=== PATIENT | male | born 1950 | race Caucasian/White ===

== ENCOUNTER 2016-11-16 22:34 | Inpatient (IN) ==
[2016-11-17 00:43] LABS: Basophils % 0.4 % (0.0-0.8); Eosinophils # 0.3 10*3/uL (0.0-0.87); Eosinophils % 3.7 % (0.00-10.9); Hematocrit 37.7 VOL% (42.0-52.0); Hemoglobin 13.7 GM/DL (14.0-18.0); Immature Granulocytes % 0.1 %; Immature Granulocytes Absolute 0.01 #; Lymphocytes # 3.1 10*3/uL (1.4-4.0); Lymphocytes % 39.2 % (21.2-54.2); Mean Corpuscular HGB Conc 36.3 GM/DL (32-36); Mean Corpuscular Hemoglobin 31 PG (27-34); Mean Corpuscular Volume 85.9 FL (87-102); Mean Platelet Volume 9.1 FL (9.6-12.0); Monocytes # 0.7 10*3/uL (0.11-0.8); Monocytes % 8.5 % (1.7-12.7); Neutrophils # 3.8 10*3/uL (1.4-7.4); Neutrophils % 48.1 % (38.7-73.9); Platelet Count 234 T/CUMM (130-400); Red Blood Count 4.39 MC/CUMM (3.8-5.5); Red Cell Distribution Width 12.5 % (9.3-17.3); White Blood Count 7.9 T/CUMM (4-12)
[2016-11-17 01:18] LABS: Alanine Aminotransferase 17 U/L (16-61); Albumin 3.5 G/DL (3.4-5.0); Alkaline Phosphatase 83 U/L (45-117); Aspartate Amino Transferase 20 U/L (0-37); Bilirubin,Total < 0.39 MG/DL (0.2-1.0); Blood Urea Nitrogen 13 MG/DL (7-18); Calcium 8.1 MG/DL (8.5-10.1); Glucose 97 MG/DL (74-106); Osmolality,Calculated 278.4 MOS/KG (273-304); Potassium 3.5 MMOL/L (3.5-5.1); Sodium 140 MMOL/L (136-145); Total Protein 6.8 G/DL (6.4-8.3); Troponin I Only 0.051 NG/ML (0.00-0.045)
--- NOTE | 2016-11-17 01:46 | EKG Report ---
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
--- NOTE | 2016-11-17 02:08 | Emergency Department Note ---
Arrival - Arrival Chief Complaint: Fall Stated Complaint: Fall ED Nursing Triage Note: Pt was at home when he fell approximately 3-4 hours ago. Stated he hit his head and lost consciousness for a few minutes. Pt has complaint of headache, neck pain, and back pain rated as a 10 on 0-10 scale. No bruising or visible deformities. Mode of Arrival: Stretcher Time Seen by Provider: 11/16/16 23:01 - History of Present Illness HPI Narrative: This is a 66-year-old white male with a history of hypertension, COPD, and type 2 diabetes who presents with a syncopal episode which occurred just prior to arrival. The patient says he was in his kitchen when suddenly he felt dizzy. He woke up in the floor with neck pain and head ache. He believes that he struck his head on a toolbox because it was also on the floor when he woke up. Does not remember any of his syncopal episode. He denies any chest pains palpitations diaphoresis nor vomiting Allergies/Adverse Reactions: Allergies Allergy/AdvReac Type Severity Reaction Status Date / Time Trovafloxacin [From Trovan] Allergy Severe HIVES Verified 11/16/16 22:47 venom-honey bee Allergy ANAPHYLAXIS Verified 11/16/16 22:47 [bee venom (honey bee)] COMBID Allergy Severe HIVES Uncoded 11/16/16 22:47 Home Medications: Home Medications Medication Instructions Recorded Confirmed Type Indomethacin Cap [Indocin Cap] 25 mg PO TID #30 capsule 04/17/16 Rx Tizanidine HCl [Zanaflex] 2 mg PO Q6H #40 capsule 04/17/16 Rx predniSONE TAB [PredniSONE] 20 mg PO DAILY #15 tablet 04/17/16 Rx Review of System - Review of System Constitutional: Absent: fever, night sweats Eyes: Absent: redness, vision change Head/Ears/Nose/Throat: Absent: epistaxis, nasal drainage Respiratory: Absent: respiratory distress, wheezing Cardiovascular: Present: dyspnea on exertion, syncope. Absent: chest pain, palpitations Gastrointestinal: Absent: diarrhea, constipation Genitourinary male: Absent: dysuria, hematuria Musculoskeletal: Absent: joint swelling, lower back pain Skin: Absent: change in color, change in hair/nails Neurological: Absent: numbness, paresthesias Psychiatric: Absent: anxiety, depression Endocrine: Absent: heat intolerance, polydipsia Hematological/Lymphatic: Absent: easy bruising, lymphadenopathy Allergic/Immunologic: Absent: urticaria, itchy eyes Medical,Surgical,& Family Hx - Medical History Cardio: History of: Hypertension Neurology: No history of: Seizures Endocrine: History of: Diabetes Mellitus (NIDDM) Respiratory: History of: COPD Gastrointestinal: History of: GERD Other: History of: Miscellaneous Medical Problems (sleep apnea) - Social History Smoking Status: Former smoker Frequency of Alcohol Use: None Type of Drug Use: None Exam Vital Signs: Vital Signs Temperature 97.8 F 11/16/16 22:42 Pulse Rate 79 11/16/16 22:42 Respiratory Rate 18 11/16/16 22:42 Blood Pressure 131/88 11/16/16 22:42 O2 Sat by Pulse Oximetry 94 L 11/16/16 22:42 - General General appearance: alert - Head Head exam: Present: atraumatic, normocephalic - Eye Eye exam: Present: normal appearance, PERRL, EOMI - ENT ENT exam: Present: normal exam, normal oropharynx - Neck Neck exam: Present: normal inspection, full ROM - Chest Chest inspection: Present: normal inspection - Respiratory Respiratory exam: Present: normal lung sounds bilaterally - Cardiovascular Cardiovascular exam: Present: regular rate, normal rhythm - Abdominal Exam Abdominal exam: Present: soft, normal bowel sounds - Extremities Exam Extremities exam: Present: normal inspection, full ROM - Back Exam Back exam: Present: normal inspection, full ROM - Neurological Exam Neurological exam: Present: alert, oriented X3, CN II-XII intact - Psychiatric Psychiatric exam: Present: normal affect, normal mood - Skin Skin exam: Present: warm, dry Course Course Narrative: The patient's troponin is slightly elevated. Electric cardiogram looks normal. The CT scan of the brain and the cervical spine are normal. Because the patient had a syncopal episode and a slightly elevated troponin it seems reasonable the patient be admitted to the hospital for further evaluation and treatment. The case was discussed with the hospitalist who agreed to admit the patient to the hospital. Results - Labs CBC & BMP: 11/16/16 00:35 11/16/16 00:35 Disposition Clinical Impression: Syncope, Elevated troponin Disposition: Still a Patient
[2016-11-17] MEDS ORDERED: ACETAMINOPHEN 325 MG TABLET PO PRN (03:26)
[2016-11-17] MEDS ORDERED: ONDANSETRON 4 MG/2 ML VIAL IV PRN (03:26)
--- NOTE | 2016-11-17 05:53 | Hospitalist History & Physical ---
Assessment and Plan - Time spent with patient Time spent with patient: Less than 30 minutes (1) Syncope Status: Acute Assessment and plan: Will place on telemetry floor CT head negative Neuro checks q4 Serial troponins Current Visit: Yes (2) Elevated troponin Status: Acute Current Visit: Yes (3) Hypertension Status: Chronic Assessment and plan: Will restart medications once confirmed Current Visit: No (4) Diabetes Status: Chronic Assessment and plan: SSI with Accuchecks Will restart home medications once confirmed. Current Visit: No History of Present Illness Chief complaint: syncope episode History of present illness: Called to the ER for Mr. Lantigua who is a 66 year old male that passed out at home while in the kitchen earlier today. He denied chest pain, shortness of breath, palpitations prior to the fall. He states he did experience dizziness before falling. He was unsure of how long he was unconscious or if he hit his head. Patient awoke to find himself on the floor of his home. Patient states he has had hot and cold spells for the last two weeks. In the ER, a CT of the head and C-spine were performed and were negative. EKG was negative. Patient had an elevated troponin. He will be admitted on the telemetry floor for close monitor with serial troponins and cardiology consultation. Home Medications Medication Instructions Recorded Confirmed Type Allopurinol 1 tablet PO DAILY 11/17/16 11/17/16 History Amlodipine Besylate 1 tablet PO DAILY 11/17/16 11/17/16 History Clopidogrel [Plavix] 1 tablet PO DAILY 11/17/16 11/17/16 History Cyclobenzaprine [Flexeril] 1 tablet PO TID PRN 11/17/16 11/17/16 History Furosemide Tab [Lasix Tab] 1 tablet PO BID 11/17/16 11/17/16 History Gemfibrozil 1 tablet PO BID 11/17/16 11/17/16 History Lisinopril 1 tablet PO BID 11/17/16 11/17/16 History Metoprolol Succinate 1 tablet PO DAILY 11/17/16 11/17/16 History Mirtazapine 1 tablet PO BEDTIME 11/17/16 11/17/16 History Omeprazole 1 capsule PO DAILY 11/17/16 11/17/16 History Oxycodone HCl/Acetaminophen 1 tablet PO QID PRN 11/17/16 11/17/16 History [Oxycodone-Acetaminophen 10-325] Phenytoin Sodium Extended 2 capsule PO DAILY W/BREAKFAST 11/17/16 11/17/16 History Phenytoin Sodium Extended 3 capsule PO DAILY W/SUPPER 11/17/16 11/17/16 History Potassium Chloride 1 tablet PO DAILY 11/17/16 11/17/16 History Pregabalin [Lyrica] 1 capsule PO BID 11/17/16 11/17/16 History Saxagliptin HCl/Metformin HCl 1 tablet PO DAILY 11/17/16 11/17/16 History [Kombiglyze Xr 5-1,000 mg Tab] Zolpidem Tartrate [Ambien] 1 tablet PO BEDTIME PRN 11/17/16 11/17/16 History Allergies Allergy/AdvReac Type Severity Reaction Status Date / Time Trovafloxacin [From Trovan] Allergy Severe HIVES Verified 11/16/16 22:47 venom-honey bee Allergy ANAPHYLAXIS Verified 11/16/16 22:47 [bee venom (honey bee)] COMBID Allergy Severe HIVES Uncoded 11/16/16 22:47 Medical,Surgical,& Family Hx - Medical History Cardio: History of: Hypertension Neurology: History of: Neurological Problems (tremors) No history of: Seizures Endocrine: History of: Diabetes Mellitus (NIDDM), Dyslipidemia Rheumatology: History of;: Gout Respiratory: History of: COPD, Obstructive Sleep Apnea Gastrointestinal: History of: GERD Musculoskeletal: History of: Back/Neck Problems Other: History of: Miscellaneous Medical Problems (sleep apnea) - Surgical History Cardiac Surgeries: Sugical HX of: Femoral-Popliteal Bypass Graft - Family History Family History: Reports;: Family Diabetes, Family Heart Disease - Social History Smoking Status: Former smoker Frequency of Alcohol Use: None Type of Drug Use: None Marital Status: Single Lives With:: Alone Functional capacity: independent ambulation - Constitutional Constitutional: Present: chills. Absent: anorexia, weakness - Cardiovascular Cardiovascular: Absent: chest pain at rest, chest pain with activity, diaphoresis, dyspnea, edema, orthopnea, palpitations - Respiratory Respiratory: Absent: cough - Gastrointestinal Gastrointestinal: Absent: abdominal pain, constipation, diarrhea, dysphagia, nausea, vomiting - Genitourinary Genitourinary: Absent: difficulty urinating - Neurological Neurological: Present: dizziness Exam - Constitutional Vitals: Period Temp Pulse Resp BP Sys/[place] Pulse Ox Last 24 Hr 97.8 F-98.5 F 72-79 16-18 131-156/88-96 94-97 General appearance: normal weight, over weight - Head Head exam: Present: normal inspection, normocephalic - Eye Eye exam: Present: EOMI Pupils: Present: JASMIN, normal accommodation - ENT ENT exam: Present: normal exam - Neck Neck exam: Present: normal inspection - Respiratory Respiratory exam: Present: clear to auscultation bilaterally. Absent: accessory muscle use (Respirations even and non-labored with symmetrical rise and fall of chest noted. ) - Cardiovascular Cardiovascular exam: Present: regular rate and rhythm - GI/Abdominal GI/Abdominal exam: Present: normal bowel sounds, soft. Absent: firm, tenderness - Extremities Exam Extremities exam: Present: normal inspection, normal capillary refill, full ROM - Back Exam Back exam: Present: normal inspection - Neurological Exam Neurological exam: Present: alert, oriented X3 (Respirations even and non- labored with symmetrical rise and fall of chest noted. ) - Psychiatric Psychiatric exam: Present: normal affect - Skin Skin exam: Present: normal color, warm, dry, intact Results - Labs CBC & BMP: 11/16/16 00:35 11/16/16 00:35 Lab Results: I have reviewed the past 24 hour labs
[2016-11-17] MEDS ORDERED: DIAZEPAM 5 MG TABLET PO ONE (08:00)
[2016-11-17] MEDS ORDERED: diphenhydrAMINE CAP 25 MG CAPSULE PO ONE (08:00)
[2016-11-17] MEDS ORDERED: ASPIRIN 325 MG TABLET PO ONE (08:04)
--- NOTE | 2016-11-17 08:10 | CT Report ---
CT of the head without contrast. Indication: Syncope. Head trauma. No prior studies. There is a preliminary report from the [facility]. There is calcific plaque present within the vertebral arteries and intracranial internal carotid arteries. There is generalized prominence of the ventricles and sulci consistent with atrophy of aging. There is no mass effect, midline shift, or area of hemorrhage. No cortical infarcts are seen at this time. Suspected small lacunar infarct in the left external capsule. The calvarium is intact. The included paranasal sinuses and the mastoid air cells are clear. Impression: Generalized atrophy. Chronic ischemic change. No evidence of acute intracranial injury. The CT exam was performed using one or more of the following dose reduction techniques: Automated exposure control, adjustment of the mA and/or kV according to patient size, or use of iterative reconstruction technique. PROCEDURE INTERPRETED AT [facility] DEPARTMENT OF RADIOLOGY Final Report Signed by: Dr. Omaira Reid
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
--- NOTE | 2016-11-17 08:31 | Hospitalist Progress Note ---
Assessment and Plan (1) Syncope Status: Acute Assessment and plan: Abrupt onset unassociated with prodrome. Angiographic evidence of subacute left anterior descending coronary artery occlusion with successful percutaneous intervention performed. 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 Current Visit: No Qualifiers: Diabetes mellitus type: type 2 Hospitalist: Subjective Interval history: 66-year-old male hypertensive, diabetic with history of obstructive sleep apnea sustained an abrupt syncopal episode while at home. Patient uses a walker for what sounds like a fairly substantial diabetic peripheral neuropathy. He has episodes of upright lightheadedness but on this occasion reports no prodrome before his loss of consciousness. He has had some neck pain since the fall but no chest pain shortness of breath etc. Patient has been evaluated by cardiology with coronary angiography completed earlier this morning. Findings indicate a subacute occlusion of the left anterior descending coronary artery associated with appropriate segmental wall motion abnormality. Left ventricular end-diastolic pressure was normal percutaneous intervention was successfully undertaken. It is felt that the symptoms described by the patient several weeks ago were likely the clinical manifestations of this occlusion. Exam - Constitutional Vitals: Period Temp Pulse Resp BP Sys/[place] Pulse Ox Last 24 Hr 97.4 F-98.5 F 72-84 16-20 131-156/88-97 94-98 General appearance: over weight - Respiratory Respiratory exam: Present: clear to auscultation bilaterally. Absent: rales, rhonchi, wheezes - Cardiovascular Cardiovascular exam: Present: regular rate and rhythm - GI/Abdominal GI/Abdominal exam: Present: normal bowel sounds. Absent: distended, organomegaly, tenderness - Extremities Exam Extremities exam: Absent: edema - Neurological Exam Neurological exam: Present: alert, oriented X3 Results - Labs CBC & BMP: 11/16/16 00:35 11/16/16 00:35 Labs: Cardiac troponin I 0.05 - Impressions Sinus rhythm with intra-atrial conduction delay and mid precordial T-wave inversions. - Diagnostic Findings Procedure: CT: report reviewed by me (CT of head shows atrophy with small vessel changes)
[2016-11-17] MEDS: LISINOPRIL 20 MG TABLET PO SCH ×2 (08:34→21:10)
[2016-11-17] MEDS: amLODIPine 10 MG TABLET PO SCH (08:35)
[2016-11-17] MEDS: CLOPIDOGREL 75 MG TABLET PO SCH (08:35)
[2016-11-17] MEDS: PANTOPRAZOLE 40 MG TABLET PO SCH (08:35)
[2016-11-17] MEDS ORDERED: HEPARIN/NACL 0.9% 2 UNITS/ML 1,000 ML IV ONE (08:36)
[2016-11-17] MEDS ORDERED: LIDOCAINE 1% 20 ML VIAL ONE (08:36)
[2016-11-17] MEDS: METOPROLOL SUCCINATE XL 50 MG TABLET PO SCH (08:36)
[2016-11-17] MEDS: SODIUM CHLORIDE 0.45% 1,000 ML IV SCH ×2 (08:37→17:18)
[2016-11-17] MEDS ORDERED: MIDAZOLAM 2 MG/2 ML VIAL ONE ×3 (08:39→09:46)
[2016-11-17] MEDS ORDERED: fentaNYL 100 MCG/2 ML VIAL ONE (08:40)
[2016-11-17] MEDS ORDERED: NITROGLYCERIN DRIP 50 MG/250 ML BOTTLE IV ONE (08:45)
[2016-11-17] MEDS ORDERED: VERAPAMIL 5 MG/2 ML VIAL ONE (08:45)
[2016-11-17] MEDS ORDERED: ENOXAPARIN 40 MG/0.4 ML SYRINGE SUBCUT SCH (09:00)
[2016-11-17] MEDS ORDERED: diphenhydrAMINE 50 MG/1 ML VIAL ONE (09:04)
--- NOTE | 2016-11-17 09:27 | CT Report ---
CT of the cervical spine without contrast. Indication: Syncope. Neck trauma, injury, and pain. There is a preliminary report from [facility]. There is a comparison study from November 29, 2009. Axial images were obtained with sagittal and coronal 2-D reconstructions. The appearance of the craniovertebral junction is within normal limits. There are prominent degenerative changes between the anterior ring of C1 and the odontoid. There is straightening of the normal lordosis of the cervical spine which was also present in 2010. At C3-C4, there is posterior osteophyte formation and disc bulging. At C4-C5, there is calcification in the anterior longitudinal ligament, posterior osteophyte formation and disc bulging. At C5-C6, there is loss of disc space height, anterior longitudinal ligament calcification, and prominent anterior and posterior osteophytes with posterior disc bulging. At C6-C7, there is moderate anterior osteophyte formation and calcification within the anterior longitudinal ligament. Is posterior osteophyte formation and posterior disc bulging. At the 7-T1 and T1-T2, there is calcification in the anterior longitudinal ligament, degenerative endplate changes, posterior disc bulging, and posterior osteophyte formation. There is multilevel facet arthropathy. No fracture or dislocation. No lytic or blastic lesion. Impression: Straightening of the normal curvature of the cervical spine. This may be positional in nature or due to muscle spasm. It is unchanged compared to 2009. Degenerative changes are present, which have progressed since the previous study. No evidence of acute fracture. The CT exam was performed using one or more of the following dose reduction techniques: Automated exposure control, adjustment of the mA and/or kV according to patient size, or use of iterative reconstruction technique. PROCEDURE INTERPRETED AT [facility] DEPARTMENT OF RADIOLOGY Final Report Signed by: Dr. Omaira Reid
[2016-11-17] MEDS ORDERED: HEPARIN 5,000 UNIT/1 ML VIAL ONE (09:46)
[2016-11-17] MEDS ORDERED: CLOPIDOGREL 300 MG TABLET ONE (10:11)
--- NOTE | 2016-11-17 10:29 | Cardiac Catheterization ---
Date of Procedure:: 11/17/16 Pre-op Diagnosis: Syncope and story consistent with subacute presentation for myocardial infarction Post-op diagnosis: other (100% occluded mid left anterior distending artery with JOSEPH 0 flow status post successful PCI with a 2.5 x 16 mm Synergy drug- eluting stent postdilated to high pressure atmospheres with an NC Quantum balloon less than 10% residual angiographic stenosis and JOSEPH-3 flow at completion) Procedure: After consent was taken from the patient. Time out was taken and recorded. Taken to the catheterization lab for left heart catheterization via the right radial approach. The wire could not transition the takeoff of the carotid. Lovenox was not given at this time however the cocktail was given intra- arterially there is no apparent complication of this area. The procedure was converted to right femoral access. 1% lidocaine was infiltrated in the skin and subcutaneous tissue overlying the right femoral artery. Modified Seldinger technique and an 18-gauge [place] needle was used for access to the right femoral artery. An 0.35 J-wire was advanced through the needle into the central aorta under fluoroscopy. A small skin was made and a 6 [place] sheath was placed over the wire. The sheath was aspirated and flushed. A JL46 was advanced over the wires in the left main coronary artery was selectively engaged. Multiple orthogonal views of the left system were obtained. The catheter was then exchanged over the wire. The sheath was aspirated and flushed. A JR4 catheter was advanced over the wire into the central aorta. The right coronary was selectively engaged and orthogonal views of the right coronary artery were obtained. The catheter was then exchanged over the wire, the sheath was aspirated and flushed. At this time an angled pigtail catheter was advanced across the aortic valve into the ventricle. Pressure measurements were obtained and a cine ventriculogram was performed in the EPPERSON projection with 10 mL contrast. Pullback measurements were performed. The cloth bleaching range operator chief reviewed the films and the room set up for the intervention mode. 5000 units of intravenous heparin were given the ACT was 210 seconds and additional 2000 units of heparin were given. The patient was on a background of chronic clopidogrel therapy. At this time and EBU 4.0 guiding cath advanced over the catheter into central aorta the left main could not be cannulated. Cath was then exchanged over wire for an EBU 3.5 guiding catheter. At this time a 180 cm ScanSocial-water wire was advanced to what appeared to be the cap of this occluded vessel and it would not cross it would buckle and was in a very small nipple but would not cross the short 100% occlusion. The wire was then removed and a exchange length Confianza Pro was advanced to the area previously accessed by the pro-water and with minimal manipulation crossed the Into the distal vessel. Once this was verified with collateral visualization of the distal vessel 135 cm Turnpike was advanced over the Confianza Pro and it was exchanged for an exchange length pro-water wire. The Turnpike was removed and a 2.0 x 12 mm trek balloon was advanced area stenosis in 2 inflations were made there was JOSEPH II flow reestablished in the distal vessel wire was verified to be clearly in the lumen at this point. Now a 2.5 x 16 mm Synergy balloon stent was advanced and deployed in the mid LAD with the marker at the takeoff of the first diagonal. Because of the morphology of the plaque at this takeoff a previously U short pro-water had been placed in the diagonal. There was some plaque shift. Both vessels were widely patent with JOSEPH-3 flow. At this time the stent was postdilated to high pressure atmospheres with a 2.5 x 15 mm NC Quantum balloon. At this time there was what appeared to be plaque shift or spasm in the diagonal and the wire was left in place in this diagonal. 200 mcg of intracoronary nitroglycerin were given there was dramatic improvement in this vessel does appear to be spasm. Both wires removed in 2 orthogonal views were taken. There is no apparent complication the guiding catheter was exchanged over the wire of the sheaths were aspirated and flushed. The sheath was aspirated and flushed and a right femoral and iliac angiography was performed. The access site was amenable for closure and the area was reprepped with ChloraPrep and draped with sterile towels. The Mynx closure device was used in standard technique. There was no hematoma and distal pulses were good. At this time a TR band was placed over the right radial access and good hemostasis was obtained. Total diagnostic fluoroscopy time 20.8 minutes total fluoroscopy dose 1453 mg. Total contrast exposure 280 cc of Omnipaque FINDINGS: LV: 130/1 LVEDP: 21 Ao: 120/66 EF: Estimated to be 40% with some maximal opacification of the right ventricle appears to be mid to distal anterior wall hypokinesis LM: Angiographically normal LAD: The proximal segment is angiographically normal gives rise to a moderate size first diagonal. There is a smooth nearly flush occlusion at the takeoff of the first diagonal. There is a very small or scant nipple there is also takeoff of a septal hydraulic repairer at this location. There is collateralization of the distal left anterior descending artery from the left circumflex distribution it reaches the apex and ascends briefly the inferior ventricular myocardium. Clinically this occlusion appeared to occur approximately 3-1/2 weeks ago. Morphologically it looks like a chronic occlusion however historically it appears to be about 3 weeks old LCx: The large co-ndominant vessel is angiographically normal RCA: An average size vessel is co-dominant RFA/JESUS: Angiographically normal however stick is not amenable to closure with Angio-Seal Assessment: 1. 100% occluded mid left anterior descending artery status post successful PCI with KELLY 1 (2.5 x 16 mm Synergy) postdilated to high pressure atmospheres with 2 5 NC balloon 2. Ischemic cardiomyopathy, decompensated end-diastolic pressure of 21 mmHg 3. Diabetes 4. Dyslipidemia 6. Hypertension PLAN: 1. Therapeutic lifestyle changes and risk factor modification 2. Dual antiplatelet therapy for a minimum of 1 year 3. DELIA inhibitor, beta-kendra, statin 4. Monitor for complications including dysrhythmia and anemia 5. Cardiac rehabilitation Implants: 2.5 x 16 mm Synergy drug-eluting stent and minx closure device Anesthesia: moderate conscious sedation Surgeon / Physician: Dora Thacker Wardrobe Technician: none Estimated blood loss: none Specimens: none sent Condition: stable - Medications / Follow-up
[2016-11-17] MEDS: PHENYTOIN ER 100 MG CAPSULE PO SCH ×2 (10:41→16:39)
[2016-11-17] MEDS: sitaGLIPtin 100 MG TABLET PO SCH (10:41)
[2016-11-17] MEDS: GEMFIBROZIL 600 MG TABLET PO SCH ×2 (10:41→21:10)
[2016-11-17] MEDS: PREGABALIN 75 MG CAPSULE PO SCH ×2 (10:42→21:11)
[2016-11-17] MEDS: POTASSIUM CHLORIDE 20 MEQ TABLET PO SCH (10:42)
[2016-11-17] MEDS: FUROSEMIDE 20 MG TABLET PO SCH ×2 (10:42→16:38)
[2016-11-17] MEDS: ASPIRIN EC 81 MG TABLET PO SCH (10:42)
[2016-11-17] MEDS: ALLOPURINOL 100 MG TABLET PO SCH (10:42)
[2016-11-17] MEDS ORDERED: CYCLOBENZAPRINE 10 MG TABLET PO PRN (13:28)
[2016-11-17] MEDS ORDERED: ZALEPLON 5 MG CAPSULE PO PRN (13:28)
--- NOTE | 2016-11-17 13:36 | ECHO Report ---
Steve Lantigua Exam Date: 11/17/2016 12:29 Referring Physician: Technologist: Marivel Meza Age: 66 Ht (in): 61 Wt (lb): 249 Gender: M Exam Location: [facility] Echo Indications: HTN, diabetes, PAD, CHF, elevated troponin, syncope, dyslipidemia, GERD, Hx. TIA, post cath BP: 140 / 97 HR: 84 Rhythm: Sinus Technical Quality: Technically difficult study IMPRESSIONS Left ventricular ejection fraction is estimated at 55 %. There is mid to distal anterior wall hypokinesis. Moderate concentric left ventricular hypertrophy with grade I diastolic dysfunction. Tricuspid regurgitation velocities suggest a RVSP of 17 mmHg + RAP. MEASUREMENTS (Male / Female) Normal Values 2D ECHO LV Diastolic Diameter PLAX 4.3 cm 4.2 - 5.9 / 3.9 - 5.3 cm LV Systolic Diameter PLAX 3.3 cm LV Fractional Shortening PLAX 22.6 % IVS Diastolic Thickness 1.6 cm 0.6 - 1.0 / 0.6 - 0.9 cm LVPW Diastolic Thickness 1.5 cm 0.6 - 1.0 / 0.6 - 0.9 cm Aortic Root Diameter 3.0 cm LA Systolic Diameter LX 3.4 cm 3.0 - 4.0 / 2.7 - 3.8 cm DOPPLER TR Peak Velocity 208.0 cm/s TR Peak Gradient 17.3 mmHg FINDINGS Left Ventricle Normal left ventricular cavity size. Moderate concentric left ventricular hypertrophy with grade I diastolic dysfunction. Left ventricular ejection fraction is estimated at 55 %. There is mid to distal anterior wall hypokinesis. Is seen best in the parasternal long axis views. Right Ventricle Normal right ventricular size. Right Atrium Normal right atrial size. Left Atrium Normal left atrial size. Mitral Valve Mild mitral annular and leaflet calcification with mild mitral regurgitation. Aortic Valve Mild aortic valve sclerosis without stenosis or regurgitation. Tricuspid Valve Morphologically normal tricuspid valve. Trace tricuspid valve regurgitation. Tricuspid regurgitation velocities suggest a RVSP of 17 mmHg + RAP. Pulmonic Valve Morphologically normal pulmonic valve. Pericardium No pericardial effusion. Aorta Normal size aortic root and proximal ascending aorta. Dora Thacker (Electronically Signed) Final Date: 17 November 2016 13:35
[2016-11-17] MEDS: ATORVASTATIN 40 MG TABLET PO SCH (21:10)
[2016-11-17] MEDS: MIRTAZAPINE 15 MG TABLET PO SCH (21:10)
[2016-11-17] MEDS: oxyCODONE/ACETAMINOPHEN 5-325 MG TABLET PO PRN (21:11)
[2016-11-18 04:29] LABS: Basophils % 0.4 % (0.0-0.8); Eosinophils # 0.3 10*3/uL (0.0-0.87); Eosinophils % 3.3 % (0.00-10.9); Hematocrit 38.3 VOL% (42.0-52.0); Hemoglobin 13.3 GM/DL (14.0-18.0); Immature Granulocytes % 0.4 %; Immature Granulocytes Absolute 0.03 #; Lymphocytes # 2.3 10*3/uL (1.4-4.0); Lymphocytes % 28.3 % (21.2-54.2); Mean Corpuscular HGB Conc 34.7 GM/DL (32-36); Mean Corpuscular Hemoglobin 30 PG (27-34); Mean Corpuscular Volume 87.2 FL (87-102); Mean Platelet Volume 9.4 FL (9.6-12.0); Monocytes # 0.8 10*3/uL (0.11-0.8); Monocytes % 9.8 % (1.7-12.7); Neutrophils # 4.8 10*3/uL (1.4-7.4); Neutrophils % 57.8 % (38.7-73.9); Platelet Count 257 T/CUMM (130-400); Red Blood Count 4.39 MC/CUMM (3.8-5.5); Red Cell Distribution Width 12.6 % (9.3-17.3); White Blood Count 8.2 T/CUMM (4-12)
[2016-11-18 05:04] LABS: Calcium 8.1 MG/DL (8.5-10.1); Osmolality,Calculated 281.3 MOS/KG (273-304); Potassium 3.8 MMOL/L (3.5-5.1)
--- NOTE | 2016-11-18 07:36 | Cardiology Progress Note ---
Assessment and Plan (1) Dyslipidemia Status: Chronic Current Visit: Yes (2) Gastroesophageal reflux disease Status: Chronic Current Visit: Yes (3) Syncope Status: Acute Assessment and plan: See HPI Current Visit: Yes (4) Hypertension Status: Chronic Current Visit: No (5) Diabetes Status: Chronic Current Visit: No Qualifiers: Diabetes mellitus type: type 2 (6) History of TIA (transient ischemic attack) Status: Chronic Current Visit: Yes (7) PAD (peripheral artery disease) Status: Chronic Assessment and plan: He has good distal pulses but says that he has previously had stents placed by Dr. Paz Current Visit: Yes (8) Polypharmacy Status: Chronic Current Visit: Yes (9) Coronary artery disease Status: Acute Current Visit: Yes Qualifiers: Coronary Disease-Associated Artery/Lesion type: [place] artery [place] vs. transplanted heart: [place] heart Associated angina: without angina Qualified Code(s): I25.10 - Atherosclerotic heart disease of [place] coronary artery without angina pectoris Cardiology - PN: Subj Interval history: Mr. Lantigua has no complaint. He has had no events on telemetry. The patient has not experienced chest discomfort. He had PCI of the mid LAD yesterday with what appears to be a subacute closure. Clinically it appears to have happened approximately 3 weeks ago he has an ejection fraction that is mild to moderately depressed by echo he has ejection fraction appears almost normal however by ventriculogram which was suboptimal and appear to be slightly less I think this is due to technique of the ventriculogram. The patient has no speech chest pain he has not had any dysrhythmia. His blood pressure slightly elevated may need to increase his medications. He initially presented with syncope but because of the story that he had given his abnormalities of what appeared to be a subacute or ischemic anterolateral ischemia he underwent left heart catheterization that showed 100% occluded LAD with some less than brisk collateral flow to the LAD from the left circumflex system he had successful crossing and PCI of the mid LAD with a drug-eluting stent. He has other evaluations for syncope that are still pending. He will likely need an event monitor at discharge. I am not sure if his syncope is related or unrelated to his coronary artery disease. His story is suggestive of dysrhythmia. He lives alone and his episode was unwitnessed so the actual duration when he was unconscious is not clear. From a cardiovascular standpoint he may be discharged at any time with recommendations of having an event monitor at discharge. He will need follow-up in approximately 2 weeks after discharge. Exam (Progress Note) - Constitutional Vitals: Period Temp Pulse Resp BP Sys/[place] Pulse Ox Last 24 Hr 96.3 F-98.8 F 66-77 16-18 114-148/59-93 95-100 General appearance: over weight - Head Head exam: Present: normal inspection - Eye Eye exam: Present: EOMI Pupils: Present: JASMIN - Respiratory Respiratory exam: Present: clear to auscultation bilaterally - Cardiovascular Cardiovascular exam: Present: regular rate and rhythm - GI/Abdominal GI/Abdominal exam: Present: normal bowel sounds - Extremities Exam Extremities exam: Present: normal inspection - Back Exam Back exam: Present: normal inspection - Neurological Exam Neurological exam: Present: alert, oriented X3 - Psychiatric Psychiatric exam: Present: normal affect, normal mood - Skin Skin exam: Present: normal color, warm, dry Result/EKG - Labs CBC & BMP: 11/18/16 02:39 11/18/16 02:39 Labs: Laboratory Results - last 24 hr 11/17/16 11/17/16 11/17/16 07:10 10:54 11:40 WBC RBC Hgb Hct MCV MCH MCHC RDW Plt Count MPV Neut % (Auto) Lymph % (Auto) [place] % (Auto) Eos % (Auto) Baso % (Auto) Neut # (Auto) Lymph # (Auto) [place] # (Auto) Eos # (Auto) Baso # (Auto) Immature Gran % Nucleated RBC % Immature Gran # Nucleated RBCs # Immature Plt Fraction Sodium Potassium Chloride Carbon Dioxide Anion Gap BUN Creatinine GFR Calculation BUN/Creatinine Ratio Glucose POC Glucose 96 100 Calculated Osmolality Calcium Troponin I 0.067 H D 11/17/16 11/17/16 11/17/16 11:50 14:06 15:14 WBC RBC Hgb Hct MCV MCH MCHC RDW Plt Count MPV Neut % (Auto) Lymph % (Auto) [place] % (Auto) Eos % (Auto) Baso % (Auto) Neut # (Auto) Lymph # (Auto) [place] # (Auto) Eos # (Auto) Baso # (Auto) Immature Gran % Nucleated RBC % Immature Gran # Nucleated RBCs # Immature Plt Fraction Sodium Potassium Chloride Carbon Dioxide Anion Gap BUN Creatinine GFR Calculation BUN/Creatinine Ratio Glucose POC Glucose 123 H Calculated Osmolality Calcium Troponin I 0.079 H 0.101 H D 11/17/16 11/17/16 11/18/16 16:27 21:27 02:39 WBC 8.2 RBC 4.39 Hgb 13.3 L Hct 38.3 L MCV 87.2 MCH 30 MCHC 34.7 RDW 12.6 Plt Count 257 MPV 9.4 L Neut % (Auto) 57.8 Lymph % (Auto) 28.3 [place] % (Auto) 9.8 Eos % (Auto) 3.3 Baso % (Auto) 0.4 Neut # (Auto) 4.8 Lymph # (Auto) 2.3 [place]ier # (Auto) 0.8 Eos # (Auto) 0.3 Baso # (Auto) 0.0 Immature Gran % 0.4 Nucleated RBC % 0.0 Immature Gran # 0.03 Nucleated RBCs # 0.00 Immature Plt Fraction 0.0 Sodium Potassium Chloride Carbon Dioxide Anion Gap BUN Creatinine GFR Calculation BUN/Creatinine Ratio Glucose POC Glucose 161 H Calculated Osmolality Calcium Troponin I 0.121 H 11/18/16 02:39 WBC RBC Hgb Hct MCV MCH MCHC RDW Plt Count MPV Neut % (Auto) Lymph % (Auto) [place] % (Auto) Eos % (Auto) Baso % (Auto) Neut # (Auto) Lymph # (Auto) [place] # (Auto) Eos # (Auto) Baso # (Auto) Immature Gran % Nucleated RBC % Immature Gran # Nucleated RBCs # Immature Plt Fraction Sodium 141 Potassium 3.8 Chloride 106 Carbon Dioxide 28 Anion Gap 10.8 BUN 14 Creatinine 0.90 GFR Calculation 120 BUN/Creatinine Ratio 15.00 Glucose 104 POC Glucose Calculated Osmolality 281.3 Calcium 8.1 L Troponin I Quality Measures - VTE Contraindication to Pharmacological VTE Prophylaxis: High Risk of Bleeding
[2016-11-18] MEDS: ASPIRIN EC 81 MG TABLET PO SCH (08:10)
[2016-11-18] MEDS: METOPROLOL SUCCINATE XL 50 MG TABLET PO SCH (08:10)
[2016-11-18] MEDS: FUROSEMIDE 20 MG TABLET PO SCH ×2 (08:10→15:06)
[2016-11-18] MEDS: amLODIPine 10 MG TABLET PO SCH (08:10)
[2016-11-18] MEDS: LISINOPRIL 20 MG TABLET PO SCH ×2 (08:10→21:23)
[2016-11-18] MEDS: GEMFIBROZIL 600 MG TABLET PO SCH ×2 (08:10→21:23)
[2016-11-18] MEDS: CLOPIDOGREL 75 MG TABLET PO SCH (08:10)
[2016-11-18] MEDS: POTASSIUM CHLORIDE 20 MEQ TABLET PO SCH (08:10)
[2016-11-18] MEDS: sitaGLIPtin 100 MG TABLET PO SCH (08:10)
[2016-11-18] MEDS: PHENYTOIN ER 100 MG CAPSULE PO SCH ×2 (08:10→16:21)
[2016-11-18] MEDS: PANTOPRAZOLE 40 MG TABLET PO SCH (08:10)
[2016-11-18] MEDS: PREGABALIN 75 MG CAPSULE PO SCH ×2 (08:10→21:23)
[2016-11-18] MEDS: ALLOPURINOL 100 MG TABLET PO SCH (08:11)
[2016-11-18] MEDS: CHLORTHALIDONE 25 MG TABLET PO SCH (08:11)
--- NOTE | 2016-11-18 10:08 | EKG Report ---
Stationary ECG Study [facility] ER Test Date: 11/17/2016 2:28:11 AM Pat Name: ARNOL MILLER Department: Room: 270 Gender: M Named Account Executive: : 1950 Requested by: Sonny Rodriguez Order Number: [id number] Reading MD: CALI SEN Intervals [place] Rate: 74 P: 3 NV: 194 QRS: 62 QRSD: 121 T: 16 QT: 402 QTc: 429 Interpretive Statements SINUS RHYTHM MODERATE INTRAVENTRICULAR CONDUCTION DELAY MODERATE T-WAVE ABNORMALITY, CONSIDER ANTEROLATERAL ISCHEMIA Electronically Signed On 11-18-16 20:34:28 CDT by CALI SEN [email or web address]
--- NOTE | 2016-11-18 12:54 | Ultrasound Report ---
Exam: Bilateral carotid Doppler Date: November 18, 2016 at 0824 hours Indication: Carotid bruit Technique: Duplex scan of the bilateral carotid arteries using B-mode/grayscale imaging and Doppler spectral analysis and color flow. Findings: Right Flow velocities centimeters per second Common carotid artery: 87.3 cm/s Proximal ICA: 77.0 cm/s Distal ICA: 84.2 cm/s External carotid artery: 167.0 cm/s Vertebral artery: 46.4 cm/s ICA/CCA ratio: 1.0 Left: Flow velocities centimeters per second Common carotid artery: 94.1 cm/s Proximal ICA: 59.8 cm/s Distal ICA: 139 cm/s External carotid artery: 123 cm/s Vertebral artery: 38.7 cm/s ICA/CCA ratio: 1.5 Mild plaquing at the origins bilaterally. No significant atherosclerotic plaque or luminal stenosis is evident within either internal carotid artery. Color flow is present in all visualized vessels with Doppler analysis. Impression: 1. Atheromatous changes with no high-grade stenosis Today studies were performed utilizing indirect NASCET criteria The ultrasound images were stored and captured PROCEDURE INTERPRETED AT [facility] DEPARTMENT OF RADIOLOGY Final Report Signed by: Matthew Parker
--- NOTE | 2016-11-18 12:58 | Hospitalist Progress Note ---
Assessment and Plan - Time spent with patient Time spent with patient: Less than 30 minutes (1) Dyslipidemia Status: Chronic Assessment and plan: 66-year-old white male with history of gout, CHF, hypertension, chronic neck pain, CAD, seizures, and diabetes admitted by the hospitalist service on 2016 with syncope and elevated troponins. Patient has been seen by cardiology and he has had no further events. Dr. Thacker performed a PCI of the mid LAD with stenting yesterday. His EF is mild to moderately depressed by echo. His medications have been adjusted due to hypertension. Dr. Thacker would like patient discharged on event monitor which can be obtained and placed on patient from [facility] in the a.m. So far his vital signs are stable and he has had no further syncopal episodes or complaints of pain. His labs are relatively normal with blood sugars controlled. Carotid Dopplers show no high-grade stenosis. So far other medical findings for syncope are negative. Patient should be ready for discharge in the morning after event monitor is placed. Patient will need to follow-up with Dr. Thacker in [address] Hendrickson will see and examine patient and further recommendations to follow. Current Visit: Yes (2) Coronary artery disease Status: Acute Current Visit: Yes Qualifiers: Coronary Disease-Associated Artery/Lesion type: [place] artery [place] vs. transplanted heart: [place] heart Associated angina: without angina Qualified Code(s): I25.10 - Atherosclerotic heart disease of [place] coronary artery without angina pectoris (3) CHF (congestive heart failure) Status: Acute Current Visit: Yes (4) Syncope Status: Acute Current Visit: Yes (5) Elevated troponin Status: Acute Current Visit: Yes (6) Hypertension Status: Chronic Current Visit: No (7) Diabetes Status: Chronic Current Visit: No Qualifiers: Diabetes mellitus type: type 2 Hospitalist: Subjective Interval history: Patient feels okay this morning. He has not had any chest pain or syncopal episodes. Exam - Constitutional Vitals: Period Temp Pulse Resp BP Sys/[place] Pulse Ox Last 24 Hr 96.8 F-98.8 F 67-77 16-20 116-159/66-95 95-100 Exam: 66-year-old white male, no acute distress, alert and oriented Chest clear CV regular rate and rhythm Abdomen obese, nontender Extremities with moderate pedal edema Results - Labs CBC & BMP: 11/18/16 02:39 11/18/16 02:39 Lab Results: I have reviewed the past 24 hour labs - EKG EKG results: sinus rhythm - Diagnostic Findings Procedure: CT: report reviewed by me (CT the head shows generalized atrophy, chronic ischemic change, no evidence of acute intracranial injury. CT of the neck show straightening of the normal curvature of the cervical spine that is unchanged from 2010) Quality Measures - VTE Contraindication to Pharmacological VTE Prophylaxis: High Risk of Bleeding
[2016-11-18] MEDS: oxyCODONE/ACETAMINOPHEN 5-325 MG TABLET PO PRN (15:06)
[2016-11-18] MEDS: MIRTAZAPINE 15 MG TABLET PO SCH (21:23)
[2016-11-18] MEDS: ATORVASTATIN 40 MG TABLET PO SCH (21:23)
[2016-11-19] MEDS: PHENYTOIN ER 100 MG CAPSULE PO SCH (08:11)
[2016-11-19] MEDS: amLODIPine 10 MG TABLET PO SCH (08:11)
[2016-11-19] MEDS: GEMFIBROZIL 600 MG TABLET PO SCH (08:11)
[2016-11-19] MEDS: FUROSEMIDE 20 MG TABLET PO SCH (08:11)
[2016-11-19] MEDS: CHLORTHALIDONE 25 MG TABLET PO SCH (08:12)
[2016-11-19] MEDS: PREGABALIN 75 MG CAPSULE PO SCH (08:12)
[2016-11-19] MEDS: PANTOPRAZOLE 40 MG TABLET PO SCH (08:12)
[2016-11-19] MEDS: POTASSIUM CHLORIDE 20 MEQ TABLET PO SCH (08:12)
[2016-11-19] MEDS: CLOPIDOGREL 75 MG TABLET PO SCH (08:12)
[2016-11-19] MEDS: sitaGLIPtin 100 MG TABLET PO SCH (08:12)
[2016-11-19] MEDS: ASPIRIN EC 81 MG TABLET PO SCH (08:12)
[2016-11-19] MEDS: LISINOPRIL 20 MG TABLET PO SCH (08:13)
[2016-11-19] MEDS: METOPROLOL SUCCINATE XL 50 MG TABLET PO SCH (08:13)
[2016-11-19] MEDS: ALLOPURINOL 100 MG TABLET PO SCH (08:14)
--- NOTE | 2016-11-19 09:52 | Discharge Summary ---
Hospital Course - Hospital Course Hospital Course: Mrs. mc is a 66-year-old male who was admitted on 11/17/2016 to the [facility] with complaints of syncope. Initial workup in the emergency room revealed a normal head and C-spine CT; however the troponin was mildly elevated at 0.053. Patient was admitted to the telemetry floor for further workup with neuro checks , serial troponins, echocardiogram, carotid ultrasound. Cardiology was consulted. Echocardiogram revealed left ventricular EF estimated at 55% with grade 1 diastolic dysfunction. Upon consultation, cardiology recommended proceeding with a left heart cath. Patient underwent LHC on 11/17/2016 the following results: 100% occluded left anterior descending artery status post successful PCI with KELLY 1 (2.516 mm Synergy), ischemic cardiomyopathy with decompensated end-diastolic pressure of 21 mmHg. Patient was returned to the telemetry floor in stable condition. Dual antiplatelet therapy should be initiated for minimum of 1 year. Continue DELIA inhibitor, beta blockade and statin while monitoring for complications including dysrhythmia and anemia. Patient is also recommended to undergo cardiac rehabilitation. The remainder of the patient's hospitalization was relatively uncomplicated. At this time, the patient is responsible for from hospitalization and is stable for discharge. Patient will be discharged home with an event monitor. He should follow-up with cardiology in 2 weeks as well as his PCP in 1-2 weeks. - Time spent with patient Time with patient DS: Greater than 30 minutes Specialty Discharge - Follow Up or Referrals Follow up with: Dora Thacker DO [Physician] - 2 Weeks Discharge Plan - Discharge Medications No Action Clopidogrel [Plavix] 1 tablet PO DAILY Allopurinol 1 tablet PO DAILY Potassium Chloride 1 tablet PO DAILY Mirtazapine 1 tablet PO BEDTIME Saxagliptin HCl/Metformin HCl [Kombiglyze Xr 5-1,000 mg Tab] 1 tablet PO DAILY Lisinopril 1 tablet PO BID Zolpidem Tartrate [Ambien] 1 tablet PO BEDTIME PRN PRN Reason: Insomnia Metoprolol Succinate 1 tablet PO DAILY Furosemide Tab [Lasix Tab] 1 tablet PO BID Omeprazole 1 capsule PO DAILY Cyclobenzaprine [Flexeril] 1 tablet PO TID PRN PRN Reason: Muscle Spasm Gemfibrozil 1 tablet PO BID Phenytoin Sodium Extended 3 capsule PO DAILY W/SUPPER Phenytoin Sodium Extended 2 capsule PO DAILY W/BREAKFAST Oxycodone HCl/Acetaminophen [Oxycodone-Acetaminophen 10-325] 1 tablet PO QID PRN PRN Reason: Pain Pregabalin [Lyrica] 1 capsule PO BID Amlodipine Besylate 1 tablet PO DAILY - Follow Up or Referral Follow Up: Dora Thacker DO [Physician] - 2 Weeks - Forms/Instructions Instructions: Chlorthalidone (By mouth), Myocardial Infarction (GEN), Left Heart Catheterization (DC), Heart Healthy Diet (GEN), Coronary Intravascular Stent Placement, Fixed Income Manager (GEN) Exam - Constitutional Vitals: Period Temp Pulse Resp BP Sys/Cordova Pulse Ox Last 24 Hr 97.2 F-98.8 F 68-84 16-20 105-142/53-81 91-97 Discharge Results Procedures and tests throughout hospitalization: Pending Orders 11/17/16 08:09 NE EEG adult awake/drowsy Routine 11/17/16 08:29 CL heart Routine Labs on day of discharge: Labs from last 24 hours 11/19/16 11/18/16 11/18/16 07:57 19:53 15:59 POC Glucose 147 H 262 H 157 H 11/18/16 11:31 POC Glucose 129 H DS: Provider Date of admission: 11/17/16 02:07 Primary care physician: Britni Cummins DO Attending physician on admission: Gagan Griffin MD Consults: 11/17/16 03:26 Consult to Physician [CONS] Routine Comment: elevated troponin Consulting Provider: Naresh Sanford Person Notified: Dr. Thacker Date Notified: 11/17/16 Time Notified: 08:00 Consult Notification Comment: In person, saw pt. 11/17/16 10:29 Consult to Cardiac Rehabilitation [CONS] Routine Reason for Cardiac Rehabilitation: Risk Factor Modification Other Consult Comment: Evaluate and recommend Discharging clinician: Ciro HUI Expected date of discharge: 11/19/16
[2016-11-19 12:05] VITALS: BP 119/68
[2016-11-19] MEDS: oxyCODONE/ACETAMINOPHEN 5-325 MG TABLET PO PRN (12:45)
--- NOTE | 2016-11-19 13:35 | Cardiology Progress Note ---
Winston Steven Lesley, KIMBERLEY, am scribing for, and in the presence of, Alexandra Navarro NP 13:35. Assessment and Plan - Time spent with patient Time spent with patient: Greater than 30 minutes (Record review, assessment, discharge documented) (1) Dyslipidemia Status: Chronic Assessment and plan: SEE PLAN LISTED BELOW Current Visit: Yes (2) Coronary artery disease Status: Chronic Assessment and plan: SEE PLAN LISTED BELOW Current Visit: Yes Qualifiers: Coronary Disease-Associated Artery/Lesion type: ute artery [place] vs. transplanted heart: ute heart Associated angina: without angina Qualified Code(s): I25.10 - Atherosclerotic heart disease of ute coronary artery without angina pectoris (3) History of TIA (transient ischemic attack) Status: Chronic Assessment and plan: SEE PLAN LISTED BELOW Current Visit: Yes (4) PAD (peripheral artery disease) Status: Chronic Assessment and plan: SEE PLAN LISTED BELOW Current Visit: Yes (5) Syncope Status: Chronic Assessment and plan: SEE PLAN LISTED BELOW Current Visit: Yes (6) Elevated troponin Status: Resolved Assessment and plan: SEE PLAN LISTED BELOW Current Visit: Yes (7) Hypertension Status: Chronic Assessment and plan: SEE PLAN LISTED BELOW Current Visit: No (8) Diabetes Status: Chronic Assessment and plan: SEE PLAN LISTED BELOW Current Visit: No Qualifiers: Diabetes mellitus type: type 2 Cardiology - PN: Subj Interval history: QUARTER BACKER: Dr. Claudio Steven, Alexandra Navarro, have personally examined and evaluated patient with HELICOPTER REPAIRER Mehreen Montero as Mrs. Montero is acting as a scribe. 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 He described a previous episode of chest pain that occurred approximately 3 weeks ago. He developed chest heaviness and diaphoresis, and took an extra Prilosec. He described burning in his chest that radiated down the left arm. He received cardiac catheterization with PCI to 100% occluded mid LAD. EF found to be 40% with ischemic cardiomyopathy, decompensated end- diastolic pressure of 21 mmHg. Hospital course has remained uncomplicated. Multiple test to been done to rule out other causes of syncope: Carotid Dopplers revealed atheromatous changes with no high-grade stenosis, Head CT revealed generalized atrophy, chronic ischemic in no acute intracranial injury, cervical spine CT is unchanged compared to 2010 record except for progressive degenerative changes, echocardiogram revealed LVEF 55%, mid to distal anterior wall hypokinesis, moderate concentric left ventricular hypertrophy with grade 1 diastolic dysfunction. The patient will have an EEG this morning prior to discharge. The patient is approved for discharge from a cardiology standpoint, he will be discharged with an event monitor and have a follow-up in 2 weeks at [facility]. The patient will picker/puller the event monitor from [facility] today upon discharge. He will need an EKG, CBC, BMP with mag prior to his follow-up appointment. Discharge meds: ASA 81 mg daily Lipitor 80 mg p.o. nightly Plavix 75 mg p.o. daily Chlorthalidone 25 mg p.o. daily Amlodipine 10 mg a day Lopid 600 mg p.o. twice daily Lisinopril 20 mg p.o. twice daily Metoprolol succinate 50 mg p.o. daily Potassium chloride 20 milliequivalents p.o. daily Exam (Progress Note) - Constitutional Vitals: Period Temp Pulse Resp BP Sys/Cordova Pulse Ox Last 24 Hr 97.2 F-98.8 F 68-84 16-20 105-142/53-81 91-97 Exam: General: Appears well with no apparent distress. Pleasant and cooperative. Appears comfortable. HEENT: PERRL, normocephalic, atraumatic. Mucous membranes moist. No jaundice noted. Conjunctiva moist and clear, sclerae anicteric. Neck: No thyromegaly or lymphadenopathy noted. No carotid bruit appreciated. Cardiac: Regular rate and rhythm. No murmur rub or gallop. Lungs: Clear to auscultation without accessory muscle use to assist the respiratory pattern. Not using oxygen at this time Abdomen: Soft, bowel sounds normoactive. Nontender and nondistended. No abdominal bruit or thrill noted. No masses noted. Musculoskeletal: No fluid collection. Decreased range of motion is noted. Extremities: No clubbing, cyanosis noted. No edema noted. Upper extremity pulses 2+. Lower extremity pulses 2+. Capillary refill less than 3 seconds. Skin: No unusual lesions or rashes. No skin breakdown appreciated. Neuro: Awake, alert and oriented 3. Moves all extremities well without hemiparesis or paralysis. No essential tremor is appreciated. Result/EKG - Labs CBC & BMP: 11/18/16 02:39 11/18/16 02:39 Lab Results: I have reviewed the past 24 hour labs Labs: Laboratory Results - last 24 hr 11/18/16 11/18/16 11/18/16 11:31 15:59 19:53 POC Glucose 129 H 157 H 262 H 11/19/16 07:57 POC Glucose 147 H - Diagnostic Findings Procedure: CT: report reviewed by me, Ultrasound: report reviewed by me - EKG EKG results: interpreted by me, sinus rhythm Quality Measures - VTE Contraindication to Pharmacological VTE Prophylaxis: High Risk of Bleeding Specialty Discharge - Follow Up or Referrals Follow up with: Dora Thacker DO [Physician] - 12/03/16 8:30 am (pt. to go to [facility] today at 11:00 for event monitor, Mayra Estrada aware Will need EKG, CBC, and BMP with Mag prior to appt.) I, Alexandra Navarro NP, personally performed the services described in this documentation, ascribed by Mehreen Montero NP in my presence, and it is both accurate and complete [id number] .
--- NOTE | 2016-11-19 13:50 | Discharge Summary ---
Hospital Course - Hospital Course Hospital Course: Mrs. mc is a 66-year-old male who was admitted on 11/17/2016 to the [facility] with complaints of syncope. Initial workup in the emergency room revealed a normal head and C-spine CT; however the troponin was mildly elevated at 0.053. Patient was admitted to the telemetry floor for further workup with neuro checks , serial troponins, echocardiogram, carotid ultrasound. Cardiology was consulted. Echocardiogram revealed left ventricular EF estimated at 55% with grade 1 diastolic dysfunction. Upon consultation, cardiology recommended proceeding with a left heart cath. Patient underwent LHC on 11/17/2016 the following results: 100% occluded left anterior descending artery status post successful PCI with KELLY 1 (2.516 mm Synergy), ischemic cardiomyopathy with decompensated end-diastolic pressure of 21 mmHg. Patient was returned to the telemetry floor in stable condition. Dual antiplatelet therapy should be initiated for minimum of 1 year. Continue DELIA inhibitor, beta blockade and statin while monitoring for complications including dysrhythmia and anemia. Patient is also recommended to undergo cardiac rehabilitation. The remainder of the patient's hospitalization was relatively uncomplicated. At this time, the patient is responsible for from hospitalization and is stable for discharge. Patient will be discharged home with an event monitor. He should follow-up with cardiology in 2 weeks as well as his PCP in 1-2 weeks. - Time spent with patient Time with patient DS: Greater than 30 minutes Diagnosis - Discharge Diagnosis (1) Syncope Status: Resolved Specialty Discharge - Follow Up or Referrals Follow up with: Dora Thacker DO [Physician] - 12/03/16 8:30 am (pt. to go to [facility] today at 11:00 for event monitor, Mayra Estrada aware Will need EKG, CBC, and BMP with prior to appt.) Discharge Plan - Discharge Data Discharge Diet: low fat, low cholesterol Activity: resume usual activities as tolerated Hygiene: no restrictions Weight Bearing at Discharge: full weight bearing Driving: no restrictions Contact your physician if you experience:: Shortness of breath - Discharge Medications New Aspirin EC Tab 81 mg PO DAILY #30 tablet Atorvastatin [Lipitor] 80 mg PO BEDTIME #30 tablet Clopidogrel [Plavix] 75 mg PO DAILY #30 tablet Chlorthalidone [Hygroton] 25 mg PO DAILY #30 tablet Continue Clopidogrel [Plavix] 1 tablet PO DAILY Allopurinol 1 tablet PO DAILY Potassium Chloride 1 tablet PO DAILY Mirtazapine 1 tablet PO BEDTIME Saxagliptin HCl/Metformin HCl [Kombiglyze Xr 5-1,000 mg Tab] 1 tablet PO DAILY Lisinopril 1 tablet PO BID Zolpidem Tartrate [Ambien] 1 tablet PO BEDTIME PRN PRN Reason: Insomnia Metoprolol Succinate 1 tablet PO DAILY Furosemide Tab [Lasix Tab] 1 tablet PO BID Omeprazole 1 capsule PO DAILY Cyclobenzaprine [Flexeril] 1 tablet PO TID PRN PRN Reason: Muscle Spasm Gemfibrozil 1 tablet PO BID Phenytoin Sodium Extended 3 capsule PO DAILY W/SUPPER Phenytoin Sodium Extended 2 capsule PO DAILY W/BREAKFAST Oxycodone HCl/Acetaminophen [Oxycodone-Acetaminophen 10-325] 1 tablet PO QID PRN PRN Reason: Pain Pregabalin [Lyrica] 1 capsule PO BID Amlodipine Besylate 1 tablet PO DAILY - Follow Up or Referral Follow Up: Dora Thacker DO [Physician] - 12/03/16 8:30 am (pt. to go to [facility] today at 11:00 for event monitor, Mayra Estrada aware Will need EKG, CBC, and BMP with Mag prior to appt.) No PCP,. [Physician] - 1 Week - Forms/Instructions Instructions: Chlorthalidone (By mouth), Myocardial Infarction (GEN), Left Heart Catheterization (DC), Heart Healthy Diet (GEN), Coronary Intravascular Stent Placement, Liquid Fertilizer Servicer (GEN) Exam - Constitutional Vitals: Period Temp Pulse Resp BP Sys/Cordova Pulse Ox Last 24 Hr 97.2 F-98.8 F 68-84 16-20 105-142/53-81 91-97 Exam: General: No Acute Distress HEENT: Normocephalic, atraumatic, Extra ocular movements intact Neck: Supple, No JVD Chest: Clear to auscultation B/L CV: S1 + S2 audible without murmur, gallop or rub Abd: soft, NT, Non-distended, BS + Ext: No edema Skin: No purpura, bruising or rash Rheumatologic: No Joint deformities Neurologic: Strength 5/5 all extremities, no gross sensory deficits Discharge Results Procedures and tests throughout hospitalization: Pending Orders 11/17/16 08:29 CL heart Routine Labs on day of discharge: Labs from last 24 hours 0911/19/16 11/18/16 11:46 07:57 19:53 POC Glucose 133 H 147 H 262 H 11/18/16 15:59 POC Glucose 157 H DS: Provider Date of admission: 11/17/16 02:07 Primary care physician: Britni Cummins DO Attending physician on admission: Gagan Griffin MD Consults: 11/17/16 03:26 Consult to Physician [CONS] Routine Comment: elevated troponin Consulting Provider: Naresh Sanford Person Notified: Dr. Thacker Date Notified: 11/17/16 Time Notified: 08:00 Consult Notification Comment: In person, saw pt. 11/17/16 10:29 Consult to Cardiac Rehabilitation [CONS] Routine Reason for Cardiac Rehabilitation: Risk Factor Modification Other Consult Comment: Evaluate and recommend Discharging clinician: Fabiola Hendrickson MD
== END 2016-11-19 14:53 | disposition home or self-care (01) | DRG 247 ==
LOC: EDUNIT# → EDBD → N.ED 22:34 → N.EDINP 11-17 02:07 → SUATTDRO 11-17 02:07 → N.TELES 11-17 02:28
PROVIDERS: ADMIT Family Medicine; ATTEND Hospitalist
PROC: CLCCHCL (ICD-10-PCS; 2016-11-17 09:15)

== ENCOUNTER 2017-08-04 22:18 | Inpatient (IN) ==
[2017-08-05 01:04] LABS: Alanine Aminotransferase 17 U/L (16-61); Albumin 3.6 G/DL (3.4-5.0); Alkaline Phosphatase 87 U/L (45-117); Aspartate Amino Transferase 15 U/L (0-37); Blood Urea Nitrogen 20 MG/DL (7-18); Glucose 207 MG/DL (74-106); Osmolality,Calculated 281.8 MOS/KG (273-304); Potassium 3.7 MMOL/L (3.5-5.1); Sodium 137 MMOL/L (136-145); Total Protein 7.7 G/DL (6.4-8.3)
[2017-08-05 01:16] LABS: Basophils % 0.5 % (0.0-0.8); Eosinophils # 0.1 10*3/uL (0.0-0.87); Eosinophils % 1.3 % (0.00-10.9); Hematocrit 40.7 VOL% (42.0-52.0); Hemoglobin 14.6 GM/DL (14.0-18.0); Immature Granulocytes % 0.3 %; Immature Granulocytes Absolute 0.02 #; Lymphocytes # 3.2 10*3/uL (1.4-4.0); Lymphocytes % 41.5 % (21.2-54.2); Mean Corpuscular HGB Conc 35.9 GM/DL (32-36); Mean Corpuscular Hemoglobin 31 PG (27-34); Mean Platelet Volume 9.3 FL (9.6-12.0); Monocytes # 0.7 10*3/uL (0.11-0.8); Monocytes % 8.7 % (1.7-12.7); Neutrophils # 3.7 10*3/uL (1.4-7.4); Neutrophils % 47.7 % (38.7-73.9); Platelet Count 215 T/CUMM (130-400); Red Blood Count 4.73 MC/CUMM (3.8-5.5); Red Cell Distribution Width 13.1 % (9.3-17.3); White Blood Count 7.7 T/CUMM (4-12)
[2017-08-05] MEDS ORDERED: ONDANSETRON 4 MG/2 ML VIAL IV PRN (01:37)
[2017-08-05] MEDS ORDERED: MORPHINE 4 MG/1 ML VIAL IV PRN (01:37)
[2017-08-05] MEDS ORDERED: ACETAMINOPHEN 325 MG TABLET PO PRN (01:37)
[2017-08-05] MEDS ORDERED: ALBUTEROL 2.5 MG/3 ML NEB RESP TX PRN (01:40)
[2017-08-05] MEDS ORDERED: CYCLOBENZAPRINE 10 MG TABLET PO PRN (01:40)
[2017-08-05] MEDS ORDERED: ZALEPLON 5 MG CAPSULE PO PRN (01:40)
[2017-08-05] MEDS ORDERED: NITROGLYCERIN SL 0.4 MG TABLET SL PRN (01:43)
[2017-08-05] MEDS: ALBUTEROL/IPRATROPIUM 3 ML NEB RESP TX SCH ×4 (03:13→14:50)
[2017-08-05 05:41] LABS: Risk Ratio 4.11; Thyroid Stimulating Hormone 3.48 uIU/ml (0.358-3.74)
[2017-08-05] MEDS ORDERED: NITROGLYCERIN 2% OINT 1 INCH/GM PACK TOP SCH (06:00)
[2017-08-05 07:17] LABS: Barbiturates Screen,Urine Negative (Negative); Benzodiazepines Screen,Urine Negative (Negative); Cannabinoid Screen,Urine Negative (Negative); Opiate Screen,Urine Positive (Negative); Phencyclidine Screen,Urine Negative (Negative)
[2017-08-05] MEDS ORDERED: HEPARIN/NACL 0.9% 2 UNITS/ML 1,000 ML IV ONE (07:22)
[2017-08-05] MEDS ORDERED: diphenhydrAMINE CAP 50 MG CAPSULE ONE (07:23)
[2017-08-05] MEDS ORDERED: DIAZEPAM 5 MG TABLET ONE (07:23)
[2017-08-05] MEDS ORDERED: diphenhydrAMINE CAP 50 MG CAPSULE PO ONE (07:25)
[2017-08-05] MEDS ORDERED: DIAZEPAM 5 MG TABLET PO ONE (07:25)
[2017-08-05] MEDS ORDERED: SODIUM CHLORIDE 0.45% 1,000 ML IV SCH (07:30)
[2017-08-05] MEDS ORDERED: PHENYTOIN ER 100 MG CAPSULE PO SCH ×2 (08:00→17:00)
[2017-08-05] MEDS ORDERED: sitaGLIPtin 100 MG TABLET PO SCH (08:00)
[2017-08-05] MEDS ORDERED: FUROSEMIDE 20 MG TABLET PO SCH (08:00)
[2017-08-05] MEDS ORDERED: LIDOCAINE 1% 20 ML VIAL ONE (08:09)
[2017-08-05] MEDS ORDERED: MIDAZOLAM 2 MG/2 ML VIAL ONE (08:09)
[2017-08-05] MEDS ORDERED: fentaNYL 100 MCG/2 ML VIAL ONE (08:09)
[2017-08-05] MEDS ORDERED: LISINOPRIL 20 MG TABLET PO SCH (09:00)
[2017-08-05] MEDS ORDERED: POTASSIUM CHLORIDE 20 MEQ TABLET PO SCH (09:00)
[2017-08-05] MEDS ORDERED: PREGABALIN 75 MG CAPSULE PO SCH (09:00)
[2017-08-05] MEDS ORDERED: ENOXAPARIN 40 MG/0.4 ML SYRINGE SUBCUT SCH (09:00)
[2017-08-05] MEDS ORDERED: PANTOPRAZOLE 40 MG TABLET PO SCH (09:00)
[2017-08-05] MEDS ORDERED: METOPROLOL SUCCINATE XL 50 MG TABLET PO SCH (09:00)
[2017-08-05] MEDS ORDERED: ASPIRIN EC 81 MG TABLET PO SCH (09:00)
[2017-08-05] MEDS ORDERED: INSULIN GLARGINE 100 UNIT/ML SUBCUT SCH (09:00)
[2017-08-05] MEDS ORDERED: DOCUSATE SODIUM 100 MG CAPSULE PO SCH (09:00)
[2017-08-05] MEDS ORDERED: amLODIPine 10 MG TABLET PO SCH (09:00)
[2017-08-05] MEDS ORDERED: CLOPIDOGREL 75 MG TABLET PO SCH (09:00)
[2017-08-05] MEDS ORDERED: GEMFIBROZIL 600 MG TABLET PO SCH (09:00)
[2017-08-05] MEDS ORDERED: ALLOPURINOL 100 MG TABLET PO SCH (09:00)
[2017-08-05 15:03] VITALS: BP 121/76
[2017-08-05] MEDS ORDERED: ATORVASTATIN 20 MG TABLET PO SCH (21:00)
[2017-08-06] MEDS ORDERED: EXENATIDE MICROSPHERES SUBCUT SCH (09:00)
== END 2017-08-05 16:18 | disposition home health service (06) | DRG 392 ==
LOC: N.TELES 23:12
PROVIDERS: ADMIT Internal Medicine; ATTEND Internal Medicine
PROC: CLCCHCL (ICD-10-PCS; 2017-08-05 08:15)

== ENCOUNTER 2018-05-04 19:58 | Observation (INO) ==
[2018-05-04] MEDS ORDERED: ONDANSETRON 4 MG/2 ML VIAL IV STA (20:09)
[2018-05-04] MEDS ORDERED: FUROSEMIDE 100 MG/10 ML VIAL IV STA (20:09)
[2018-05-04] MEDS ORDERED: ALBUTEROL/IPRATROPIUM 3 ML NEB RESP TX STA (20:09)
[2018-05-04] MEDS ORDERED: MORPHINE 4 MG/1 ML VIAL IV STA (20:09)
[2018-05-04 20:56] LABS: Basophils % 0.4 % (0.0-0.8); Eosinophils # 0.2 10*3/uL (0.0-0.87); Eosinophils % 2.1 % (0.00-10.9); Hematocrit 43.7 VOL% (42.0-52.0); Hemoglobin 15.2 GM/DL (14.0-18.0); Immature Granulocytes % 0.1 %; Immature Granulocytes Absolute 0.01 #; Lymphocytes # 2.8 10*3/uL (1.4-4.0); Lymphocytes % 39.7 % (21.2-54.2); Mean Corpuscular HGB Conc 34.8 GM/DL (32-36); Mean Corpuscular Hemoglobin 29 PG (27-34); Mean Platelet Volume 9.3 FL (9.6-12.0); Monocytes # 0.5 10*3/uL (0.11-0.8); Monocytes % 7.7 % (1.7-12.7); Neutrophils # 3.5 10*3/uL (1.4-7.4); Platelet Count 253 T/CUMM (130-400); Red Cell Distribution Width 12.5 % (9.3-17.3)
[2018-05-04 20:56] LABS: ABG Base Excess -0.1 MMOL/L (-2.5-2.5); ABG HCO3 24.3 MMOL/L (20-26); ABG Oxygen Saturation 97.7 % (95-100); ABG PCO2 40.9 MM HG (35-48); ABG PH 7.392 (7.35-7.45); Allen Test Positive
[2018-05-04 21:06] LABS: INR 0.9; PT Patient Result 9.9 SECS; Partial Thromboplastin Time 24.7 SECS (0-40)
[2018-05-04 21:20] LABS: Alanine Aminotransferase 18 U/L (16-61); Albumin 3.6 G/DL (3.4-5.0); Alkaline Phosphatase 108 U/L (45-117); Aspartate Amino Transferase 10 U/L (0-37); Bilirubin,Total < 0.39 MG/DL (0.2-1.0); Blood Urea Nitrogen 12 MG/DL (7-18); Glucose 383 MG/DL (74-106); Osmolality,Calculated 283.2 MOS/KG (273-304); Potassium 3.9 MMOL/L (3.5-5.1); Sodium 134 MMOL/L (136-145); Total Protein 8.1 G/DL (6.4-8.3)
[2018-05-04 21:47] LABS: Apearance,Urine CLEAR (Clear); Bilirubin,Urine Negative (Negative); Blood, Urine Small mg/dL (Negative); Glucose,Urine (UA) >=500 mg/dL (Negative); Ketones,Urine Negative (Negative); Nitrite,Urine Negative (Negative); Protein,Urine 100 MG/DL; RBC,Urine 1 /HPF (0-4); Urine Color Yellow (Yellow); Urine Specific Gravity 1.025 (1.001-1.035); Urine Urobilinogen < 2.0 EU/DL (0.2-1.0); WBC,Urine <1 /HPF (0-6)
[2018-05-04] MEDS ORDERED: INSULIN REGULAR 100 UNIT/ML IV STA (22:05)
[2018-05-04] MEDS ORDERED: ONDANSETRON 4 MG/2 ML VIAL IV PRN (23:35)
[2018-05-04] MEDS ORDERED: DEXTROSE 50% 25 GM/50 ML SYRINGE IV PRN (23:35)
[2018-05-04] MEDS ORDERED: GLUCAGON 1 MG VIAL IM PRN (23:35)
[2018-05-05] MEDS: ALBUTEROL/IPRATROPIUM 3 ML NEB RESP TX SCH ×6 (02:42→23:14)
[2018-05-05] MEDS: INSULIN REGULAR 100 UNIT/ML SUBCUT SCH ×4 (02:58→18:00)
[2018-05-05] MEDS: AZITHROMYCIN INJ 250 MG in SODIUM CHLORIDE 0.9% 250 ML IV SCH (02:59)
[2018-05-05 05:57] LABS: Basophils % 0.4 % (0.0-0.8); Eosinophils # 0.2 10*3/uL (0.0-0.87); Eosinophils % 1.7 % (0.00-10.9); Hematocrit 42.8 VOL% (42.0-52.0); Hemoglobin 14.6 GM/DL (14.0-18.0); Immature Granulocytes % 0.4 %; Immature Granulocytes Absolute 0.04 #; Lymphocytes % 28.2 % (21.2-54.2); Mean Corpuscular HGB Conc 34.1 GM/DL (32-36); Mean Corpuscular Hemoglobin 29 PG (27-34); Mean Corpuscular Volume 85.4 FL (87-102); Mean Platelet Volume 9.5 FL (9.6-12.0); Monocytes # 0.9 10*3/uL (0.11-0.8); Neutrophils # 6.6 10*3/uL (1.4-7.4); Neutrophils % 61.3 % (38.7-73.9); Platelet Count 255 T/CUMM (130-400); Red Blood Count 5.01 MC/CUMM (3.8-5.5); Red Cell Distribution Width 12.7 % (9.3-17.3); White Blood Count 10.7 T/CUMM (4-12)
[2018-05-05 06:18] LABS: Calcium 7.8 MG/DL (8.5-10.1); Osmolality,Calculated 278.1 MOS/KG (273-304); Potassium 3.4 MMOL/L (3.5-5.1)
[2018-05-05] MEDS: PANTOPRAZOLE 40 MG TABLET PO SCH (08:30)
[2018-05-05] MEDS: ENOXAPARIN 40 MG/0.4 ML SYRINGE SUBCUT SCH (08:30)
[2018-05-05] MEDS: predniSONE 20 MG TABLET PO SCH (08:30)
[2018-05-05] MEDS: cefTRIAXone 1,000 MG in SYRINGE 1 EACH IV SCH (10:35)
[2018-05-05] MEDS: oxyCODONE/ACETAMINOPHEN 5-325 MG TABLET PO PRN ×2 (12:45→21:52)
[2018-05-05] MEDS ORDERED: CARBOXYMETHYLCELLULOSE 1% OPH SOLN BOTH EYES PRN (17:15)
[2018-05-05] MEDS: MIRTAZAPINE 15 MG TABLET PO SCH (21:45)
[2018-05-05] MEDS: LISINOPRIL 20 MG TABLET PO SCH (21:45)
[2018-05-05] MEDS: INSULIN GLARGINE 100 UNIT/ML SUBCUT SCH (21:45)
[2018-05-05] MEDS: PREGABALIN 100 MG CAPSULE PO SCH (21:46)
[2018-05-05] MEDS: GEMFIBROZIL 600 MG TABLET PO SCH (21:46)
[2018-05-05] MEDS: ATORVASTATIN 20 MG TABLET PO SCH (21:46)
[2018-05-05] MEDS: METOPROLOL SUCCINATE XL 100 MG TABLET PO SCH (21:47)
[2018-05-05] MEDS: ZALEPLON 5 MG CAPSULE PO PRN (21:52)
[2018-05-06] MEDS: INSULIN REGULAR 100 UNIT/ML SUBCUT SCH ×5 (01:00→23:44)
[2018-05-06] MEDS: AZITHROMYCIN INJ 250 MG in SODIUM CHLORIDE 0.9% 250 ML IV SCH (01:01)
[2018-05-06] MEDS: ALBUTEROL/IPRATROPIUM 3 ML NEB RESP TX SCH ×6 (02:50→23:20)
[2018-05-06] MEDS: ENOXAPARIN 40 MG/0.4 ML SYRINGE SUBCUT SCH (09:36)
[2018-05-06] MEDS: MONTELUKAST 10 MG TABLET PO SCH (09:37)
[2018-05-06] MEDS: FUROSEMIDE 20 MG TABLET PO SCH ×2 (09:37→17:34)
[2018-05-06] MEDS: predniSONE 20 MG TABLET PO SCH (09:37)
[2018-05-06] MEDS: PHENYTOIN ER 100 MG CAPSULE PO SCH (09:37)
[2018-05-06] MEDS: LISINOPRIL 20 MG TABLET PO SCH ×2 (09:38→20:47)
[2018-05-06] MEDS: PREGABALIN 100 MG CAPSULE PO SCH ×2 (09:38→20:47)
[2018-05-06] MEDS: POTASSIUM CHLORIDE 20 MEQ TABLET PO SCH (09:38)
[2018-05-06] MEDS: GEMFIBROZIL 600 MG TABLET PO SCH ×2 (09:38→20:47)
[2018-05-06] MEDS: ALLOPURINOL 100 MG TABLET PO SCH (09:38)
[2018-05-06] MEDS: amLODIPine 10 MG TABLET PO SCH (09:38)
[2018-05-06] MEDS: PANTOPRAZOLE 40 MG TABLET PO SCH (09:38)
[2018-05-06] MEDS: CLOPIDOGREL 75 MG TABLET PO SCH (09:38)
[2018-05-06] MEDS: cefTRIAXone 1,000 MG in SYRINGE 1 EACH IV SCH (09:39)
[2018-05-06] MEDS: oxyCODONE/ACETAMINOPHEN 5-325 MG TABLET PO PRN ×2 (14:36→22:11)
[2018-05-06] MEDS ORDERED: PHENYTOIN ER 100 MG CAPSULE PO SCH (17:00)
[2018-05-06] MEDS: ATORVASTATIN 20 MG TABLET PO SCH (20:47)
[2018-05-06] MEDS: MIRTAZAPINE 15 MG TABLET PO SCH (20:47)
[2018-05-06] MEDS: METOPROLOL SUCCINATE XL 100 MG TABLET PO SCH (20:48)
[2018-05-06] MEDS: INSULIN GLARGINE 100 UNIT/ML SUBCUT SCH (20:48)
[2018-05-06] MEDS: ZALEPLON 5 MG CAPSULE PO PRN (22:11)
[2018-05-07] MEDS: AZITHROMYCIN INJ 250 MG in SODIUM CHLORIDE 0.9% 250 ML IV SCH (01:57)
[2018-05-07] MEDS: ALBUTEROL/IPRATROPIUM 3 ML NEB RESP TX SCH ×3 (03:40→10:23)
[2018-05-07] MEDS: INSULIN REGULAR 100 UNIT/ML SUBCUT SCH (05:41)
[2018-05-07] MEDS ORDERED: sitaGLIPtin 100 MG TABLET PO SCH (09:00)
[2018-05-07] MEDS: predniSONE 20 MG TABLET PO SCH (09:03)
[2018-05-07] MEDS: MONTELUKAST 10 MG TABLET PO SCH (09:03)
[2018-05-07] MEDS: ALLOPURINOL 100 MG TABLET PO SCH (09:03)
[2018-05-07] MEDS: LISINOPRIL 20 MG TABLET PO SCH (09:03)
[2018-05-07] MEDS: POTASSIUM CHLORIDE 20 MEQ TABLET PO SCH (09:04)
[2018-05-07] MEDS: PANTOPRAZOLE 40 MG TABLET PO SCH (09:04)
[2018-05-07] MEDS: PREGABALIN 100 MG CAPSULE PO SCH (09:04)
[2018-05-07] MEDS: amLODIPine 10 MG TABLET PO SCH (09:04)
[2018-05-07] MEDS: FUROSEMIDE 20 MG TABLET PO SCH (09:04)
[2018-05-07] MEDS: PHENYTOIN ER 100 MG CAPSULE PO SCH (09:04)
[2018-05-07] MEDS: CLOPIDOGREL 75 MG TABLET PO SCH (09:04)
[2018-05-07] MEDS: GEMFIBROZIL 600 MG TABLET PO SCH (09:04)
[2018-05-07] MEDS: ENOXAPARIN 40 MG/0.4 ML SYRINGE SUBCUT SCH (09:04)
[2018-05-07 11:01] VITALS: BP 157/83
[2018-05-07] MEDS: cefTRIAXone 1,000 MG in SYRINGE 1 EACH IV SCH (11:01)
== END 2018-05-07 13:01 | disposition home or self-care (01) ==
LOC: N.EDINP 19:58 → N.ED 19:58 → N.5E 05-05 00:40
PROVIDERS: ADMIT Internal Medicine; ATTEND Internal Medicine

== ENCOUNTER 2018-10-19 05:46 | Observation (INO) ==
[2018-10-19 06:53] LABS: Basophils % 0.6 % (0.0-0.8); Eosinophils # 0.2 10*3/uL (0.0-0.87); Eosinophils % 3.2 % (0.00-10.9); Hematocrit 45.2 VOL% (42.0-52.0); Hemoglobin 14.8 GM/DL (14.0-18.0); Immature Granulocytes % 0.4 %; Immature Granulocytes Absolute 0.03 #; Lymphocytes # 3.5 10*3/uL (1.4-4.0); Lymphocytes % 49.5 % (21.2-54.2); Mean Corpuscular HGB Conc 32.7 GM/DL (32-36); Mean Corpuscular Volume 89.2 FL (87-102); Mean Platelet Volume 9.8 FL (9.6-12.0); Monocytes % 8.8 % (1.7-12.7); Neutrophils % 37.5 % (38.7-73.9); Platelet Count 210 T/CUMM (130-400); Red Blood Count 5.07 MC/CUMM (3.8-5.5); Red Cell Distribution Width 13.1 % (9.3-17.3); Troponin I < 0.015 NG/ML (0.00-0.045); White Blood Count 7.1 T/CUMM (4-12)
[2018-10-19 07:02] LABS: INR 0.9; PT Patient Result 10.1 SECS (9.6-12.2); Partial Thromboplastin Time 26.8 SECS (20.8-36.0)
[2018-10-19] MEDS ORDERED: NITROGLYCERIN SL 0.4 MG TABLET SL STA (07:20)
[2018-10-19 07:26] LABS: Alanine Aminotransferase 22 U/L (16-61); Albumin 3.5 G/DL (3.4-5.0); Alkaline Phosphatase 96 U/L (45-117); Aspartate Amino Transferase 22 U/L (0-37); Bilirubin,Total < 0.39 MG/DL (0.2-1.0); Blood Urea Nitrogen 14 MG/DL (7-18); Calcium 8.1 MG/DL (8.5-10.1); Glucose 282 MG/DL (74-106); Osmolality,Calculated 287.5 MOS/KG (273-304); Total Protein 7.3 G/DL (6.4-8.3)
[2018-10-19 07:37] LABS: Band Neutrophils 1 % (0-10); Eosinophils 3 % (0-10); Lymphocytes 50 % (20-55); Platelet Estimate Normal; Segmented Neutrophils 41 % (50-85); Total Cells Counted 100
[2018-10-19 07:38] LABS: Anisocytosis Slight; Atypical Lymphocytes Few; Macrocytosis Slight
[2018-10-19] MEDS ORDERED: ALBUTEROL 2.5 MG/3 ML NEB RESP TX PRN (08:42)
[2018-10-19] MEDS ORDERED: ZALEPLON 5 MG CAPSULE PO PRN (08:42)
[2018-10-19] MEDS ORDERED: CYCLOBENZAPRINE 10 MG TABLET PO PRN (08:42)
[2018-10-19] MEDS ORDERED: PROPYLENE GLYCOL BOTH EYES PRN (08:42)
[2018-10-19] MEDS ORDERED: EMPAGLIFLOZIN METFORMIN PO SCH (09:00)
[2018-10-19] MEDS ORDERED: EXENATIDE MICROSPHERES SUBCUT SCH (09:00)
[2018-10-19] MEDS ORDERED: GLUCAGON 1 MG VIAL IM PRN ×2 (09:29→11:40)
[2018-10-19] MEDS ORDERED: DEXTROSE 50% 25 GM/50 ML VIAL IV PRN ×2 (09:29→11:40)
[2018-10-19] MEDS ORDERED: HEPARIN 5,000 UNIT/1 ML VIAL SUBCUT SCH (09:30)
[2018-10-19] MEDS: CLOPIDOGREL 75 MG TABLET PO SCH (10:59)
[2018-10-19] MEDS: MONTELUKAST 10 MG TABLET PO SCH (10:59)
[2018-10-19] MEDS: GEMFIBROZIL 600 MG TABLET PO SCH ×2 (10:59→21:16)
[2018-10-19] MEDS: LISINOPRIL 20 MG TABLET PO SCH ×2 (10:59→21:15)
[2018-10-19] MEDS: POTASSIUM CHLORIDE 20 MEQ TABLET PO SCH (10:59)
[2018-10-19] MEDS: PANTOPRAZOLE 40 MG TABLET PO SCH (11:00)
[2018-10-19] MEDS: amLODIPine 10 MG TABLET PO SCH (11:00)
[2018-10-19] MEDS: ALBUTEROL/IPRATROPIUM 3 ML NEB RESP TX SCH ×4 (11:01→23:58)
[2018-10-19] MEDS: PREGABALIN 100 MG CAPSULE PO SCH ×2 (11:02→21:15)
[2018-10-19] MEDS: FLUTICASONE/SALMETEROL 500-50 DISKUS 14 DOSE INH SCH ×2 (11:10→21:15)
[2018-10-19] MEDS: INSULIN GLARGINE 100 UNIT/ML SUBCUT SCH (11:10)
[2018-10-19] MEDS: ALLOPURINOL 100 MG TABLET PO SCH (11:10)
[2018-10-19] MEDS: INSULIN REGULAR 100 UNIT/ML SUBCUT SCH ×3 (11:56→21:14)
[2018-10-19] MEDS ORDERED: RIVAROXABAN 20 MG TABLET PO ONE (13:24)
[2018-10-19] MEDS ORDERED: oxyCODONE/ACETAMINOPHEN 5-325 MG TABLET PO PRN (13:25)
[2018-10-19] MEDS ORDERED: NITROGLYCERIN SL 0.4 MG TABLET SL ONE (15:48)
[2018-10-19 16:51] LABS: Apearance,Urine CLEAR (Clear); Bilirubin,Urine Negative (Negative); Blood, Urine Small mg/dL (Negative); Glucose,Urine (UA) >=500 mg/dL (Negative); Ketones,Urine Negative (Negative); Nitrite,Urine Negative (Negative); Protein,Urine 100 MG/DL; RBC,Urine 1 /HPF (0-4); Squamous Epithelial Cell,Urine Occasional /HPF (0-10); Urine Color Yellow (Yellow); Urine Specific Gravity 1.026 (1.001-1.035); Urine Urobilinogen < 2.0 EU/DL (0.2-1.0); WBC,Urine 5 /HPF (0-6)
[2018-10-19] MEDS ORDERED: METOPROLOL SUCCINATE XL 100 MG TABLET PO SCH (21:00)
[2018-10-19] MEDS ORDERED: MIRTAZAPINE 15 MG TABLET PO SCH (21:00)
[2018-10-19] MEDS ORDERED: ATORVASTATIN 20 MG TABLET PO SCH (21:00)
[2018-10-20] MEDS: ALBUTEROL/IPRATROPIUM 3 ML NEB RESP TX SCH ×4 (03:54→15:12)
[2018-10-20 05:26] LABS: Basophils % 0.5 % (0.0-0.8); Eosinophils # 0.2 10*3/uL (0.0-0.87); Hematocrit 44.9 VOL% (42.0-52.0); Hemoglobin 14.9 GM/DL (14.0-18.0); Immature Granulocytes % 0.3 %; Immature Granulocytes Absolute 0.02 #; Lymphocytes # 3.6 10*3/uL (1.4-4.0); Lymphocytes % 46.9 % (21.2-54.2); Mean Corpuscular HGB Conc 33.2 GM/DL (32-36); Mean Corpuscular Volume 88.6 FL (87-102); Mean Platelet Volume 9.7 FL (9.6-12.0); Monocytes % 8.6 % (1.7-12.7); Neutrophils % 40.7 % (38.7-73.9); Platelet Count 211 T/CUMM (130-400); Red Blood Count 5.07 MC/CUMM (3.8-5.5); Red Cell Distribution Width 13.3 % (9.3-17.3); White Blood Count 7.7 T/CUMM (4-12)
[2018-10-20 06:08] LABS: Alanine Aminotransferase 17 U/L (16-61); Albumin 3.2 G/DL (3.4-5.0); Alkaline Phosphatase 68 U/L (45-117); Aspartate Amino Transferase 14 U/L (0-37); Bilirubin,Total < 0.39 MG/DL (0.2-1.0); Blood Urea Nitrogen 13 MG/DL (7-18); Glucose 161 MG/DL (74-106); Osmolality,Calculated 279.5 MOS/KG (273-304); Total Protein 7.2 G/DL (6.4-8.3)
[2018-10-20 06:37] LABS: Risk Ratio 4.53; Uric Acid 3.5 MG/DL (3.5-7.2); VLDL CHOLESTEROL 91.4 MG/DL
[2018-10-20] MEDS ORDERED: RIVAROXABAN 20 MG TABLET PO SCH (08:00)
[2018-10-20] MEDS ORDERED: PHENYTOIN ER 100 MG CAPSULE PO SCH (08:00)
[2018-10-20] MEDS ORDERED: CALCIUM (CARBONATE)/VITAMIN D 500 MG-200 UNIT TABLET PO SCH (09:00)
[2018-10-20] MEDS: INSULIN GLARGINE 100 UNIT/ML SUBCUT SCH (09:04)
[2018-10-20] MEDS: INSULIN REGULAR 100 UNIT/ML SUBCUT SCH ×2 (09:04→12:56)
[2018-10-20] MEDS: CLOPIDOGREL 75 MG TABLET PO SCH (09:05)
[2018-10-20] MEDS: MONTELUKAST 10 MG TABLET PO SCH (09:05)
[2018-10-20] MEDS: PANTOPRAZOLE 40 MG TABLET PO SCH (09:06)
[2018-10-20] MEDS: LISINOPRIL 20 MG TABLET PO SCH (09:06)
[2018-10-20] MEDS: PREGABALIN 100 MG CAPSULE PO SCH (09:06)
[2018-10-20] MEDS: GEMFIBROZIL 600 MG TABLET PO SCH (09:06)
[2018-10-20] MEDS: ALLOPURINOL 100 MG TABLET PO SCH (09:06)
[2018-10-20] MEDS: amLODIPine 10 MG TABLET PO SCH (09:06)
[2018-10-20] MEDS: POTASSIUM CHLORIDE 20 MEQ TABLET PO SCH (09:06)
[2018-10-20] MEDS: FLUTICASONE/SALMETEROL 500-50 DISKUS 14 DOSE INH SCH (09:07)
[2018-10-20 11:58] VITALS: BP 159/84
== END 2018-10-20 17:30 | disposition home or self-care (01) ==
LOC: EDBD → EDUNIT# → N.EDINP 05:46 → N.ED 05:46 → N.TELEN 09:43
PROVIDERS: ADMIT Internal Medicine; ATTEND Internal Medicine

== ENCOUNTER 2018-12-17 10:48 | Observation (INO) ==
[2018-12-17 11:45] LABS: Basophils % 0.4 % (0.0-0.8); Eosinophils # 0.3 10*3/uL (0.0-0.87); Eosinophils % 3.4 % (0.00-10.9); Hematocrit 44.8 VOL% (42.0-52.0); Hemoglobin 15.2 GM/DL (14.0-18.0); Immature Granulocytes % 0.3 %; Immature Granulocytes Absolute 0.02 #; Lymphocytes # 2.3 10*3/uL (1.4-4.0); Lymphocytes % 30.5 % (21.2-54.2); Mean Corpuscular HGB Conc 33.9 GM/DL (32-36); Mean Corpuscular Volume 87.2 FL (87-102); Mean Platelet Volume 9.3 FL (9.6-12.0); Monocytes % 7.3 % (1.7-12.7); Neutrophils % 58.1 % (38.7-73.9); Platelet Count 235 T/CUMM (130-400); Red Blood Count 5.14 MC/CUMM (3.8-5.5); White Blood Count 7.6 T/CUMM (4-12)
[2018-12-17 11:54] LABS: INR 0.9; PT Patient Result 9.7 SECS (9.6-12.2); Partial Thromboplastin Time 26.5 SECS (20.8-36.0)
[2018-12-17 12:21] LABS: Alanine Aminotransferase 25 U/L (16-61); Albumin 3.6 G/DL (3.4-5.0); Alkaline Phosphatase 96 U/L (45-117); Aspartate Amino Transferase 21 U/L (0-37); Bilirubin,Total < 0.39 MG/DL (0.2-1.0); Blood Urea Nitrogen 17 MG/DL (7-18); Calcium 8.1 MG/DL (8.5-10.1); Estimated Glom Filtration Rate 69 ML/MIN; Glucose 295 MG/DL (74-106); Total Protein 7.8 G/DL (6.4-8.3)
[2018-12-17 12:33] LABS: Apearance,Urine CLEAR (Clear); Bilirubin,Urine Negative (Negative); Blood, Urine Small mg/dL (Negative); Glucose,Urine (UA) >=500 mg/dL (Negative); Ketones,Urine Negative (Negative); Nitrite,Urine Negative (Negative); Protein,Urine Negative; RBC,Urine 4 /HPF (0-4); Urine Color Straw (Yellow); Urine Specific Gravity 1.018 (1.001-1.035); Urine Urobilinogen < 2.0 EU/DL (0.2-1.0); WBC,Urine 1 /HPF (0-6)
[2018-12-17 13:01] LABS: Barbiturates Screen,Urine Negative (Negative); Benzodiazepines Screen,Urine Negative (Negative); Cannabinoid Screen,Urine Negative (Negative); Opiate Screen,Urine Negative (Negative); Phencyclidine Screen,Urine Negative (Negative)
[2018-12-17] MEDS ORDERED: ACETAMINOPHEN 325 MG TABLET PO PRN (14:21)
[2018-12-17] MEDS ORDERED: GLUCAGON 1 MG VIAL IM PRN (14:21)
[2018-12-17] MEDS ORDERED: DEXTROSE 50% 25 GM/50 ML VIAL IV PRN (14:21)
[2018-12-17] MEDS ORDERED: ONDANSETRON 4 MG/2 ML VIAL IV PRN (14:21)
[2018-12-17] MEDS: SODIUM CHLORIDE 0.9% 1,000 ML IV SCH ×2 (15:11→23:38)
[2018-12-17] MEDS: INSULIN LISPRO 100 UNIT/ML SUBCUT SCH ×3 (17:01→21:27)
[2018-12-17] MEDS ORDERED: CYCLOBENZAPRINE 10 MG TABLET PO PRN (18:52)
[2018-12-17] MEDS ORDERED: ZALEPLON 5 MG CAPSULE PO PRN (18:52)
[2018-12-17] MEDS ORDERED: ALBUTEROL/IPRATROPIUM 3 ML NEB RESP TX PRN (18:59)
[2018-12-17] MEDS: ALBUTEROL/IPRATROPIUM 3 ML NEB RESP TX SCH (19:50)
[2018-12-17] MEDS: oxyCODONE/ACETAMINOPHEN 5-325 MG TABLET PO SCH (20:54)
[2018-12-17] MEDS: ATORVASTATIN 20 MG TABLET PO SCH (20:54)
[2018-12-17] MEDS: GEMFIBROZIL 600 MG TABLET PO SCH (20:55)
[2018-12-17] MEDS: METOPROLOL SUCCINATE XL 100 MG TABLET PO SCH (20:55)
[2018-12-17] MEDS: DOCUSATE SODIUM 100 MG CAPSULE PO SCH (20:55)
[2018-12-17] MEDS: PREGABALIN 100 MG CAPSULE PO SCH (20:55)
[2018-12-17] MEDS: BUDESONIDE/FORMOTEROL 160-4.5 INHALER 6 GM INH SCH (20:55)
[2018-12-17] MEDS: AMIODARONE 200 MG TABLET PO SCH (20:55)
[2018-12-17] MEDS: INSULIN GLARGINE 100 UNIT/ML SUBCUT SCH (20:59)
[2018-12-17] MEDS: LISINOPRIL 20 MG TABLET PO SCH (21:27)
[2018-12-17] MEDS: LATANOPROST 0.005% OPH SOLN 2.5 ML BOTTLE BOTH EYES SCH (21:27)
[2018-12-17] MEDS: CARBOXYMETHYLCELLULOSE 1% OPH SOLN BOTH EYES SCH (21:27)
[2018-12-17] MEDS: MIRTAZAPINE 30 MG TABLET PO SCH (23:36)
[2018-12-18 04:31] LABS: Basophils % 0.4 % (0.0-0.8); Eosinophils # 0.3 10*3/uL (0.0-0.87); Eosinophils % 3.4 % (0.00-10.9); Hematocrit 42.1 VOL% (42.0-52.0); Immature Granulocytes % 0.4 %; Immature Granulocytes Absolute 0.03 #; Lymphocytes # 2.9 10*3/uL (1.4-4.0); Lymphocytes % 36.4 % (21.2-54.2); Mean Corpuscular HGB Conc 33.3 GM/DL (32-36); Mean Corpuscular Volume 88.3 FL (87-102); Mean Platelet Volume 9.3 FL (9.6-12.0); Monocytes % 8.1 % (1.7-12.7); Neutrophils % 51.3 % (38.7-73.9); Platelet Count 223 T/CUMM (130-400); Red Blood Count 4.77 MC/CUMM (3.8-5.5); Red Cell Distribution Width 13.2 % (9.3-17.3)
[2018-12-18 04:59] LABS: Albumin 3.1 G/DL (3.4-5.0); Bilirubin,Total 0.5 MG/DL (0.2-1.0); Calcium 7.8 MG/DL (8.5-10.1); Risk Ratio 5.67; Thyroid Stimulating Hormone 2.32 uIU/ml (0.358-3.74); Uric Acid 3.2 MG/DL (3.5-7.2); VLDL CHOLESTEROL 139.4 MG/DL
[2018-12-18] MEDS: LEVOTHYROXINE 25 MCG TABLET PO SCH (06:13)
[2018-12-18] MEDS: SODIUM CHLORIDE 0.9% 1,000 ML IV SCH ×2 (07:34→15:49)
[2018-12-18] MEDS: ALBUTEROL/IPRATROPIUM 3 ML NEB RESP TX SCH ×2 (07:50→19:47)
[2018-12-18] MEDS: BUDESONIDE/FORMOTEROL 160-4.5 INHALER 6 GM INH SCH ×2 (08:47→20:20)
[2018-12-18] MEDS: INSULIN LISPRO 100 UNIT/ML SUBCUT SCH ×4 (08:47→20:21)
[2018-12-18] MEDS: ALLOPURINOL 100 MG TABLET PO SCH (08:47)
[2018-12-18] MEDS: CALCIUM (CARBONATE)/VITAMIN D 500 MG-200 UNIT TABLET PO SCH (08:47)
[2018-12-18] MEDS: LISINOPRIL 20 MG TABLET PO SCH ×2 (08:47→20:18)
[2018-12-18] MEDS: CLOPIDOGREL 75 MG TABLET PO SCH (08:47)
[2018-12-18] MEDS: GEMFIBROZIL 600 MG TABLET PO SCH ×2 (08:47→20:19)
[2018-12-18] MEDS: FUROSEMIDE 20 MG TABLET PO SCH ×2 (08:47→16:36)
[2018-12-18] MEDS: PANTOPRAZOLE 40 MG TABLET PO SCH (08:48)
[2018-12-18] MEDS: DOCUSATE SODIUM 100 MG CAPSULE PO SCH ×2 (08:48→20:20)
[2018-12-18] MEDS: oxyCODONE/ACETAMINOPHEN 5-325 MG TABLET PO SCH ×3 (08:48→20:20)
[2018-12-18] MEDS: AMIODARONE 200 MG TABLET PO SCH ×2 (08:48→20:20)
[2018-12-18] MEDS: POTASSIUM CHLORIDE 20 MEQ TABLET PO SCH (08:48)
[2018-12-18] MEDS: amLODIPine 10 MG TABLET PO SCH (08:48)
[2018-12-18] MEDS: PREGABALIN 100 MG CAPSULE PO SCH ×2 (08:48→20:20)
[2018-12-18] MEDS: RIVAROXABAN 20 MG TABLET PO SCH (08:48)
[2018-12-18] MEDS ORDERED: FLUTICASONE 50 MCG NASAL SPRAY 16 GM BOTTLE BOTH NARES SCH (09:00)
[2018-12-18] MEDS: PREGABALIN 25 MG CAPSULE PO SCH (09:19)
[2018-12-18] MEDS: INSULIN GLARGINE 100 UNIT/ML SUBCUT SCH (20:17)
[2018-12-18] MEDS: MIRTAZAPINE 30 MG TABLET PO SCH (20:18)
[2018-12-18] MEDS: METOPROLOL SUCCINATE XL 100 MG TABLET PO SCH (20:20)
[2018-12-18] MEDS: ATORVASTATIN 20 MG TABLET PO SCH (20:20)
[2018-12-18] MEDS: LATANOPROST 0.005% OPH SOLN 2.5 ML BOTTLE BOTH EYES SCH (20:20)
[2018-12-18] MEDS: CARBOXYMETHYLCELLULOSE 1% OPH SOLN BOTH EYES SCH (20:20)
[2018-12-19] MEDS: SODIUM CHLORIDE 0.9% 1,000 ML IV SCH ×4 (01:58→16:24)
[2018-12-19 06:00] LABS: Basophils % 0.6 % (0.0-0.8); Eosinophils # 0.2 10*3/uL (0.0-0.87); Eosinophils % 3.4 % (0.00-10.9); Hematocrit 39.9 VOL% (42.0-52.0); Hemoglobin 13.4 GM/DL (14.0-18.0); Immature Granulocytes % 0.1 %; Immature Granulocytes Absolute 0.01 #; Lymphocytes # 2.9 10*3/uL (1.4-4.0); Lymphocytes % 40.6 % (21.2-54.2); Mean Corpuscular HGB Conc 33.6 GM/DL (32-36); Mean Corpuscular Volume 87.9 FL (87-102); Mean Platelet Volume 9.5 FL (9.6-12.0); Monocytes % 7.6 % (1.7-12.7); Neutrophils % 47.7 % (38.7-73.9); Platelet Count 188 T/CUMM (130-400); Red Blood Count 4.54 MC/CUMM (3.8-5.5); Red Cell Distribution Width 13.2 % (9.3-17.3); White Blood Count 7.1 T/CUMM (4-12)
[2018-12-19 06:09] LABS: Calcium 7.4 MG/DL (8.5-10.1); Osmolality,Calculated 287.8 MOS/KG (273-304)
[2018-12-19] MEDS: AMIODARONE 200 MG TABLET PO SCH ×2 (07:48→21:09)
[2018-12-19] MEDS: ALBUTEROL/IPRATROPIUM 3 ML NEB RESP TX SCH ×2 (07:54→19:45)
[2018-12-19] MEDS: PANTOPRAZOLE 40 MG TABLET PO SCH (08:20)
[2018-12-19] MEDS: CALCIUM (CARBONATE)/VITAMIN D 500 MG-200 UNIT TABLET PO SCH (08:20)
[2018-12-19] MEDS: DOCUSATE SODIUM 100 MG CAPSULE PO SCH ×2 (08:20→21:09)
[2018-12-19] MEDS: FUROSEMIDE 20 MG TABLET PO SCH ×2 (08:21→17:28)
[2018-12-19] MEDS: LEVOTHYROXINE 25 MCG TABLET PO SCH (08:21)
[2018-12-19] MEDS: LISINOPRIL 20 MG TABLET PO SCH ×2 (08:21→21:07)
[2018-12-19] MEDS: oxyCODONE/ACETAMINOPHEN 5-325 MG TABLET PO SCH ×3 (08:22→21:07)
[2018-12-19] MEDS: PREGABALIN 100 MG CAPSULE PO SCH ×2 (08:23→21:08)
[2018-12-19] MEDS: GEMFIBROZIL 600 MG TABLET PO SCH ×2 (08:23→21:08)
[2018-12-19] MEDS: ALLOPURINOL 100 MG TABLET PO SCH (08:23)
[2018-12-19] MEDS: CLOPIDOGREL 75 MG TABLET PO SCH (08:24)
[2018-12-19] MEDS: POTASSIUM CHLORIDE 20 MEQ TABLET PO SCH (08:24)
[2018-12-19] MEDS: amLODIPine 10 MG TABLET PO SCH (08:24)
[2018-12-19] MEDS: RIVAROXABAN 20 MG TABLET PO SCH (08:24)
[2018-12-19] MEDS: BUDESONIDE/FORMOTEROL 160-4.5 INHALER 6 GM INH SCH ×2 (08:27→21:00)
[2018-12-19] MEDS: INSULIN LISPRO 100 UNIT/ML SUBCUT SCH ×4 (09:50→22:21)
[2018-12-19] MEDS: PREGABALIN 25 MG CAPSULE PO SCH (09:51)
[2018-12-19 18:06] LABS: Apearance,Urine CLEAR (Clear); Bilirubin,Urine Negative (Negative); Blood, Urine Small mg/dL (Negative); Glucose,Urine (UA) >=500 mg/dL (Negative); Ketones,Urine Negative (Negative); Mucus,Urine Occasional /LPF (Occasional); Nitrite,Urine Negative (Negative); Protein,Urine Negative; RBC,Urine 15 /HPF (0-4); Urine Color Straw (Yellow); Urine Specific Gravity 1.011 (1.001-1.035); Urine Urobilinogen < 2.0 EU/DL (0.2-1.0); WBC,Urine <1 /HPF (0-6)
[2018-12-19] MEDS: LATANOPROST 0.005% OPH SOLN 2.5 ML BOTTLE BOTH EYES SCH (21:00)
[2018-12-19] MEDS: CARBOXYMETHYLCELLULOSE 1% OPH SOLN BOTH EYES SCH (21:00)
[2018-12-19] MEDS: MIRTAZAPINE 30 MG TABLET PO SCH (21:07)
[2018-12-19] MEDS: METOPROLOL SUCCINATE XL 100 MG TABLET PO SCH (21:09)
[2018-12-19] MEDS: ATORVASTATIN 20 MG TABLET PO SCH (21:09)
[2018-12-19] MEDS: INSULIN GLARGINE 100 UNIT/ML SUBCUT SCH (22:22)
[2018-12-20] MEDS: SODIUM CHLORIDE 0.9% 1,000 ML IV SCH ×2 (01:45→08:54)
[2018-12-20 04:48] LABS: Basophils % 0.4 % (0.0-0.8); Eosinophils # 0.3 10*3/uL (0.0-0.87); Eosinophils % 3.4 % (0.00-10.9); Hematocrit 40.7 VOL% (42.0-52.0); Hemoglobin 13.5 GM/DL (14.0-18.0); Immature Granulocytes % 0.4 %; Immature Granulocytes Absolute 0.03 #; Lymphocytes # 3.1 10*3/uL (1.4-4.0); Lymphocytes % 39.6 % (21.2-54.2); Mean Corpuscular HGB Conc 33.2 GM/DL (32-36); Mean Corpuscular Volume 88.1 FL (87-102); Mean Platelet Volume 9.6 FL (9.6-12.0); Monocytes % 8.9 % (1.7-12.7); Neutrophils % 47.3 % (38.7-73.9); Platelet Count 193 T/CUMM (130-400); Red Blood Count 4.62 MC/CUMM (3.8-5.5); Red Cell Distribution Width 13.3 % (9.3-17.3); White Blood Count 7.7 T/CUMM (4-12)
[2018-12-20 05:05] LABS: Calcium 7.4 MG/DL (8.5-10.1); Osmolality,Calculated 286.8 MOS/KG (273-304)
[2018-12-20] MEDS: LEVOTHYROXINE 25 MCG TABLET PO SCH (06:22)
[2018-12-20] MEDS: ALBUTEROL/IPRATROPIUM 3 ML NEB RESP TX SCH (07:25)
[2018-12-20] MEDS: LISINOPRIL 20 MG TABLET PO SCH (08:48)
[2018-12-20] MEDS: PREGABALIN 100 MG CAPSULE PO SCH (08:49)
[2018-12-20] MEDS: oxyCODONE/ACETAMINOPHEN 5-325 MG TABLET PO SCH (08:49)
[2018-12-20] MEDS: AMIODARONE 200 MG TABLET PO SCH (08:50)
[2018-12-20] MEDS: FUROSEMIDE 20 MG TABLET PO SCH (08:50)
[2018-12-20] MEDS: RIVAROXABAN 20 MG TABLET PO SCH (08:51)
[2018-12-20] MEDS: ALLOPURINOL 100 MG TABLET PO SCH (08:51)
[2018-12-20] MEDS: POTASSIUM CHLORIDE 20 MEQ TABLET PO SCH (08:51)
[2018-12-20] MEDS: GEMFIBROZIL 600 MG TABLET PO SCH (08:52)
[2018-12-20] MEDS: PREGABALIN 25 MG CAPSULE PO SCH (08:52)
[2018-12-20] MEDS: PANTOPRAZOLE 40 MG TABLET PO SCH (08:52)
[2018-12-20] MEDS: amLODIPine 10 MG TABLET PO SCH (08:52)
[2018-12-20] MEDS: CLOPIDOGREL 75 MG TABLET PO SCH (08:53)
[2018-12-20] MEDS: DOCUSATE SODIUM 100 MG CAPSULE PO SCH (08:53)
[2018-12-20] MEDS: INSULIN LISPRO 100 UNIT/ML SUBCUT SCH ×2 (08:55→11:45)
[2018-12-20] MEDS: BUDESONIDE/FORMOTEROL 160-4.5 INHALER 6 GM INH SCH (08:59)
[2018-12-20] MEDS: CALCIUM (CARBONATE)/VITAMIN D 500 MG-200 UNIT TABLET PO SCH (09:00)
[2018-12-20 12:13] VITALS: BP 157/72
[2018-12-24] MEDS ORDERED: Exenatide Microspheres [Bydureon] 2 MG SUBCUT SCH (09:00)
== END 2018-12-20 14:45 | disposition home health service (06) ==
LOC: EDBD → EDUNIT# → N.ED 10:48 → SUPCPDRO 13:47 → INTOOBSV 13:47 → N.EDINP 13:47 → N.4E 14:08
PROVIDERS: ADMIT Internal Medicine; ATTEND Family Medicine

== ENCOUNTER 2020-08-25 05:12 | Inpatient (IN) ==
[2020-08-25] MEDS ORDERED: MORPHINE 4 MG/1 ML VIAL IV STA (05:32)
[2020-08-25] MEDS ORDERED: ALUM/MAG/SIMETH/LIDO VISC 1:1 30 ML BOTTLE PO STA (05:32)
[2020-08-25] MEDS ORDERED: ASPIRIN 325 MG TABLET PO STA (05:32)
[2020-08-25] MEDS ORDERED: ONDANSETRON 4 MG/2 ML VIAL IV STA (05:32)
[2020-08-25] MEDS ORDERED: NITROGLYCERIN 2% OINT 1 INCH/GM PACK TOP STA (05:32)
[2020-08-25 05:40] LABS: Basophils % 0.6 % (0.0-0.8); Eosinophils # 0.2 10*3/uL (0.0-0.87); Eosinophils % 3.3 % (0.00-10.9); Hemoglobin 14.4 GM/DL (14.0-18.0); Immature Granulocytes % 0.2 %; Immature Granulocytes Absolute 0.01 #; Lymphocytes # 2.4 10*3/uL (1.4-4.0); Lymphocytes % 37.4 % (21.2-54.2); Mean Corpuscular HGB Conc 35.1 GM/DL (32-36); Mean Corpuscular Volume 82.8 FL (87-102); Mean Platelet Volume 9.7 FL (9.6-12.0); Monocytes % 7.7 % (1.7-12.7); Neutrophils % 50.8 % (38.7-73.9); Platelet Count 174 T/CUMM (130-400); Red Blood Count 4.95 MC/CUMM (3.8-5.5); Red Cell Distribution Width 13.2 % (9.3-17.3); White Blood Count 6.4 T/CUMM (4-12)
[2020-08-25 05:51] LABS: INR 1.3; PT Patient Result 14.4 SECS (10.5-12.0)
[2020-08-25 06:01] LABS: Albumin 3.4 G/DL (3.4-5.0); Bilirubin,Total 0.4 MG/DL (0.2-1.0); Osmolality,Calculated 282.4 MOS/KG (273-304); Total Protein 7.6 G/DL (6.4-8.2)
[2020-08-25] MEDS ORDERED: FUROSEMIDE 40 MG/4 ML VIAL IV STA (06:39)
[2020-08-25] MEDS ORDERED: ACETAMINOPHEN 325 MG TABLET PO PRN (07:23)
[2020-08-25] MEDS: PANTOPRAZOLE 40 MG TABLET PO SCH (09:00)
[2020-08-25] MEDS: DOCUSATE SODIUM 100 MG CAPSULE PO SCH ×2 (09:00→21:47)
[2020-08-25] MEDS: oxyCODONE/ACETAMINOPHEN 5-325 MG TABLET PO PRN ×2 (11:45→21:55)
[2020-08-25] MEDS ORDERED: GLUCAGON 1 MG VIAL IM PRN ×2 (13:23→13:39)
[2020-08-25] MEDS ORDERED: DEXTROSE 50% 25 GM/50 ML VIAL IV PRN ×2 (13:23→13:39)
[2020-08-25] MEDS: carvediloL 12.5 MG TABLET PO SCH ×2 (16:13→21:47)
[2020-08-25] MEDS: FUROSEMIDE 40 MG/4 ML VIAL IV SCH (16:13)
[2020-08-25] MEDS: gemfibroziL 600 MG TABLET PO SCH (16:13)
[2020-08-25] MEDS: INSULIN REGULAR 100 UNIT/ML SUBCUT SCH ×2 (16:29→21:45)
[2020-08-25] MEDS ORDERED: PREGABALIN 25 MG CAPSULE PO SCH (17:40)
[2020-08-25] MEDS ORDERED: lisinopriL 20 MG TABLET PO SCH (17:40)
[2020-08-25] MEDS ORDERED: PANTOPRAZOLE 40 MG TABLET PO SCH (17:40)
[2020-08-25] MEDS ORDERED: CLOPIDOGREL 75 MG TABLET PO SCH (17:40)
[2020-08-25] MEDS ORDERED: ASPIRIN EC 81 MG TABLET PO SCH (17:40)
[2020-08-25] MEDS ORDERED: ROSUVASTATIN 20 MG TABLET PO SCH (17:40)
[2020-08-25] MEDS ORDERED: gemfibroziL 600 MG TABLET PO SCH (17:40)
[2020-08-25] MEDS: BUDESONIDE/FORMOTEROL 160-4.5 INHALER 6 GM INH SCH ×2 (18:56→21:50)
[2020-08-25] MEDS: KETOCONAZOLE 2% CREAM 30 GM TUBE TOP SCH (18:56)
[2020-08-25] MEDS: FLUTICASONE 50 MCG NASAL SPRAY 16 GM BOTTLE BOTH NARES SCH (18:57)
[2020-08-25] MEDS: ALBUTEROL 0.63 MG/3 ML NEB RESP TX SCH (19:03)
[2020-08-25] MEDS: POTASSIUM CHLORIDE 20 MEQ TABLET PO SCH ×2 (19:06→21:55)
[2020-08-25] MEDS: CARBIDOPA/LEVODOPA 25-100 MG TABLET PO SCH (19:07)
[2020-08-25] MEDS: PYRIDOXINE 50 MG TABLET PO SCH (19:07)
[2020-08-25] MEDS: allopurinoL 100 MG TABLET PO SCH (19:07)
[2020-08-25] MEDS: ALBUTEROL/IPRATROPIUM 3 ML NEB RESP TX SCH (19:07)
[2020-08-25] MEDS ORDERED: LOTION (LUBRIDERM) 177 ML BOTTLE TOP SCH (21:00)
[2020-08-25] MEDS ORDERED: TERAZOSIN 1 MG CAPSULE PO SCH (21:00)
[2020-08-25] MEDS ORDERED: ATORVASTATIN 20 MG TABLET PO SCH (21:00)
[2020-08-25] MEDS ORDERED: INSULIN GLARGINE 100 UNIT/ML SUBCUT SCH (21:00)
[2020-08-25] MEDS: PREGABALIN 100 MG CAPSULE PO SCH (21:46)
[2020-08-25] MEDS: MIRTAZAPINE 15 MG TABLET PO SCH (21:46)
[2020-08-25] MEDS: PREGABALIN 25 MG CAPSULE PO SCH (21:47)
[2020-08-25] MEDS: ROSUVASTATIN 20 MG TABLET PO SCH (21:47)
[2020-08-25] MEDS: lisinopriL 20 MG TABLET PO SCH (21:47)
[2020-08-25] MEDS: LOTION (KERI) 236 ML BOTTLE TOP SCH (21:49)
[2020-08-25] MEDS: LATANOPROST 0.005% OPH SOLN 2.5 ML BOTTLE BOTH EYES SCH (21:55)
[2020-08-26] MEDS: ALBUTEROL 0.63 MG/3 ML NEB RESP TX SCH ×4 (01:08→19:29)
[2020-08-26 04:58] LABS: Basophils % 0.3 % (0.0-0.8); Eosinophils # 0.3 10*3/uL (0.0-0.87); Eosinophils % 3.5 % (0.00-10.9); Hematocrit 41.4 VOL% (42.0-52.0); Hemoglobin 13.8 GM/DL (14.0-18.0); Immature Granulocytes % 0.3 %; Immature Granulocytes Absolute 0.03 #; Lymphocytes # 2.7 10*3/uL (1.4-4.0); Lymphocytes % 31.5 % (21.2-54.2); Mean Corpuscular HGB Conc 33.3 GM/DL (32-36); Mean Platelet Volume 9.7 FL (9.6-12.0); Monocytes % 8.1 % (1.7-12.7); Neutrophils % 56.3 % (38.7-73.9); Platelet Count 198 T/CUMM (130-400); Red Blood Count 4.87 MC/CUMM (3.8-5.5); Red Cell Distribution Width 13.2 % (9.3-17.3); White Blood Count 8.6 T/CUMM (4-12)
[2020-08-26 05:32] LABS: Osmolality,Calculated 279.7 MOS/KG (273-304); Osmolality,Calculated 281.5 MOS/KG (273-304); Potassium 3.5 MMOL/L (3.5-5.1); Potassium 3.6 MMOL/L (3.5-5.1)
[2020-08-26] MEDS: LEVOTHYROXINE 50 MCG TABLET PO SCH (06:19)
[2020-08-26] MEDS ORDERED: LEVOTHYROXINE 25 MCG TABLET PO SCH (07:00)
[2020-08-26] MEDS: ALBUTEROL/IPRATROPIUM 3 ML NEB RESP TX SCH (07:47)
[2020-08-26] MEDS ORDERED: GLIMEPIRIDE 2 MG TABLET PO SCH (08:00)
[2020-08-26] MEDS ORDERED: NEBIVOLOL 10 MG TABLET PO SCH (09:00)
[2020-08-26] MEDS: BUDESONIDE/FORMOTEROL 160-4.5 INHALER 6 GM INH SCH ×2 (09:12→22:15)
[2020-08-26] MEDS: PREGABALIN 25 MG CAPSULE PO SCH ×2 (09:12→22:10)
[2020-08-26] MEDS: PREGABALIN 100 MG CAPSULE PO SCH ×2 (09:12→22:11)
[2020-08-26] MEDS: CALCIUM (CARBONATE)/VITAMIN D 600 MG-400 UNIT TABLET PO SCH (09:12)
[2020-08-26] MEDS: CARBIDOPA/LEVODOPA 25-100 MG TABLET PO SCH ×3 (09:12→16:56)
[2020-08-26] MEDS: INSULIN REGULAR 100 UNIT/ML SUBCUT SCH ×4 (09:12→22:35)
[2020-08-26] MEDS: KETOCONAZOLE 2% CREAM 30 GM TUBE TOP SCH (09:13)
[2020-08-26] MEDS: carvediloL 12.5 MG TABLET PO SCH ×2 (09:13→22:13)
[2020-08-26] MEDS: FUROSEMIDE 40 MG/4 ML VIAL IV SCH ×2 (09:13→16:56)
[2020-08-26] MEDS: LOTION (KERI) 236 ML BOTTLE TOP SCH ×2 (09:13→22:19)
[2020-08-26] MEDS: GLIMEPIRIDE 4 MG TABLET PO SCH ×2 (09:13→16:56)
[2020-08-26] MEDS: DOCUSATE SODIUM 100 MG CAPSULE PO SCH ×2 (09:13→22:14)
[2020-08-26] MEDS: ASPIRIN EC 81 MG TABLET PO SCH (09:13)
[2020-08-26] MEDS: lisinopriL 20 MG TABLET PO SCH ×2 (09:14→22:11)
[2020-08-26] MEDS: PYRIDOXINE 50 MG TABLET PO SCH (09:14)
[2020-08-26] MEDS: gemfibroziL 600 MG TABLET PO SCH ×2 (09:14→16:56)
[2020-08-26] MEDS: POTASSIUM CHLORIDE 20 MEQ TABLET PO SCH ×2 (09:14→22:39)
[2020-08-26] MEDS: ISOSORBIDE MONONITRATE 30 MG TABLET PO SCH (09:14)
[2020-08-26] MEDS: allopurinoL 100 MG TABLET PO SCH (09:14)
[2020-08-26] MEDS: PANTOPRAZOLE 40 MG TABLET PO SCH (09:14)
[2020-08-26] MEDS: CYCLOBENZAPRINE 10 MG TABLET PO PRN (22:10)
[2020-08-26] MEDS: MIRTAZAPINE 15 MG TABLET PO SCH (22:12)
[2020-08-26] MEDS: ROSUVASTATIN 20 MG TABLET PO SCH (22:14)
[2020-08-26] MEDS: ENOXAPARIN 40 MG/0.4 ML SYRINGE SUBCUT SCH (22:17)
[2020-08-26] MEDS: INSULIN GLARGINE 100 UNIT/ML SUBCUT SCH (22:35)
[2020-08-26] MEDS: LATANOPROST 0.005% OPH SOLN 2.5 ML BOTTLE BOTH EYES SCH (22:36)
[2020-08-27] MEDS ORDERED: NITROGLYCERIN SL 0.4 MG TABLET SL PRN (00:56)
[2020-08-27] MEDS: ALBUTEROL 0.63 MG/3 ML NEB RESP TX SCH ×4 (01:05→19:52)
[2020-08-27] MEDS: ONDANSETRON 4 MG/2 ML VIAL IV PRN (01:29)
[2020-08-27] MEDS: MORPHINE 2 MG/1 ML SYRINGE IV PRN (01:32)
[2020-08-27 05:02] LABS: Basophils % 0.3 % (0.0-0.8); Eosinophils # 0.2 10*3/uL (0.0-0.87); Eosinophils % 2.5 % (0.00-10.9); Hematocrit 40.7 VOL% (42.0-52.0); Hemoglobin 13.6 GM/DL (14.0-18.0); Immature Granulocytes % 0.4 %; Immature Granulocytes Absolute 0.04 #; Lymphocytes # 2.9 10*3/uL (1.4-4.0); Lymphocytes % 32.2 % (21.2-54.2); Mean Corpuscular HGB Conc 33.4 GM/DL (32-36); Mean Corpuscular Volume 84.6 FL (87-102); Mean Platelet Volume 9.7 FL (9.6-12.0); Monocytes % 7.8 % (1.7-12.7); Neutrophils % 56.8 % (38.7-73.9); Platelet Count 202 T/CUMM (130-400); Red Blood Count 4.81 MC/CUMM (3.8-5.5); Red Cell Distribution Width 13.3 % (9.3-17.3); White Blood Count 8.9 T/CUMM (4-12)
[2020-08-27 05:40] LABS: Calcium 8.1 MG/DL (8.5-10.1); Osmolality,Calculated 281.7 MOS/KG (273-304); Potassium 3.6 MMOL/L (3.5-5.1)
[2020-08-27] MEDS: LEVOTHYROXINE 50 MCG TABLET PO SCH (06:05)
[2020-08-27] MEDS: INSULIN REGULAR 100 UNIT/ML SUBCUT SCH ×4 (08:44→21:19)
[2020-08-27] MEDS: POTASSIUM CHLORIDE 20 MEQ TABLET PO SCH ×2 (08:45→21:15)
[2020-08-27] MEDS: carvediloL 12.5 MG TABLET PO SCH (08:45)
[2020-08-27] MEDS: ISOSORBIDE MONONITRATE 30 MG TABLET PO SCH (08:45)
[2020-08-27] MEDS: KETOCONAZOLE 2% CREAM 30 GM TUBE TOP SCH (08:45)
[2020-08-27] MEDS: FUROSEMIDE 40 MG/4 ML VIAL IV SCH ×2 (08:45→17:04)
[2020-08-27] MEDS: BUDESONIDE/FORMOTEROL 160-4.5 INHALER 6 GM INH SCH ×2 (08:45→22:17)
[2020-08-27] MEDS: LOTION (KERI) 236 ML BOTTLE TOP SCH ×2 (08:45→21:20)
[2020-08-27] MEDS: GLIMEPIRIDE 4 MG TABLET PO SCH ×2 (08:46→17:04)
[2020-08-27] MEDS: PYRIDOXINE 50 MG TABLET PO SCH (08:46)
[2020-08-27] MEDS: lisinopriL 20 MG TABLET PO SCH ×2 (08:46→21:12)
[2020-08-27] MEDS: CALCIUM (CARBONATE)/VITAMIN D 600 MG-400 UNIT TABLET PO SCH (08:46)
[2020-08-27] MEDS: ASPIRIN EC 81 MG TABLET PO SCH (08:46)
[2020-08-27] MEDS: DOCUSATE SODIUM 100 MG CAPSULE PO SCH ×2 (08:46→21:20)
[2020-08-27] MEDS: gemfibroziL 600 MG TABLET PO SCH ×2 (08:46→17:05)
[2020-08-27] MEDS: PANTOPRAZOLE 40 MG TABLET PO SCH ×2 (08:47→21:11)
[2020-08-27] MEDS: PREGABALIN 25 MG CAPSULE PO SCH ×2 (08:47→21:11)
[2020-08-27] MEDS: CARBIDOPA/LEVODOPA 25-100 MG TABLET PO SCH ×3 (08:47→17:04)
[2020-08-27] MEDS: allopurinoL 100 MG TABLET PO SCH (08:47)
[2020-08-27] MEDS: PREGABALIN 100 MG CAPSULE PO SCH ×2 (08:47→21:10)
[2020-08-27] MEDS: oxyCODONE/ACETAMINOPHEN 5-325 MG TABLET PO PRN (17:05)
[2020-08-27] MEDS: MIRTAZAPINE 15 MG TABLET PO SCH (21:11)
[2020-08-27] MEDS: CYCLOBENZAPRINE 10 MG TABLET PO PRN (21:13)
[2020-08-27] MEDS: ROSUVASTATIN 20 MG TABLET PO SCH (21:13)
[2020-08-27] MEDS: ENOXAPARIN 40 MG/0.4 ML SYRINGE SUBCUT SCH (21:18)
[2020-08-27] MEDS: INSULIN GLARGINE 100 UNIT/ML SUBCUT SCH (21:19)
[2020-08-27] MEDS: LATANOPROST 0.005% OPH SOLN 2.5 ML BOTTLE BOTH EYES SCH (22:17)
[2020-08-28] MEDS: ALBUTEROL 0.63 MG/3 ML NEB RESP TX SCH ×4 (00:18→19:43)
[2020-08-28] MEDS: ONDANSETRON 4 MG/2 ML VIAL IV PRN (01:23)
[2020-08-28] MEDS: MORPHINE 2 MG/1 ML SYRINGE IV PRN (01:44)
[2020-08-28] MEDS: LEVOTHYROXINE 50 MCG TABLET PO SCH (06:01)
[2020-08-28] MEDS: INSULIN REGULAR 100 UNIT/ML SUBCUT SCH ×4 (08:41→22:04)
[2020-08-28] MEDS: ASPIRIN EC 81 MG TABLET PO SCH (09:36)
[2020-08-28] MEDS: allopurinoL 100 MG TABLET PO SCH (09:37)
[2020-08-28] MEDS: PREGABALIN 25 MG CAPSULE PO SCH ×2 (09:37→22:00)
[2020-08-28] MEDS: CARBIDOPA/LEVODOPA 25-100 MG TABLET PO SCH ×3 (09:37→17:04)
[2020-08-28] MEDS: CALCIUM (CARBONATE)/VITAMIN D 600 MG-400 UNIT TABLET PO SCH (09:37)
[2020-08-28] MEDS: carvediloL 3.125 MG TABLET PO SCH ×2 (09:37→22:13)
[2020-08-28] MEDS: PREGABALIN 100 MG CAPSULE PO SCH ×2 (09:37→22:00)
[2020-08-28] MEDS: POTASSIUM CHLORIDE 20 MEQ TABLET PO SCH ×2 (09:37→22:04)
[2020-08-28] MEDS: PYRIDOXINE 50 MG TABLET PO SCH (09:38)
[2020-08-28] MEDS: lisinopriL 20 MG TABLET PO SCH ×2 (09:38→22:16)
[2020-08-28] MEDS: oxyCODONE/ACETAMINOPHEN 5-325 MG TABLET PO PRN ×2 (09:38→17:06)
[2020-08-28] MEDS: GLIMEPIRIDE 4 MG TABLET PO SCH ×2 (09:38→17:04)
[2020-08-28] MEDS: gemfibroziL 600 MG TABLET PO SCH ×2 (09:38→17:04)
[2020-08-28] MEDS: PANTOPRAZOLE 40 MG TABLET PO SCH ×2 (09:39→21:59)
[2020-08-28] MEDS: DOCUSATE SODIUM 100 MG CAPSULE PO SCH ×2 (09:39→22:02)
[2020-08-28] MEDS: ISOSORBIDE MONONITRATE 30 MG TABLET PO SCH (09:39)
[2020-08-28] MEDS: FUROSEMIDE 40 MG/4 ML VIAL IV SCH ×2 (09:39→17:04)
[2020-08-28] MEDS: KETOCONAZOLE 2% CREAM 30 GM TUBE TOP SCH (09:40)
[2020-08-28] MEDS: LOTION (KERI) 236 ML BOTTLE TOP SCH ×2 (09:49→22:14)
[2020-08-28] MEDS: BUDESONIDE/FORMOTEROL 160-4.5 INHALER 6 GM INH SCH ×2 (09:49→23:20)
[2020-08-28] MEDS: FLUTICASONE 50 MCG NASAL SPRAY 16 GM BOTTLE BOTH NARES SCH (17:10)
[2020-08-28] MEDS: MIRTAZAPINE 15 MG TABLET PO SCH (21:58)
[2020-08-28] MEDS: CYCLOBENZAPRINE 10 MG TABLET PO PRN (22:01)
[2020-08-28] MEDS: ROSUVASTATIN 20 MG TABLET PO SCH (22:01)
[2020-08-28] MEDS: INSULIN GLARGINE 100 UNIT/ML SUBCUT SCH (22:08)
[2020-08-28] MEDS: LATANOPROST 0.005% OPH SOLN 2.5 ML BOTTLE BOTH EYES SCH (23:20)
[2020-08-28] MEDS: ENOXAPARIN 40 MG/0.4 ML SYRINGE SUBCUT SCH (23:20)
[2020-08-29] MEDS: ALBUTEROL 0.63 MG/3 ML NEB RESP TX SCH ×4 (01:30→20:08)
[2020-08-29] MEDS: ONDANSETRON 4 MG/2 ML VIAL IV PRN ×2 (02:34→18:38)
[2020-08-29] MEDS: MORPHINE 2 MG/1 ML SYRINGE IV PRN ×2 (02:36→16:30)
[2020-08-29] MEDS: LEVOTHYROXINE 50 MCG TABLET PO SCH (06:23)
[2020-08-29 06:35] LABS: Basophils % 0.5 % (0.0-0.8); Eosinophils # 0.3 10*3/uL (0.0-0.87); Eosinophils % 3.8 % (0.00-10.9); Hemoglobin 14.2 GM/DL (14.0-18.0); Immature Granulocytes % 0.3 %; Immature Granulocytes Absolute 0.02 #; Lymphocytes # 2.9 10*3/uL (1.4-4.0); Lymphocytes % 38.6 % (21.2-54.2); Mean Corpuscular Volume 85.8 FL (87-102); Mean Platelet Volume 9.8 FL (9.6-12.0); Monocytes % 8.6 % (1.7-12.7); Neutrophils % 48.2 % (38.7-73.9); Platelet Count 222 T/CUMM (130-400); Red Blood Count 5.01 MC/CUMM (3.8-5.5); Red Cell Distribution Width 13.2 % (9.3-17.3); White Blood Count 7.6 T/CUMM (4-12)
[2020-08-29 07:02] LABS: Calcium 8.1 MG/DL (8.5-10.1); Osmolality,Calculated 280.5 MOS/KG (273-304); Potassium 3.6 MMOL/L (3.5-5.1)
[2020-08-29] MEDS: INSULIN REGULAR 100 UNIT/ML SUBCUT SCH ×4 (08:07→20:31)
[2020-08-29] MEDS: CALCIUM (CARBONATE)/VITAMIN D 600 MG-400 UNIT TABLET PO SCH (08:51)
[2020-08-29] MEDS: PREGABALIN 100 MG CAPSULE PO SCH ×2 (08:51→20:30)
[2020-08-29] MEDS: PANTOPRAZOLE 40 MG TABLET PO SCH ×2 (08:51→20:31)
[2020-08-29] MEDS: gemfibroziL 600 MG TABLET PO SCH ×2 (08:51→16:21)
[2020-08-29] MEDS: ISOSORBIDE MONONITRATE 30 MG TABLET PO SCH (08:52)
[2020-08-29] MEDS: CARBIDOPA/LEVODOPA 25-100 MG TABLET PO SCH ×3 (08:52→16:21)
[2020-08-29] MEDS: allopurinoL 100 MG TABLET PO SCH (08:52)
[2020-08-29] MEDS: GLIMEPIRIDE 4 MG TABLET PO SCH ×2 (08:52→16:21)
[2020-08-29] MEDS: PREGABALIN 25 MG CAPSULE PO SCH ×2 (08:52→20:30)
[2020-08-29] MEDS: ASPIRIN EC 81 MG TABLET PO SCH (08:52)
[2020-08-29] MEDS: BUDESONIDE/FORMOTEROL 160-4.5 INHALER 6 GM INH SCH ×2 (08:52→20:32)
[2020-08-29] MEDS: lisinopriL 20 MG TABLET PO SCH ×2 (08:52→20:31)
[2020-08-29] MEDS: DOCUSATE SODIUM 100 MG CAPSULE PO SCH ×2 (08:52→20:31)
[2020-08-29] MEDS: KETOCONAZOLE 2% CREAM 30 GM TUBE TOP SCH (08:53)
[2020-08-29] MEDS: LOTION (KERI) 236 ML BOTTLE TOP SCH ×2 (08:53→20:32)
[2020-08-29] MEDS: POTASSIUM CHLORIDE 20 MEQ TABLET PO SCH ×2 (08:53→20:30)
[2020-08-29] MEDS: FUROSEMIDE 40 MG/4 ML VIAL IV SCH ×2 (08:53→16:21)
[2020-08-29] MEDS: carvediloL 3.125 MG TABLET PO SCH ×2 (08:53→20:30)
[2020-08-29] MEDS: PYRIDOXINE 50 MG TABLET PO SCH (08:54)
[2020-08-29] MEDS: oxyCODONE/ACETAMINOPHEN 5-325 MG TABLET PO PRN (13:40)
[2020-08-29] MEDS ORDERED: BISACODYL 5 MG TABLET PO ONE (15:00)
[2020-08-29] MEDS ORDERED: POLYETHYLENE GLYCOL POWDER 255 GM BOTTLE PO ONE (18:00)
[2020-08-29] MEDS: ROSUVASTATIN 20 MG TABLET PO SCH (20:30)
[2020-08-29] MEDS: MIRTAZAPINE 15 MG TABLET PO SCH (20:31)
[2020-08-29] MEDS: INSULIN GLARGINE 100 UNIT/ML SUBCUT SCH (20:31)
[2020-08-29] MEDS: LATANOPROST 0.005% OPH SOLN 2.5 ML BOTTLE BOTH EYES SCH (20:32)
[2020-08-30] MEDS: ALBUTEROL 0.63 MG/3 ML NEB RESP TX SCH ×4 (01:14→22:00)
[2020-08-30] MEDS ORDERED: POLYETHYLENE GLYCOL POWDER 255 GM BOTTLE PO ONE (05:00)
[2020-08-30] MEDS: LEVOTHYROXINE 50 MCG TABLET PO SCH (06:42)
[2020-08-30] MEDS: INSULIN REGULAR 100 UNIT/ML SUBCUT SCH ×4 (07:43→21:00)
[2020-08-30] MEDS: FUROSEMIDE 40 MG/4 ML VIAL IV SCH ×2 (09:00→17:01)
[2020-08-30] MEDS: gemfibroziL 600 MG TABLET PO SCH ×2 (09:00→17:01)
[2020-08-30] MEDS: GLIMEPIRIDE 4 MG TABLET PO SCH ×2 (09:00→17:01)
[2020-08-30] MEDS: CARBIDOPA/LEVODOPA 25-100 MG TABLET PO SCH ×3 (09:00→17:01)
[2020-08-30] MEDS: LOTION (KERI) 236 ML BOTTLE TOP SCH ×2 (10:16→20:40)
[2020-08-30] MEDS: KETOCONAZOLE 2% CREAM 30 GM TUBE TOP SCH (10:16)
[2020-08-30] MEDS: BUDESONIDE/FORMOTEROL 160-4.5 INHALER 6 GM INH SCH ×2 (10:17→20:40)
[2020-08-30] MEDS: MORPHINE 2 MG/1 ML SYRINGE IV PRN (11:23)
[2020-08-30] MEDS: LACTATED RINGERS 1,000 ML IV SCH (12:42)
[2020-08-30] MEDS: DOCUSATE SODIUM 100 MG CAPSULE PO SCH ×2 (14:20→20:39)
[2020-08-30] MEDS: PANTOPRAZOLE 40 MG TABLET PO SCH ×2 (14:21→20:39)
[2020-08-30] MEDS: POTASSIUM CHLORIDE 20 MEQ TABLET PO SCH ×2 (14:21→20:39)
[2020-08-30] MEDS: PREGABALIN 100 MG CAPSULE PO SCH ×2 (14:21→20:39)
[2020-08-30] MEDS: PREGABALIN 25 MG CAPSULE PO SCH ×2 (14:21→20:40)
[2020-08-30] MEDS ORDERED: GLYCOPYRROLATE 0.4 MG/2 ML VIAL ONE (14:24)
[2020-08-30] MEDS ORDERED: propofoL 200 MG/20 ML VIAL IV ONE (14:24)
[2020-08-30] MEDS ORDERED: LIDOCAINE 2% 5 ML VIAL ONE (14:24)
[2020-08-30] MEDS: ISOSORBIDE MONONITRATE 30 MG TABLET PO SCH (15:30)
[2020-08-30] MEDS: allopurinoL 100 MG TABLET PO SCH (15:30)
[2020-08-30] MEDS: lisinopriL 20 MG TABLET PO SCH ×2 (15:30→20:39)
[2020-08-30] MEDS: PYRIDOXINE 50 MG TABLET PO SCH (15:30)
[2020-08-30] MEDS: ASPIRIN EC 81 MG TABLET PO SCH (15:30)
[2020-08-30] MEDS: CALCIUM (CARBONATE)/VITAMIN D 600 MG-400 UNIT TABLET PO SCH (15:30)
[2020-08-30] MEDS: carvediloL 3.125 MG TABLET PO SCH ×2 (15:30→20:39)
[2020-08-30] MEDS: oxyCODONE/ACETAMINOPHEN 5-325 MG TABLET PO PRN ×2 (17:01→22:48)
[2020-08-30] MEDS: MIRTAZAPINE 15 MG TABLET PO SCH (20:39)
[2020-08-30] MEDS: ROSUVASTATIN 20 MG TABLET PO SCH (20:39)
[2020-08-30] MEDS: LATANOPROST 0.005% OPH SOLN 2.5 ML BOTTLE BOTH EYES SCH (20:40)
[2020-08-30] MEDS: INSULIN GLARGINE 100 UNIT/ML SUBCUT SCH (21:04)
[2020-08-31] MEDS: ALBUTEROL 0.63 MG/3 ML NEB RESP TX SCH ×3 (03:29→12:42)
[2020-08-31] MEDS: oxyCODONE/ACETAMINOPHEN 5-325 MG TABLET PO PRN ×2 (04:44→13:26)
[2020-08-31] MEDS: LEVOTHYROXINE 50 MCG TABLET PO SCH (06:14)
[2020-08-31] MEDS ORDERED: RIVAROXABAN 20 MG TABLET PO SCH (08:00)
[2020-08-31] MEDS: PYRIDOXINE 50 MG TABLET PO SCH (09:30)
[2020-08-31] MEDS: PANTOPRAZOLE 40 MG TABLET PO SCH (09:31)
[2020-08-31] MEDS: DOCUSATE SODIUM 100 MG CAPSULE PO SCH (09:31)
[2020-08-31] MEDS: carvediloL 3.125 MG TABLET PO SCH (09:31)
[2020-08-31] MEDS: lisinopriL 20 MG TABLET PO SCH (09:31)
[2020-08-31] MEDS: CALCIUM (CARBONATE)/VITAMIN D 600 MG-400 UNIT TABLET PO SCH (09:31)
[2020-08-31] MEDS: ASPIRIN EC 81 MG TABLET PO SCH (09:31)
[2020-08-31] MEDS: allopurinoL 100 MG TABLET PO SCH (09:31)
[2020-08-31] MEDS: CARBIDOPA/LEVODOPA 25-100 MG TABLET PO SCH ×3 (09:32→16:11)
[2020-08-31] MEDS: POTASSIUM CHLORIDE 20 MEQ TABLET PO SCH (09:32)
[2020-08-31] MEDS: PREGABALIN 25 MG CAPSULE PO SCH (09:32)
[2020-08-31] MEDS: ISOSORBIDE MONONITRATE 30 MG TABLET PO SCH (09:32)
[2020-08-31] MEDS: PREGABALIN 100 MG CAPSULE PO SCH (09:32)
[2020-08-31] MEDS: gemfibroziL 600 MG TABLET PO SCH ×2 (09:32→16:11)
[2020-08-31] MEDS: FUROSEMIDE 40 MG/4 ML VIAL IV SCH ×2 (09:33→16:11)
[2020-08-31] MEDS: GLIMEPIRIDE 4 MG TABLET PO SCH ×2 (09:33→16:11)
[2020-08-31] MEDS: BUDESONIDE/FORMOTEROL 160-4.5 INHALER 6 GM INH SCH (09:37)
[2020-08-31] MEDS: LOTION (KERI) 236 ML BOTTLE TOP SCH (09:37)
[2020-08-31] MEDS: KETOCONAZOLE 2% CREAM 30 GM TUBE TOP SCH (09:37)
[2020-08-31] MEDS: INSULIN REGULAR 100 UNIT/ML SUBCUT SCH ×3 (09:46→18:02)
[2020-08-31] MEDS: LACTATED RINGERS 1,000 ML IV SCH (13:04)
[2020-08-31 17:00] VITALS: BP 123/71
[2020-08-31] MEDS: FLUTICASONE 50 MCG NASAL SPRAY 16 GM BOTTLE BOTH NARES SCH (17:26)
== END 2020-08-31 19:01 | disposition home health service (06) | DRG 292 ==
LOC: N.EDINP 05:12 → N.ED 05:12 → N.TELES 13:13
PROVIDERS: ADMIT Internal Medicine; ATTEND Internal Medicine

== ENCOUNTER 2021-11-06 00:44 | Inpatient (IN) ==
[2021-11-06] MEDS ORDERED: NITROGLYCERIN 2% OINT 1 INCH/GM PACK TOP STA (01:14)
[2021-11-06] MEDS ORDERED: ONDANSETRON 4 MG/2 ML VIAL IV STA (01:14)
[2021-11-06 01:26] LABS: Basophils # 0.1 10*3/uL (0.0-0.2); Basophils % 0.5 % (0.0-0.8); Eosinophils # 0.2 10*3/uL (0.0-0.87); Eosinophils % 2.1 % (0.00-10.9); Hematocrit 46.1 VOL% (42.0-52.0); Immature Granulocytes % 0.3 %; Immature Granulocytes Absolute 0.04 #; Lymphocytes # 3.4 10*3/uL (1.4-4.0); Mean Corpuscular HGB Conc 34.7 GM/DL (32-36); Mean Corpuscular Volume 85.5 FL (87-102); Mean Platelet Volume 9.2 FL (9.6-12.0); Monocytes # 0.9 10*3/uL (0.11-0.8); Monocytes % 7.4 % (1.7-12.7); Neutrophils % 60.7 % (38.7-73.9); Platelet Count 174 T/CUMM (130-400); Red Blood Count 5.39 MC/CUMM (3.8-5.5); Red Cell Distribution Width 13.2 % (9.3-17.3); White Blood Count 11.7 T/CUMM (4-12)
[2021-11-06 01:54] LABS: INR 1.2; PT Patient Result 12.7 SECS (10.1-12.1); Partial Thromboplastin Time 41.7 SECS (23.7-32.9)
[2021-11-06 01:57] LABS: Alanine Aminotransferase < 9 U/L (16-61); Albumin 2.8 G/DL (3.4-5.0); Alkaline Phosphatase 70 U/L (45-117); Aspartate Amino Transferase 21 U/L (0-37); Bilirubin,Total < 0.39 MG/DL (0.20-1.00); Blood Urea Nitrogen 25 MG/DL (7-18); Calcium 8.1 MG/DL (8.5-10.1); Carbon Dioxide 22 MMOL/L (21-32); Chloride 104 MMOL/L (98-107); Glucose 337 MG/DL (74-106); Sodium 136 MMOL/L (136-145); Total Protein 6.5 G/DL (6.4-8.2)
[2021-11-06] MEDS ORDERED: GLUCAGON 1 MG VIAL IM PRN (04:38)
[2021-11-06] MEDS ORDERED: ACETAMINOPHEN 325 MG TABLET PO PRN (04:38)
[2021-11-06] MEDS ORDERED: DEXTROSE 10% 250 ML BAG IV PRN (04:41)
[2021-11-06] MEDS: NITROGLYCERIN 2% OINT 1 INCH/GM PACK TOP SCH ×2 (06:10→10:13)
[2021-11-06] MEDS: SODIUM CHLORIDE 0.9% 1,000 ML IV SCH (06:10)
[2021-11-06] MEDS: ONDANSETRON 4 MG/2 ML VIAL IV PRN (06:10)
[2021-11-06] MEDS: INSULIN REGULAR 100 UNIT/ML SUBCUT SCH ×3 (06:11→18:32)
[2021-11-06] MEDS ORDERED: ASPIRIN EC 325 MG TABLET PO SCH (09:00)
[2021-11-06] MEDS: ISOSORBIDE MONONITRATE 60 MG TABLET PO SCH (10:12)
[2021-11-06] MEDS: DOCUSATE SODIUM 100 MG CAPSULE PO SCH ×2 (10:12→21:38)
[2021-11-06] MEDS: gemfibroziL 600 MG TABLET PO SCH ×2 (10:12→21:38)
[2021-11-06] MEDS: RIVAROXABAN 20 MG TABLET PO SCH (10:13)
[2021-11-06] MEDS: ASPIRIN EC 81 MG TABLET PO SCH (10:13)
[2021-11-06] MEDS: lisinopriL 20 MG TABLET PO SCH ×2 (10:13→21:38)
[2021-11-06] MEDS: carvediloL 25 MG TABLET PO SCH ×2 (10:13→16:15)
[2021-11-06] MEDS: PANTOPRAZOLE 40 MG VIAL IV SCH (10:15)
[2021-11-06] MEDS: FUROSEMIDE 40 MG TABLET PO SCH (10:36)
[2021-11-06] MEDS: cefTRIAXone 1,000 MG in SODIUM CHLORIDE 0.9% 100 ML IV SCH (12:56)
[2021-11-06] MEDS: CARBIDOPA/LEVODOPA 25-100 MG TABLET PO SCH ×2 (12:56→16:15)
[2021-11-06] MEDS: ALBUTEROL/IPRATROPIUM 3 ML NEB RESP TX SCH (15:18)
[2021-11-06] MEDS: GLIMEPIRIDE 4 MG TABLET PO SCH (16:15)
[2021-11-06] MEDS ORDERED: TERAZOSIN 2 MG CAPSULE PO SCH (21:00)
[2021-11-06] MEDS: TAMSULOSIN 0.4 MG CAPSULE PO SCH (21:38)
[2021-11-06] MEDS: ROSUVASTATIN 20 MG TABLET PO SCH (21:38)
[2021-11-06] MEDS: POTASSIUM CHLORIDE 20 MEQ TABLET PO SCH (21:38)
[2021-11-06] MEDS: LATANOPROST 0.005% OPH SOLN 2.5 ML BOTTLE BOTH EYES SCH (21:42)
[2021-11-06] MEDS: PREGABALIN 25 MG CAPSULE PO SCH (21:47)
[2021-11-07] MEDS: INSULIN REGULAR 100 UNIT/ML SUBCUT SCH ×4 (01:18→17:45)
[2021-11-07] MEDS: ALBUTEROL/IPRATROPIUM 3 ML NEB RESP TX SCH ×4 (03:54→20:00)
[2021-11-07 05:07] LABS: Basophils % 0.3 % (0.0-0.8); Eosinophils # 0.3 10*3/uL (0.0-0.87); Eosinophils % 2.9 % (0.00-10.9); Hematocrit 45.1 VOL% (42.0-52.0); Hemoglobin 15.1 GM/DL (14.0-18.0); Immature Granulocytes % 0.2 %; Immature Granulocytes Absolute 0.02 #; Lymphocytes # 2.6 10*3/uL (1.4-4.0); Lymphocytes % 27.9 % (21.2-54.2); Mean Corpuscular HGB Conc 33.5 GM/DL (32-36); Mean Corpuscular Volume 87.9 FL (87-102); Mean Platelet Volume 9.6 FL (9.6-12.0); Monocytes # 0.7 10*3/uL (0.11-0.8); Monocytes % 7.4 % (1.7-12.7); Neutrophils % 61.3 % (38.7-73.9); Platelet Count 162 T/CUMM (130-400); Red Blood Count 5.13 MC/CUMM (3.8-5.5); Red Cell Distribution Width 13.2 % (9.3-17.3); White Blood Count 9.5 T/CUMM (4-12)
[2021-11-07 05:20] LABS: Albumin 2.9 G/DL (3.4-5.0); Bilirubin,Total 0.5 MG/DL (0.20-1.00); Osmolality,Calculated 291.3 MOS/KG (273-304); Risk Ratio 4.03; Total Protein 6.7 G/DL (6.4-8.2); VLDL Cholesterol 58.8 MG/DL
[2021-11-07] MEDS: SODIUM CHLORIDE 0.9% 1,000 ML IV SCH (05:41)
[2021-11-07] MEDS: LEVOTHYROXINE 50 MCG TABLET PO SCH (06:00)
[2021-11-07] MEDS: ISOSORBIDE MONONITRATE 60 MG TABLET PO SCH (09:33)
[2021-11-07] MEDS: PREGABALIN 25 MG CAPSULE PO SCH ×2 (09:33→21:32)
[2021-11-07] MEDS: carvediloL 25 MG TABLET PO SCH ×2 (09:33→17:52)
[2021-11-07] MEDS: ASPIRIN EC 81 MG TABLET PO SCH (09:33)
[2021-11-07] MEDS: lisinopriL 20 MG TABLET PO SCH ×2 (09:33→21:32)
[2021-11-07] MEDS: CARBIDOPA/LEVODOPA 25-100 MG TABLET PO SCH ×3 (09:33→17:52)
[2021-11-07] MEDS: DOCUSATE SODIUM 100 MG CAPSULE PO SCH ×2 (09:33→21:33)
[2021-11-07] MEDS: POTASSIUM CHLORIDE 20 MEQ TABLET PO SCH ×2 (09:33→21:32)
[2021-11-07] MEDS: FUROSEMIDE 40 MG TABLET PO SCH (09:34)
[2021-11-07] MEDS: INSULIN GLARGINE 100 UNIT/ML SUBCUT SCH (09:34)
[2021-11-07] MEDS: allopurinoL 100 MG TABLET PO SCH (09:34)
[2021-11-07] MEDS: TAMSULOSIN 0.4 MG CAPSULE PO SCH ×2 (09:34→21:32)
[2021-11-07] MEDS: PANTOPRAZOLE 40 MG VIAL IV SCH (09:34)
[2021-11-07] MEDS: FLUTICASONE 50 MCG NASAL SPRAY 16 GM BOTTLE BOTH NARES SCH (09:39)
[2021-11-07] MEDS: GLIMEPIRIDE 4 MG TABLET PO SCH ×2 (09:39→17:52)
[2021-11-07] MEDS: RIVAROXABAN 20 MG TABLET PO SCH (09:39)
[2021-11-07] MEDS: gemfibroziL 600 MG TABLET PO SCH ×2 (09:39→21:32)
[2021-11-07] MEDS ORDERED: methylPREDNISolone ACETATE 40 MG/1 ML VIAL MISC INJ ONE (11:46)
[2021-11-07] MEDS ORDERED: LIDOCAINE 1% 20 ML VIAL MISC INJ ONE (11:47)
[2021-11-07] MEDS: cefTRIAXone 1,000 MG in SODIUM CHLORIDE 0.9% 100 ML IV SCH (12:17)
[2021-11-07] MEDS: ROSUVASTATIN 20 MG TABLET PO SCH (21:32)
[2021-11-07] MEDS: LATANOPROST 0.005% OPH SOLN 2.5 ML BOTTLE BOTH EYES SCH (21:33)
[2021-11-08] MEDS: INSULIN REGULAR 100 UNIT/ML SUBCUT SCH ×4 (00:31→18:34)
[2021-11-08 05:06] LABS: Basophils % 0.4 % (0.0-0.8); Eosinophils # 0.3 10*3/uL (0.0-0.87); Eosinophils % 3.5 % (0.00-10.9); Hematocrit 44.1 VOL% (42.0-52.0); Immature Granulocytes % 0.2 %; Immature Granulocytes Absolute 0.02 #; Lymphocytes # 2.6 10*3/uL (1.4-4.0); Lymphocytes % 31.1 % (21.2-54.2); Mean Corpuscular Volume 87.2 FL (87-102); Mean Platelet Volume 9.5 FL (9.6-12.0); Monocytes # 0.6 10*3/uL (0.11-0.8); Monocytes % 7.4 % (1.7-12.7); Neutrophils % 57.4 % (38.7-73.9); Platelet Count 176 T/CUMM (130-400); Red Blood Count 5.06 MC/CUMM (3.8-5.5); Red Cell Distribution Width 13.2 % (9.3-17.3); White Blood Count 8.5 T/CUMM (4-12)
[2021-11-08 05:27] LABS: Calcium 7.8 MG/DL (8.5-10.1); Osmolality,Calculated 284.3 MOS/KG (273-304); Potassium 3.6 MMOL/L (3.5-5.1)
[2021-11-08] MEDS: LEVOTHYROXINE 50 MCG TABLET PO SCH (05:36)
[2021-11-08] MEDS: SODIUM CHLORIDE 0.9% 1,000 ML IV SCH (05:36)
[2021-11-08] MEDS: ALBUTEROL/IPRATROPIUM 3 ML NEB RESP TX SCH ×2 (07:05→14:00)
[2021-11-08] MEDS: GLIMEPIRIDE 4 MG TABLET PO SCH ×2 (10:12→18:33)
[2021-11-08] MEDS: ASPIRIN EC 81 MG TABLET PO SCH (10:13)
[2021-11-08] MEDS: DOCUSATE SODIUM 100 MG CAPSULE PO SCH ×2 (10:13→22:06)
[2021-11-08] MEDS: carvediloL 25 MG TABLET PO SCH ×2 (10:13→18:33)
[2021-11-08] MEDS: CARBIDOPA/LEVODOPA 25-100 MG TABLET PO SCH ×3 (10:13→18:33)
[2021-11-08] MEDS: POTASSIUM CHLORIDE 20 MEQ TABLET PO SCH ×2 (10:14→22:06)
[2021-11-08] MEDS: FUROSEMIDE 40 MG TABLET PO SCH (10:14)
[2021-11-08] MEDS: TAMSULOSIN 0.4 MG CAPSULE PO SCH ×2 (10:14→22:05)
[2021-11-08] MEDS: ISOSORBIDE MONONITRATE 60 MG TABLET PO SCH (10:14)
[2021-11-08] MEDS: INSULIN GLARGINE 100 UNIT/ML SUBCUT SCH (10:14)
[2021-11-08] MEDS: allopurinoL 100 MG TABLET PO SCH (10:15)
[2021-11-08] MEDS: gemfibroziL 600 MG TABLET PO SCH ×2 (10:15→22:05)
[2021-11-08] MEDS: lisinopriL 20 MG TABLET PO SCH ×2 (10:15→22:05)
[2021-11-08] MEDS: PREGABALIN 25 MG CAPSULE PO SCH ×2 (10:15→22:06)
[2021-11-08] MEDS: RIVAROXABAN 20 MG TABLET PO SCH (10:16)
[2021-11-08] MEDS: PANTOPRAZOLE 40 MG VIAL IV SCH (10:19)
[2021-11-08] MEDS: cefTRIAXone 1,000 MG in SODIUM CHLORIDE 0.9% 100 ML IV SCH (11:54)
[2021-11-08] MEDS: ONDANSETRON 4 MG/2 ML VIAL IV PRN (18:36)
[2021-11-08] MEDS: ROSUVASTATIN 20 MG TABLET PO SCH (22:05)
[2021-11-08] MEDS: LATANOPROST 0.005% OPH SOLN 2.5 ML BOTTLE BOTH EYES SCH (22:07)
[2021-11-09] MEDS: INSULIN REGULAR 100 UNIT/ML SUBCUT SCH ×4 (00:02→17:33)
[2021-11-09] MEDS: ALBUTEROL/IPRATROPIUM 3 ML NEB RESP TX SCH ×3 (00:54→14:40)
[2021-11-09] MEDS: SODIUM CHLORIDE 0.9% 1,000 ML IV SCH (05:36)
[2021-11-09] MEDS: LEVOTHYROXINE 50 MCG TABLET PO SCH (05:56)
[2021-11-09] MEDS: INSULIN GLARGINE 100 UNIT/ML SUBCUT SCH (09:11)
[2021-11-09] MEDS: GLIMEPIRIDE 4 MG TABLET PO SCH ×2 (09:13→16:06)
[2021-11-09] MEDS: POTASSIUM CHLORIDE 20 MEQ TABLET PO SCH ×2 (09:13→21:38)
[2021-11-09] MEDS: ASPIRIN EC 81 MG TABLET PO SCH (09:14)
[2021-11-09] MEDS: allopurinoL 100 MG TABLET PO SCH (09:14)
[2021-11-09] MEDS: carvediloL 25 MG TABLET PO SCH ×2 (09:14→16:06)
[2021-11-09] MEDS: TAMSULOSIN 0.4 MG CAPSULE PO SCH ×2 (09:14→21:38)
[2021-11-09] MEDS: ISOSORBIDE MONONITRATE 60 MG TABLET PO SCH (09:14)
[2021-11-09] MEDS: gemfibroziL 600 MG TABLET PO SCH ×2 (09:14→21:38)
[2021-11-09] MEDS: lisinopriL 20 MG TABLET PO SCH ×2 (09:14→21:38)
[2021-11-09] MEDS: RIVAROXABAN 20 MG TABLET PO SCH (09:14)
[2021-11-09] MEDS: DOCUSATE SODIUM 100 MG CAPSULE PO SCH ×2 (09:14→21:38)
[2021-11-09] MEDS: CARBIDOPA/LEVODOPA 25-100 MG TABLET PO SCH ×3 (09:17→16:06)
[2021-11-09] MEDS: PREGABALIN 25 MG CAPSULE PO SCH ×2 (09:17→21:38)
[2021-11-09] MEDS: FUROSEMIDE 40 MG TABLET PO SCH (09:18)
[2021-11-09] MEDS: PANTOPRAZOLE 40 MG VIAL IV SCH (09:19)
[2021-11-09] MEDS: cefTRIAXone 1,000 MG in SODIUM CHLORIDE 0.9% 100 ML IV SCH (13:35)
[2021-11-09] MEDS: ROSUVASTATIN 20 MG TABLET PO SCH (21:38)
[2021-11-09] MEDS: LATANOPROST 0.005% OPH SOLN 2.5 ML BOTTLE BOTH EYES SCH (21:49)
[2021-11-10] MEDS: INSULIN REGULAR 100 UNIT/ML SUBCUT SCH ×4 (00:10→18:37)
[2021-11-10] MEDS: SODIUM CHLORIDE 0.9% 1,000 ML IV SCH (05:59)
[2021-11-10] MEDS: LEVOTHYROXINE 50 MCG TABLET PO SCH (06:11)
[2021-11-10] MEDS: ALBUTEROL/IPRATROPIUM 3 ML NEB RESP TX SCH ×3 (07:15→22:33)
[2021-11-10] MEDS ORDERED: hydrALAZINE 20 MG/1 ML VIAL IV PRN (08:34)
[2021-11-10] MEDS: INSULIN GLARGINE 100 UNIT/ML SUBCUT SCH (09:24)
[2021-11-10] MEDS: PANTOPRAZOLE 40 MG VIAL IV SCH (09:28)
[2021-11-10] MEDS: allopurinoL 100 MG TABLET PO SCH (09:29)
[2021-11-10] MEDS: ASPIRIN EC 81 MG TABLET PO SCH (09:29)
[2021-11-10] MEDS: carvediloL 25 MG TABLET PO SCH ×2 (09:29→17:25)
[2021-11-10] MEDS: TAMSULOSIN 0.4 MG CAPSULE PO SCH ×2 (09:29→20:55)
[2021-11-10] MEDS: FUROSEMIDE 40 MG TABLET PO SCH (09:29)
[2021-11-10] MEDS: CARBIDOPA/LEVODOPA 25-100 MG TABLET PO SCH ×3 (09:29→17:25)
[2021-11-10] MEDS: PREGABALIN 25 MG CAPSULE PO SCH ×2 (09:30→20:55)
[2021-11-10] MEDS: DOCUSATE SODIUM 100 MG CAPSULE PO SCH ×2 (09:30→20:55)
[2021-11-10] MEDS: RIVAROXABAN 20 MG TABLET PO SCH (09:30)
[2021-11-10] MEDS: POTASSIUM CHLORIDE 20 MEQ TABLET PO SCH ×2 (09:30→20:55)
[2021-11-10] MEDS: gemfibroziL 600 MG TABLET PO SCH ×2 (09:30→20:56)
[2021-11-10] MEDS: lisinopriL 20 MG TABLET PO SCH ×2 (09:30→20:56)
[2021-11-10] MEDS: GLIMEPIRIDE 4 MG TABLET PO SCH ×2 (09:30→17:25)
[2021-11-10] MEDS: ISOSORBIDE MONONITRATE 60 MG TABLET PO SCH (09:30)
[2021-11-10] MEDS: FLUTICASONE 50 MCG NASAL SPRAY 16 GM BOTTLE BOTH NARES SCH (09:31)
[2021-11-10] MEDS ORDERED: cloNIDine 0.1 MG TABLET PO SCH (10:23)
[2021-11-10] MEDS: cefTRIAXone 1,000 MG in SODIUM CHLORIDE 0.9% 100 ML IV SCH (12:29)
[2021-11-10] MEDS: cloNIDine 0.1 MG TABLET PO SCH (20:55)
[2021-11-10] MEDS: ROSUVASTATIN 20 MG TABLET PO SCH (20:55)
[2021-11-10] MEDS: LATANOPROST 0.005% OPH SOLN 2.5 ML BOTTLE BOTH EYES SCH (20:56)
[2021-11-11] MEDS: INSULIN REGULAR 100 UNIT/ML SUBCUT SCH ×4 (02:39→18:36)
[2021-11-11] MEDS: LEVOTHYROXINE 50 MCG TABLET PO SCH (05:46)
[2021-11-11 06:34] LABS: Basophils # 0.1 10*3/uL (0.0-0.2); Basophils % 0.5 % (0.0-0.8); Eosinophils # 0.2 10*3/uL (0.0-0.87); Eosinophils % 2.6 % (0.00-10.9); Hematocrit 42.1 VOL% (42.0-52.0); Hemoglobin 14.1 GM/DL (14.0-18.0); Immature Granulocytes % 0.2 %; Immature Granulocytes Absolute 0.02 #; Lymphocytes # 2.9 10*3/uL (1.4-4.0); Lymphocytes % 31.5 % (21.2-54.2); Mean Corpuscular HGB Conc 33.5 GM/DL (32-36); Mean Corpuscular Volume 89.2 FL (87-102); Mean Platelet Volume 10.1 FL (9.6-12.0); Monocytes # 0.7 10*3/uL (0.11-0.8); Neutrophils % 57.2 % (38.7-73.9); Platelet Count 203 T/CUMM (130-400); Red Blood Count 4.72 MC/CUMM (3.8-5.5); Red Cell Distribution Width 13.4 % (9.3-17.3); White Blood Count 9.3 T/CUMM (4-12)
[2021-11-11 06:49] LABS: Calcium 8.3 MG/DL (8.5-10.1); Osmolality,Calculated 285.4 MOS/KG (273-304); Potassium 3.7 MMOL/L (3.5-5.1)
[2021-11-11] MEDS: ALBUTEROL/IPRATROPIUM 3 ML NEB RESP TX SCH ×3 (07:18→22:46)
[2021-11-11] MEDS: ISOSORBIDE MONONITRATE 60 MG TABLET PO SCH (09:47)
[2021-11-11] MEDS: lisinopriL 20 MG TABLET PO SCH ×2 (09:47→20:44)
[2021-11-11] MEDS: FUROSEMIDE 40 MG TABLET PO SCH (09:47)
[2021-11-11] MEDS: allopurinoL 100 MG TABLET PO SCH (09:47)
[2021-11-11] MEDS: carvediloL 25 MG TABLET PO SCH ×2 (09:47→16:28)
[2021-11-11] MEDS: DOCUSATE SODIUM 100 MG CAPSULE PO SCH ×2 (09:47→20:44)
[2021-11-11] MEDS: gemfibroziL 600 MG TABLET PO SCH ×2 (09:47→20:44)
[2021-11-11] MEDS: cloNIDine 0.1 MG TABLET PO SCH ×3 (09:47→20:44)
[2021-11-11] MEDS: GLIMEPIRIDE 4 MG TABLET PO SCH ×2 (09:47→16:27)
[2021-11-11] MEDS: POTASSIUM CHLORIDE 20 MEQ TABLET PO SCH ×2 (09:47→20:44)
[2021-11-11] MEDS: ASPIRIN EC 81 MG TABLET PO SCH (09:47)
[2021-11-11] MEDS: PREGABALIN 25 MG CAPSULE PO SCH ×2 (09:48→20:44)
[2021-11-11] MEDS: CARBIDOPA/LEVODOPA 25-100 MG TABLET PO SCH ×3 (09:48→16:28)
[2021-11-11] MEDS: PANTOPRAZOLE 40 MG VIAL IV SCH (09:48)
[2021-11-11] MEDS: RIVAROXABAN 20 MG TABLET PO SCH (09:48)
[2021-11-11] MEDS: TAMSULOSIN 0.4 MG CAPSULE PO SCH ×2 (09:48→20:45)
[2021-11-11] MEDS: INSULIN GLARGINE 100 UNIT/ML SUBCUT SCH (09:49)
[2021-11-11] MEDS: SODIUM CHLORIDE 0.9% 1,000 ML IV SCH (09:49)
[2021-11-11] MEDS: cefTRIAXone 1,000 MG in SODIUM CHLORIDE 0.9% 100 ML IV SCH (12:07)
[2021-11-11] MEDS: MORPHINE 2 MG/1 ML SYRINGE IV PRN (19:44)
[2021-11-11] MEDS: LATANOPROST 0.005% OPH SOLN 2.5 ML BOTTLE BOTH EYES SCH (20:45)
[2021-11-11] MEDS: ROSUVASTATIN 20 MG TABLET PO SCH (20:45)
[2021-11-12] MEDS: INSULIN REGULAR 100 UNIT/ML SUBCUT SCH ×4 (01:48→17:42)
[2021-11-12] MEDS: SODIUM CHLORIDE 0.9% 1,000 ML IV SCH (05:03)
[2021-11-12] MEDS: LEVOTHYROXINE 50 MCG TABLET PO SCH (05:51)
[2021-11-12] MEDS: ALBUTEROL/IPRATROPIUM 3 ML NEB RESP TX SCH ×3 (06:55→23:02)
[2021-11-12] MEDS ORDERED: NITROGLYCERIN SL 0.4 MG TABLET SL PRN (08:46)
[2021-11-12] MEDS: cloNIDine 0.1 MG TABLET PO SCH ×3 (09:49→21:27)
[2021-11-12] MEDS: GLIMEPIRIDE 4 MG TABLET PO SCH ×2 (09:49→16:24)
[2021-11-12] MEDS: ISOSORBIDE MONONITRATE 60 MG TABLET PO SCH (09:49)
[2021-11-12] MEDS: allopurinoL 100 MG TABLET PO SCH (09:49)
[2021-11-12] MEDS: ASPIRIN EC 81 MG TABLET PO SCH (09:49)
[2021-11-12] MEDS: PREGABALIN 25 MG CAPSULE PO SCH ×2 (09:49→21:27)
[2021-11-12] MEDS: FUROSEMIDE 40 MG TABLET PO SCH (09:50)
[2021-11-12] MEDS: POTASSIUM CHLORIDE 20 MEQ TABLET PO SCH ×2 (09:50→21:27)
[2021-11-12] MEDS: lisinopriL 20 MG TABLET PO SCH ×2 (09:50→21:27)
[2021-11-12] MEDS: carvediloL 25 MG TABLET PO SCH ×2 (09:50→16:24)
[2021-11-12] MEDS: gemfibroziL 600 MG TABLET PO SCH ×2 (09:50→21:27)
[2021-11-12] MEDS: TAMSULOSIN 0.4 MG CAPSULE PO SCH ×2 (09:50→21:27)
[2021-11-12] MEDS: DOCUSATE SODIUM 100 MG CAPSULE PO SCH ×2 (09:50→21:27)
[2021-11-12] MEDS: CARBIDOPA/LEVODOPA 25-100 MG TABLET PO SCH ×3 (09:50→16:24)
[2021-11-12] MEDS: PANTOPRAZOLE 40 MG VIAL IV SCH (09:51)
[2021-11-12] MEDS: RIVAROXABAN 20 MG TABLET PO SCH (09:51)
[2021-11-12] MEDS: INSULIN GLARGINE 100 UNIT/ML SUBCUT SCH (09:53)
[2021-11-12] MEDS: cefTRIAXone 1,000 MG in SODIUM CHLORIDE 0.9% 100 ML IV SCH (16:24)
[2021-11-12] MEDS: ROSUVASTATIN 20 MG TABLET PO SCH (21:27)
[2021-11-12] MEDS: LATANOPROST 0.005% OPH SOLN 2.5 ML BOTTLE BOTH EYES SCH (21:28)
[2021-11-13] MEDS: INSULIN REGULAR 100 UNIT/ML SUBCUT SCH ×4 (01:23→17:09)
[2021-11-13] MEDS: MORPHINE 2 MG/1 ML SYRINGE IV PRN (01:58)
[2021-11-13] MEDS: SODIUM CHLORIDE 0.9% 1,000 ML IV SCH (05:18)
[2021-11-13] MEDS: LEVOTHYROXINE 50 MCG TABLET PO SCH (05:26)
[2021-11-13] MEDS: ALBUTEROL/IPRATROPIUM 3 ML NEB RESP TX SCH ×3 (07:10→23:30)
[2021-11-13] MEDS: CARBIDOPA/LEVODOPA 25-100 MG TABLET PO SCH ×3 (09:20→16:31)
[2021-11-13] MEDS: carvediloL 25 MG TABLET PO SCH ×2 (09:20→16:31)
[2021-11-13] MEDS: cloNIDine 0.1 MG TABLET PO SCH ×3 (09:20→21:32)
[2021-11-13] MEDS: PREGABALIN 25 MG CAPSULE PO SCH ×2 (09:21→21:32)
[2021-11-13] MEDS: DOCUSATE SODIUM 100 MG CAPSULE PO SCH ×2 (09:21→21:32)
[2021-11-13] MEDS: RIVAROXABAN 20 MG TABLET PO SCH (09:22)
[2021-11-13] MEDS: GLIMEPIRIDE 4 MG TABLET PO SCH ×2 (09:22→16:31)
[2021-11-13] MEDS: gemfibroziL 600 MG TABLET PO SCH ×2 (09:22→21:31)
[2021-11-13] MEDS: ISOSORBIDE MONONITRATE 60 MG TABLET PO SCH (09:22)
[2021-11-13] MEDS: TAMSULOSIN 0.4 MG CAPSULE PO SCH ×2 (09:22→21:32)
[2021-11-13] MEDS: ASPIRIN EC 81 MG TABLET PO SCH (09:22)
[2021-11-13] MEDS: FUROSEMIDE 40 MG TABLET PO SCH (09:22)
[2021-11-13] MEDS: POTASSIUM CHLORIDE 20 MEQ TABLET PO SCH ×2 (09:22→21:31)
[2021-11-13] MEDS: INSULIN GLARGINE 100 UNIT/ML SUBCUT SCH (09:26)
[2021-11-13] MEDS: PANTOPRAZOLE 40 MG VIAL IV SCH (09:28)
[2021-11-13] MEDS: lisinopriL 20 MG TABLET PO SCH ×2 (09:36→21:32)
[2021-11-13] MEDS: FLUTICASONE 50 MCG NASAL SPRAY 16 GM BOTTLE BOTH NARES SCH (09:36)
[2021-11-13] MEDS: allopurinoL 100 MG TABLET PO SCH (09:36)
[2021-11-13] MEDS: cefTRIAXone 1,000 MG in SODIUM CHLORIDE 0.9% 100 ML IV SCH (12:49)
[2021-11-13] MEDS ORDERED: MECLIZINE 25 MG TABLET PO ONE (13:50)
[2021-11-13] MEDS ORDERED: MECLIZINE 25 MG TABLET PO SCH (21:00)
[2021-11-13] MEDS: ROSUVASTATIN 20 MG TABLET PO SCH (21:32)
[2021-11-13] MEDS: LATANOPROST 0.005% OPH SOLN 2.5 ML BOTTLE BOTH EYES SCH (21:33)
[2021-11-14] MEDS: INSULIN REGULAR 100 UNIT/ML SUBCUT SCH ×5 (01:32→17:01)
[2021-11-14 04:38] LABS: Basophils % 0.4 % (0.0-0.8); Eosinophils # 0.2 10*3/uL (0.0-0.87); Eosinophils % 3.2 % (0.00-10.9); Hematocrit 41.8 VOL% (42.0-52.0); Hemoglobin 14.1 GM/DL (14.0-18.0); Immature Granulocytes % 0.1 %; Immature Granulocytes Absolute 0.01 #; Lymphocytes # 2.6 10*3/uL (1.4-4.0); Lymphocytes % 34.1 % (21.2-54.2); Mean Corpuscular HGB Conc 33.7 GM/DL (32-36); Mean Corpuscular Volume 89.3 FL (87-102); Mean Platelet Volume 9.8 FL (9.6-12.0); Monocytes # 0.6 10*3/uL (0.11-0.8); Monocytes % 8.3 % (1.7-12.7); Neutrophils % 53.9 % (38.7-73.9); Platelet Count 189 T/CUMM (130-400); Red Blood Count 4.68 MC/CUMM (3.8-5.5); Red Cell Distribution Width 13.2 % (9.3-17.3); White Blood Count 7.5 T/CUMM (4-12)
[2021-11-14 05:06] LABS: Calcium 8.4 MG/DL (8.5-10.1); Osmolality,Calculated 286.3 MOS/KG (273-304); Potassium 3.8 MMOL/L (3.5-5.1)
[2021-11-14] MEDS: LEVOTHYROXINE 50 MCG TABLET PO SCH (06:53)
[2021-11-14] MEDS: ALBUTEROL/IPRATROPIUM 3 ML NEB RESP TX SCH ×2 (07:20→14:19)
[2021-11-14] MEDS ORDERED: hydrALAZINE 25 MG TABLET PO SCH (09:00)
[2021-11-14] MEDS: RIVAROXABAN 20 MG TABLET PO SCH (10:31)
[2021-11-14] MEDS: CARBIDOPA/LEVODOPA 25-100 MG TABLET PO SCH ×3 (10:31→16:02)
[2021-11-14] MEDS: FUROSEMIDE 40 MG TABLET PO SCH (10:31)
[2021-11-14] MEDS: GLIMEPIRIDE 4 MG TABLET PO SCH ×2 (10:31→16:07)
[2021-11-14] MEDS: cloNIDine 0.1 MG TABLET PO SCH ×2 (10:32→16:02)
[2021-11-14] MEDS: gemfibroziL 600 MG TABLET PO SCH (10:32)
[2021-11-14] MEDS: ISOSORBIDE MONONITRATE 60 MG TABLET PO SCH (10:32)
[2021-11-14] MEDS: TAMSULOSIN 0.4 MG CAPSULE PO SCH (10:33)
[2021-11-14] MEDS: allopurinoL 100 MG TABLET PO SCH (10:33)
[2021-11-14] MEDS: ASPIRIN EC 81 MG TABLET PO SCH (10:33)
[2021-11-14] MEDS: POTASSIUM CHLORIDE 20 MEQ TABLET PO SCH (10:33)
[2021-11-14] MEDS: DOCUSATE SODIUM 100 MG CAPSULE PO SCH (10:34)
[2021-11-14] MEDS: PREGABALIN 25 MG CAPSULE PO SCH (10:34)
[2021-11-14] MEDS: carvediloL 25 MG TABLET PO SCH ×2 (10:36→16:02)
[2021-11-14] MEDS: PANTOPRAZOLE 40 MG VIAL IV SCH (10:37)
[2021-11-14] MEDS: lisinopriL 20 MG TABLET PO SCH (10:37)
[2021-11-14] MEDS: INSULIN GLARGINE 100 UNIT/ML SUBCUT SCH (10:38)
[2021-11-14 15:53] VITALS: BP 171/88
[2021-11-14] MEDS: SODIUM CHLORIDE 0.9% 1,000 ML IV SCH (16:44)
== END 2021-11-14 18:51 | disposition home health service (06) | DRG 309 ==
LOC: N.EDINP 00:44 → N.ED 00:44 → N.EDINP 04:10 → N.TELEN 04:43
PROVIDERS: ADMIT Internal Medicine; ATTEND Internal Medicine

== ENCOUNTER 2022-03-13 21:23 | Inpatient (IN) ==
[2022-03-13] MEDS ORDERED: NITROGLYCERIN SL 0.4 MG TABLET SL STA (21:57)
[2022-03-13] MEDS ORDERED: ASPIRIN CHEW 81 MG TABLET PO STA (21:57)
[2022-03-13 22:22] LABS: Basophils % 0.5 % (0.0-0.8); Eosinophils # 0.3 10*3/uL (0.0-0.87); Eosinophils % 4.4 % (0.00-10.9); Hematocrit 40.3 VOL% (42.0-52.0); Hemoglobin 13.9 GM/DL (14.0-18.0); Immature Granulocytes % 0.2 %; Immature Granulocytes Absolute 0.01 #; Lymphocytes # 2.6 10*3/uL (1.4-4.0); Lymphocytes % 41.9 % (21.2-54.2); Mean Corpuscular HGB Conc 34.5 GM/DL (32-36); Mean Platelet Volume 9.8 FL (9.6-12.0); Monocytes # 0.6 10*3/uL (0.11-0.8); Monocytes % 10.4 % (1.7-12.7); Neutrophils % 42.6 % (38.7-73.9); Platelet Count 167 T/CUMM (130-400); Red Blood Count 4.63 MC/CUMM (3.8-5.5); Red Cell Distribution Width 13.1 % (9.3-17.3); White Blood Count 6.1 T/CUMM (4-12)
[2022-03-13 23:39] LABS: Alanine Aminotransferase < 9 U/L (16-61); Albumin 3.6 G/DL (3.4-5.0); Alkaline Phosphatase 68 U/L (45-117); Aspartate Amino Transferase 21 U/L (0-37); Blood Urea Nitrogen 15 MG/DL (7-18); Calcium 7.9 MG/DL (8.5-10.1); Carbon Dioxide 28 MMOL/L (21-32); Chloride 101 MMOL/L (98-107); Glucose 431 MG/DL (74-106); Osmolality,Calculated 288.1 MOS/KG (273-304); Potassium 4.2 MMOL/L (3.5-5.1); Sodium 135 MMOL/L (136-145)
[2022-03-14] MEDS ORDERED: INSULIN REGULAR 100 UNIT/ML IV STA (01:15)
[2022-03-14] MEDS ORDERED: SODIUM CHLORIDE 0.9% 1,000 ML IV STA (01:15)
[2022-03-14] MEDS ORDERED: GLUCAGON 1 MG VIAL IM PRN (02:16)
[2022-03-14] MEDS ORDERED: ACETAMINOPHEN 325 MG TABLET PO PRN (02:16)
[2022-03-14] MEDS ORDERED: ONDANSETRON 4 MG/2 ML VIAL IV PRN (02:16)
[2022-03-14] MEDS ORDERED: DEXTROSE 10% 250 ML BAG IV PRN (02:21)
[2022-03-14] MEDS: SODIUM CHLORIDE 0.9% 1,000 ML IV SCH ×4 (02:30→20:00)
[2022-03-14] MEDS: INSULIN REGULAR 100 UNIT/ML SUBCUT SCH ×4 (06:10→18:49)
[2022-03-14] MEDS: DOCUSATE SODIUM 100 MG CAPSULE PO SCH ×2 (11:11→21:09)
[2022-03-14] MEDS: PANTOPRAZOLE 40 MG TABLET PO SCH (11:11)
[2022-03-14] MEDS: traMADol 50 MG TABLET PO SCH ×2 (16:18→21:13)
[2022-03-14] MEDS ORDERED: ONDANSETRON ODT 4 MG TABLET PO PRN (20:15)
[2022-03-14] MEDS ORDERED: CYCLOBENZAPRINE 10 MG TABLET PO PRN (20:15)
[2022-03-14] MEDS ORDERED: BRIMONIDINE 0.2% OPH SOLN 5 ML BOTTLE BOTH EYES PRN (20:15)
[2022-03-14] MEDS ORDERED: SKIN HEALING OINT (AQUAPHOR) 50 GM TUBE TOP PRN (20:27)
[2022-03-14] MEDS ORDERED: ALBUTEROL/IPRATROPIUM 3 ML NEB RESP TX SCH (21:00)
[2022-03-14] MEDS: oxyCODONE/ACETAMINOPHEN 5-325 MG TABLET PO PRN (21:09)
[2022-03-14] MEDS: hydrALAZINE 25 MG TABLET PO SCH (21:24)
[2022-03-14] MEDS: PREGABALIN 25 MG CAPSULE PO SCH (21:25)
[2022-03-14] MEDS: TAMSULOSIN 0.4 MG CAPSULE PO SCH (21:25)
[2022-03-14] MEDS: lisinopriL 20 MG TABLET PO SCH (21:25)
[2022-03-14] MEDS: MECLIZINE 25 MG TABLET PO SCH (21:25)
[2022-03-14] MEDS: PREGABALIN 100 MG CAPSULE PO SCH (21:25)
[2022-03-14] MEDS: ROSUVASTATIN 20 MG TABLET PO SCH (21:25)
[2022-03-14] MEDS: CARBIDOPA/LEVODOPA 25-100 MG TABLET PO SCH (21:26)
[2022-03-14] MEDS: carvediloL 25 MG TABLET PO SCH (21:28)
[2022-03-14] MEDS: TERAZOSIN 1 MG CAPSULE PO SCH (21:28)
[2022-03-14] MEDS: GLIMEPIRIDE 4 MG TABLET PO SCH (21:30)
[2022-03-14] MEDS: INSULIN GLARGINE 100 UNIT/ML SUBCUT SCH (22:00)
[2022-03-14] MEDS: ENTACAPONE 200 MG TABLET PO SCH (22:00)
[2022-03-15] MEDS: INSULIN REGULAR 100 UNIT/ML SUBCUT SCH ×4 (00:29→16:59)
[2022-03-15 05:51] LABS: Basophils % 0.4 % (0.0-0.8); Eosinophils # 0.3 10*3/uL (0.0-0.87); Eosinophils % 3.4 % (0.00-10.9); Hematocrit 40.8 VOL% (42.0-52.0); Hemoglobin 13.5 GM/DL (14.0-18.0); Immature Granulocytes % 0.5 %; Immature Granulocytes Absolute 0.04 #; Lymphocytes # 2.8 10*3/uL (1.4-4.0); Lymphocytes % 37.7 % (21.2-54.2); Mean Corpuscular HGB Conc 33.1 GM/DL (32-36); Mean Corpuscular Volume 89.3 FL (87-102); Mean Platelet Volume 10.1 FL (9.6-12.0); Monocytes # 0.6 10*3/uL (0.11-0.8); Monocytes % 7.4 % (1.7-12.7); Neutrophils % 50.6 % (38.7-73.9); Platelet Count 169 T/CUMM (130-400); Red Blood Count 4.57 MC/CUMM (3.8-5.5); Red Cell Distribution Width 13.2 % (9.3-17.3); White Blood Count 7.4 T/CUMM (4-12)
[2022-03-15 06:15] LABS: Calcium 8.3 MG/DL (8.5-10.1); Osmolality,Calculated 286.3 MOS/KG (273-304); Potassium 4.3 MMOL/L (3.5-5.1)
[2022-03-15] MEDS: LEVOTHYROXINE 50 MCG TABLET PO SCH (06:30)
[2022-03-15] MEDS: ALBUTEROL/IPRATROPIUM 3 ML NEB RESP TX SCH ×2 (07:52→13:13)
[2022-03-15] MEDS: PREGABALIN 100 MG CAPSULE PO SCH ×2 (08:32→20:56)
[2022-03-15] MEDS: lisinopriL 20 MG TABLET PO SCH ×2 (08:32→20:57)
[2022-03-15] MEDS: oxyCODONE/ACETAMINOPHEN 5-325 MG TABLET PO PRN ×2 (08:33→20:55)
[2022-03-15] MEDS: traMADol 50 MG TABLET PO SCH ×4 (08:34→20:58)
[2022-03-15] MEDS: hydrALAZINE 25 MG TABLET PO SCH ×2 (08:34→20:57)
[2022-03-15] MEDS: carvediloL 25 MG TABLET PO SCH ×2 (08:34→16:55)
[2022-03-15] MEDS: DOCUSATE SODIUM 100 MG CAPSULE PO SCH ×2 (08:34→20:57)
[2022-03-15] MEDS: CARBIDOPA/LEVODOPA 25-100 MG TABLET PO SCH ×3 (08:34→20:56)
[2022-03-15] MEDS: TAMSULOSIN 0.4 MG CAPSULE PO SCH ×2 (08:34→20:57)
[2022-03-15] MEDS: PREGABALIN 25 MG CAPSULE PO SCH ×2 (08:34→20:57)
[2022-03-15] MEDS: allopurinoL 100 MG TABLET PO SCH (08:34)
[2022-03-15] MEDS: GLIMEPIRIDE 4 MG TABLET PO SCH ×2 (08:34→16:55)
[2022-03-15] MEDS: SILVER SULFADIAZINE 1% CREAM 25 GM TUBE TOP SCH (08:35)
[2022-03-15] MEDS: ENTACAPONE 200 MG TABLET PO SCH ×3 (08:35→20:56)
[2022-03-15] MEDS: PANTOPRAZOLE 40 MG TABLET PO SCH (08:35)
[2022-03-15] MEDS: DAPAGLIFLOZIN 10 MG TABLET PO SCH (08:35)
[2022-03-15] MEDS: FLUTICASONE 50 MCG NASAL SPRAY 16 GM BOTTLE BOTH NARES SCH (08:35)
[2022-03-15] MEDS: ASPIRIN EC 81 MG TABLET PO SCH (08:35)
[2022-03-15] MEDS: RIVAROXABAN 20 MG TABLET PO SCH (08:38)
[2022-03-15] MEDS: ISOSORBIDE MONONITRATE 60 MG TABLET PO SCH (08:38)
[2022-03-15] MEDS ORDERED: RANOLAZINE 500 MG TABLET PO SCH (09:00)
[2022-03-15] MEDS: SODIUM CHLORIDE 0.9% 1,000 ML IV SCH (09:51)
[2022-03-15] MEDS: DILTIAZEM CD 120 MG CAPSULE PO SCH (10:47)
[2022-03-15] MEDS ORDERED: ALUM/MAG/SIMETH/LIDO VISC 1:1 30 ML BOTTLE PO ONE (11:59)
[2022-03-15] MEDS ORDERED: ASPIRIN CHEW 81 MG TABLET PO ONE (12:12)
[2022-03-15 12:30] LABS: Arterial Base Excess iSTAT 0 MMOL/L (-2.5-2.5); Arterial Bicarbonate iSTAT 25.2 MMOL/L (20-26); Arterial O2 Saturation iSTAT 97 % (95-100); Arterial PCO2 iSTAT 42 MM HG (35-48); Arterial PO2 iSTAT 93 MM HG (80-95); Arterial Total CO2 iSTAT 26 MMO/L (23-27); Arterial pH iSTAT 7.387 (7.35-7.45)
[2022-03-15] MEDS: LEVALBUTEROL 1.25 MG/3 ML NEB RESP TX SCH (19:39)
[2022-03-15] MEDS: ROSUVASTATIN 20 MG TABLET PO SCH (20:56)
[2022-03-15] MEDS: RANOLAZINE 500 MG TABLET PO SCH (20:57)
[2022-03-15] MEDS: TERAZOSIN 1 MG CAPSULE PO SCH (20:57)
[2022-03-15] MEDS: MECLIZINE 25 MG TABLET PO SCH (20:57)
[2022-03-15] MEDS: INSULIN GLARGINE 100 UNIT/ML SUBCUT SCH (21:02)
[2022-03-16] MEDS: LEVALBUTEROL 1.25 MG/3 ML NEB RESP TX SCH ×4 (00:22→18:40)
[2022-03-16] MEDS: INSULIN REGULAR 100 UNIT/ML SUBCUT SCH ×4 (01:14→17:20)
[2022-03-16] MEDS: MORPHINE 2 MG/1 ML SYRINGE IV PRN (03:52)
[2022-03-16 04:19] LABS: Basophils % 0.4 % (0.0-0.8); Eosinophils # 0.3 10*3/uL (0.0-0.87); Eosinophils % 3.8 % (0.00-10.9); Hematocrit 38.8 VOL% (42.0-52.0); Hemoglobin 12.8 GM/DL (14.0-18.0); Immature Granulocytes % 0.4 %; Immature Granulocytes Absolute 0.03 #; Lymphocytes # 3.1 10*3/uL (1.4-4.0); Lymphocytes % 39.5 % (21.2-54.2); Mean Corpuscular Volume 91.1 FL (87-102); Mean Platelet Volume 10.2 FL (9.6-12.0); Monocytes # 0.7 10*3/uL (0.11-0.8); Monocytes % 8.5 % (1.7-12.7); Neutrophils % 47.4 % (38.7-73.9); Platelet Count 159 T/CUMM (130-400); Red Blood Count 4.26 MC/CUMM (3.8-5.5); Red Cell Distribution Width 13.4 % (9.3-17.3); White Blood Count 7.7 T/CUMM (4-12)
[2022-03-16 04:36] LABS: Calcium 7.8 MG/DL (8.5-10.1); Osmolality,Calculated 283.7 MOS/KG (273-304); Potassium 4.2 MMOL/L (3.5-5.1)
[2022-03-16] MEDS: TAMSULOSIN 0.4 MG CAPSULE PO SCH ×2 (08:49→21:23)
[2022-03-16] MEDS: lisinopriL 20 MG TABLET PO SCH ×2 (08:50→21:24)
[2022-03-16] MEDS: traMADol 50 MG TABLET PO SCH ×4 (08:51→21:25)
[2022-03-16] MEDS: carvediloL 25 MG TABLET PO SCH ×2 (08:51→16:13)
[2022-03-16] MEDS: DOCUSATE SODIUM 100 MG CAPSULE PO SCH ×2 (08:52→21:22)
[2022-03-16] MEDS: GLIMEPIRIDE 4 MG TABLET PO SCH ×2 (08:52→16:13)
[2022-03-16] MEDS: ENTACAPONE 200 MG TABLET PO SCH ×3 (08:52→22:03)
[2022-03-16] MEDS: hydrALAZINE 25 MG TABLET PO SCH ×2 (08:52→21:32)
[2022-03-16] MEDS: ISOSORBIDE MONONITRATE 60 MG TABLET PO SCH (08:53)
[2022-03-16] MEDS: DILTIAZEM CD 120 MG CAPSULE PO SCH (08:53)
[2022-03-16] MEDS: ASPIRIN EC 81 MG TABLET PO SCH (08:53)
[2022-03-16] MEDS: PREGABALIN 100 MG CAPSULE PO SCH ×2 (08:53→21:23)
[2022-03-16] MEDS: DAPAGLIFLOZIN 10 MG TABLET PO SCH (08:53)
[2022-03-16] MEDS: PREGABALIN 25 MG CAPSULE PO SCH ×2 (08:54→21:23)
[2022-03-16] MEDS: PANTOPRAZOLE 40 MG TABLET PO SCH (08:54)
[2022-03-16] MEDS: allopurinoL 100 MG TABLET PO SCH (08:54)
[2022-03-16] MEDS: CARBIDOPA/LEVODOPA 25-100 MG TABLET PO SCH ×3 (08:54→21:24)
[2022-03-16] MEDS: RIVAROXABAN 20 MG TABLET PO SCH (08:54)
[2022-03-16] MEDS: RANOLAZINE 500 MG TABLET PO SCH ×2 (08:55→21:24)
[2022-03-16] MEDS: LEVOTHYROXINE 50 MCG TABLET PO SCH (08:56)
[2022-03-16] MEDS: SILVER SULFADIAZINE 1% CREAM 25 GM TUBE TOP SCH (08:57)
[2022-03-16] MEDS: SODIUM CHLORIDE 0.9% 1,000 ML IV SCH ×3 (09:54→22:42)
[2022-03-16] MEDS: oxyCODONE/ACETAMINOPHEN 5-325 MG TABLET PO PRN ×2 (12:07→17:24)
[2022-03-16] MEDS: MECLIZINE 25 MG TABLET PO SCH (21:20)
[2022-03-16] MEDS: ROSUVASTATIN 20 MG TABLET PO SCH (21:22)
[2022-03-16] MEDS: TERAZOSIN 1 MG CAPSULE PO SCH (21:23)
[2022-03-16] MEDS: INSULIN GLARGINE 100 UNIT/ML SUBCUT SCH (22:03)
[2022-03-17] MEDS: LEVALBUTEROL 1.25 MG/3 ML NEB RESP TX SCH ×4 (00:41→20:09)
[2022-03-17] MEDS: INSULIN REGULAR 100 UNIT/ML SUBCUT SCH ×4 (02:21→17:58)
[2022-03-17] MEDS: LEVOTHYROXINE 50 MCG TABLET PO SCH (05:44)
[2022-03-17] MEDS: oxyCODONE/ACETAMINOPHEN 5-325 MG TABLET PO PRN ×2 (05:45→17:59)
[2022-03-17] MEDS: lisinopriL 20 MG TABLET PO SCH ×2 (08:39→21:25)
[2022-03-17] MEDS: PREGABALIN 25 MG CAPSULE PO SCH ×2 (08:39→21:23)
[2022-03-17] MEDS: RANOLAZINE 500 MG TABLET PO SCH ×2 (08:39→21:24)
[2022-03-17] MEDS: DAPAGLIFLOZIN 10 MG TABLET PO SCH (08:40)
[2022-03-17] MEDS: ENTACAPONE 200 MG TABLET PO SCH ×3 (08:40→21:25)
[2022-03-17] MEDS: hydrALAZINE 25 MG TABLET PO SCH ×2 (08:40→21:26)
[2022-03-17] MEDS: TAMSULOSIN 0.4 MG CAPSULE PO SCH ×2 (08:40→21:26)
[2022-03-17] MEDS: ISOSORBIDE MONONITRATE 60 MG TABLET PO SCH (08:40)
[2022-03-17] MEDS: ASPIRIN EC 81 MG TABLET PO SCH (08:40)
[2022-03-17] MEDS: PANTOPRAZOLE 40 MG TABLET PO SCH (08:40)
[2022-03-17] MEDS: DOCUSATE SODIUM 100 MG CAPSULE PO SCH ×2 (08:40→21:25)
[2022-03-17] MEDS: CARBIDOPA/LEVODOPA 25-100 MG TABLET PO SCH ×3 (08:40→21:24)
[2022-03-17] MEDS: allopurinoL 100 MG TABLET PO SCH (08:41)
[2022-03-17] MEDS: GLIMEPIRIDE 4 MG TABLET PO SCH ×2 (08:41→16:25)
[2022-03-17] MEDS: PREGABALIN 100 MG CAPSULE PO SCH ×2 (08:41→21:25)
[2022-03-17] MEDS: traMADol 50 MG TABLET PO SCH ×4 (08:41→21:26)
[2022-03-17] MEDS: DILTIAZEM CD 120 MG CAPSULE PO SCH (08:41)
[2022-03-17] MEDS: carvediloL 25 MG TABLET PO SCH ×2 (08:41→16:25)
[2022-03-17] MEDS: RIVAROXABAN 20 MG TABLET PO SCH (08:41)
[2022-03-17] MEDS: SILVER SULFADIAZINE 1% CREAM 25 GM TUBE TOP SCH (08:48)
[2022-03-17] MEDS: MORPHINE 2 MG/1 ML SYRINGE IV PRN (09:14)
[2022-03-17] MEDS: SODIUM CHLORIDE 0.9% 1,000 ML IV SCH (12:09)
[2022-03-17] MEDS: ROSUVASTATIN 20 MG TABLET PO SCH (21:24)
[2022-03-17] MEDS: TERAZOSIN 1 MG CAPSULE PO SCH (21:24)
[2022-03-17] MEDS: MECLIZINE 25 MG TABLET PO SCH (21:25)
[2022-03-17] MEDS: INSULIN GLARGINE 100 UNIT/ML SUBCUT SCH (21:30)
[2022-03-18] MEDS: INSULIN REGULAR 100 UNIT/ML SUBCUT SCH ×4 (00:16→18:45)
[2022-03-18] MEDS: SODIUM CHLORIDE 0.9% 1,000 ML IV SCH ×2 (01:02→15:36)
[2022-03-18] MEDS: LEVALBUTEROL 1.25 MG/3 ML NEB RESP TX SCH ×4 (01:56→19:41)
[2022-03-18] MEDS: oxyCODONE/ACETAMINOPHEN 5-325 MG TABLET PO PRN ×2 (02:38→17:51)
[2022-03-18] MEDS: LEVOTHYROXINE 50 MCG TABLET PO SCH (05:36)
[2022-03-18] MEDS: lisinopriL 20 MG TABLET PO SCH ×2 (09:19→21:44)
[2022-03-18] MEDS: DAPAGLIFLOZIN 10 MG TABLET PO SCH (09:19)
[2022-03-18] MEDS: TAMSULOSIN 0.4 MG CAPSULE PO SCH ×2 (09:19→21:36)
[2022-03-18] MEDS: PREGABALIN 100 MG CAPSULE PO SCH ×2 (09:19→21:36)
[2022-03-18] MEDS: ISOSORBIDE MONONITRATE 60 MG TABLET PO SCH (09:20)
[2022-03-18] MEDS: carvediloL 25 MG TABLET PO SCH ×2 (09:20→17:51)
[2022-03-18] MEDS: hydrALAZINE 25 MG TABLET PO SCH ×2 (09:20→21:35)
[2022-03-18] MEDS: RANOLAZINE 500 MG TABLET PO SCH ×2 (09:20→21:34)
[2022-03-18] MEDS: RIVAROXABAN 20 MG TABLET PO SCH (09:20)
[2022-03-18] MEDS: traMADol 50 MG TABLET PO SCH ×4 (09:21→21:35)
[2022-03-18] MEDS: DOCUSATE SODIUM 100 MG CAPSULE PO SCH ×2 (09:21→21:36)
[2022-03-18] MEDS: ASPIRIN EC 81 MG TABLET PO SCH (09:21)
[2022-03-18] MEDS: GLIMEPIRIDE 4 MG TABLET PO SCH ×2 (09:21→17:50)
[2022-03-18] MEDS: ENTACAPONE 200 MG TABLET PO SCH ×3 (09:22→21:40)
[2022-03-18] MEDS: allopurinoL 100 MG TABLET PO SCH (09:22)
[2022-03-18] MEDS: PANTOPRAZOLE 40 MG TABLET PO SCH (09:22)
[2022-03-18] MEDS: CARBIDOPA/LEVODOPA 25-100 MG TABLET PO SCH ×3 (09:22→21:34)
[2022-03-18] MEDS: PREGABALIN 25 MG CAPSULE PO SCH ×2 (09:22→21:36)
[2022-03-18] MEDS: DILTIAZEM CD 120 MG CAPSULE PO SCH (09:22)
[2022-03-18] MEDS: FLUTICASONE 50 MCG NASAL SPRAY 16 GM BOTTLE BOTH NARES SCH (10:11)
[2022-03-18] MEDS: SILVER SULFADIAZINE 1% CREAM 25 GM TUBE TOP SCH (10:12)
[2022-03-18] MEDS: ALBUTEROL/IPRATROPIUM 3 ML NEB RESP TX SCH ×2 (14:30→19:41)
[2022-03-18] MEDS: TERAZOSIN 1 MG CAPSULE PO SCH (21:34)
[2022-03-18] MEDS: ROSUVASTATIN 20 MG TABLET PO SCH (21:34)
[2022-03-18] MEDS: MECLIZINE 25 MG TABLET PO SCH (21:40)
[2022-03-18] MEDS: INSULIN GLARGINE 100 UNIT/ML SUBCUT SCH (22:04)
[2022-03-19] MEDS: LEVALBUTEROL 1.25 MG/3 ML NEB RESP TX SCH (00:50)
[2022-03-19] MEDS: INSULIN REGULAR 100 UNIT/ML SUBCUT SCH ×4 (01:04→18:19)
[2022-03-19] MEDS: oxyCODONE/ACETAMINOPHEN 5-325 MG TABLET PO PRN ×2 (04:11→13:02)
[2022-03-19] MEDS: LEVOTHYROXINE 50 MCG TABLET PO SCH (05:39)
[2022-03-19] MEDS: ALBUTEROL/IPRATROPIUM 3 ML NEB RESP TX SCH ×3 (07:24→19:00)
[2022-03-19] MEDS: PANTOPRAZOLE 40 MG TABLET PO SCH (09:14)
[2022-03-19] MEDS: DILTIAZEM CD 120 MG CAPSULE PO SCH (09:14)
[2022-03-19] MEDS: PREGABALIN 25 MG CAPSULE PO SCH ×2 (09:14→21:53)
[2022-03-19] MEDS: TAMSULOSIN 0.4 MG CAPSULE PO SCH ×2 (09:14→21:38)
[2022-03-19] MEDS: carvediloL 25 MG TABLET PO SCH ×2 (09:14→16:50)
[2022-03-19] MEDS: PREGABALIN 100 MG CAPSULE PO SCH ×2 (09:14→21:37)
[2022-03-19] MEDS: GLIMEPIRIDE 4 MG TABLET PO SCH ×2 (09:14→16:50)
[2022-03-19] MEDS: DAPAGLIFLOZIN 10 MG TABLET PO SCH (09:14)
[2022-03-19] MEDS: CARBIDOPA/LEVODOPA 25-100 MG TABLET PO SCH ×3 (09:14→21:37)
[2022-03-19] MEDS: DOCUSATE SODIUM 100 MG CAPSULE PO SCH ×2 (09:14→21:38)
[2022-03-19] MEDS: RANOLAZINE 500 MG TABLET PO SCH ×2 (09:15→21:38)
[2022-03-19] MEDS: lisinopriL 20 MG TABLET PO SCH ×2 (09:15→21:38)
[2022-03-19] MEDS: RIVAROXABAN 20 MG TABLET PO SCH (09:15)
[2022-03-19] MEDS: traMADol 50 MG TABLET PO SCH ×4 (09:15→21:38)
[2022-03-19] MEDS: allopurinoL 100 MG TABLET PO SCH (09:15)
[2022-03-19] MEDS: hydrALAZINE 25 MG TABLET PO SCH ×2 (09:15→21:38)
[2022-03-19] MEDS: ISOSORBIDE MONONITRATE 60 MG TABLET PO SCH (09:15)
[2022-03-19] MEDS: ASPIRIN EC 81 MG TABLET PO SCH (09:15)
[2022-03-19] MEDS: ENTACAPONE 200 MG TABLET PO SCH ×3 (09:16→21:38)
[2022-03-19] MEDS: SILVER SULFADIAZINE 1% CREAM 25 GM TUBE TOP SCH (09:19)
[2022-03-19] MEDS: SODIUM CHLORIDE 0.9% 1,000 ML IV SCH (13:03)
[2022-03-19] MEDS: ROSUVASTATIN 20 MG TABLET PO SCH (21:37)
[2022-03-19] MEDS: TERAZOSIN 1 MG CAPSULE PO SCH (21:37)
[2022-03-19] MEDS: MECLIZINE 25 MG TABLET PO SCH (21:38)
[2022-03-19] MEDS: INSULIN GLARGINE 100 UNIT/ML SUBCUT SCH (21:41)
[2022-03-20] MEDS: INSULIN REGULAR 100 UNIT/ML SUBCUT SCH ×4 (01:22→18:30)
[2022-03-20 05:27] LABS: Basophils % 0.3 % (0.0-0.8); Eosinophils # 0.1 10*3/uL (0.0-0.87); Eosinophils % 2.1 % (0.00-10.9); Hematocrit 39.2 VOL% (42.0-52.0); Hemoglobin 13.4 GM/DL (14.0-18.0); Immature Granulocytes % 0.1 %; Immature Granulocytes Absolute 0.01 #; Lymphocytes # 1.6 10*3/uL (1.4-4.0); Lymphocytes % 24.1 % (21.2-54.2); Mean Corpuscular HGB Conc 34.2 GM/DL (32-36); Mean Corpuscular Volume 90.7 FL (87-102); Mean Platelet Volume 10.3 FL (9.6-12.0); Monocytes # 0.6 10*3/uL (0.11-0.8); Monocytes % 8.7 % (1.7-12.7); Neutrophils % 64.7 % (38.7-73.9); Platelet Count 181 T/CUMM (130-400); Red Blood Count 4.32 MC/CUMM (3.8-5.5); Red Cell Distribution Width 13.6 % (9.3-17.3); White Blood Count 6.8 T/CUMM (4-12)
[2022-03-20 06:25] LABS: Osmolality,Calculated 283.1 MOS/KG (273-304); Potassium 4.3 MMOL/L (3.5-5.1)
[2022-03-20] MEDS: LEVOTHYROXINE 50 MCG TABLET PO SCH (06:36)
[2022-03-20] MEDS: SODIUM CHLORIDE 0.9% 1,000 ML IV SCH (06:37)
[2022-03-20] MEDS: ALBUTEROL/IPRATROPIUM 3 ML NEB RESP TX SCH ×3 (07:19→19:46)
[2022-03-20] MEDS: PREGABALIN 100 MG CAPSULE PO SCH ×2 (09:15→20:22)
[2022-03-20] MEDS: CARBIDOPA/LEVODOPA 25-100 MG TABLET PO SCH ×3 (09:15→20:22)
[2022-03-20] MEDS: RIVAROXABAN 20 MG TABLET PO SCH (09:15)
[2022-03-20] MEDS: hydrALAZINE 25 MG TABLET PO SCH ×2 (09:15→20:22)
[2022-03-20] MEDS: TAMSULOSIN 0.4 MG CAPSULE PO SCH ×2 (09:16→20:22)
[2022-03-20] MEDS: lisinopriL 20 MG TABLET PO SCH ×2 (09:16→20:23)
[2022-03-20] MEDS: traMADol 50 MG TABLET PO SCH ×4 (09:16→20:23)
[2022-03-20] MEDS: DAPAGLIFLOZIN 10 MG TABLET PO SCH (09:16)
[2022-03-20] MEDS: allopurinoL 100 MG TABLET PO SCH (09:16)
[2022-03-20] MEDS: carvediloL 25 MG TABLET PO SCH ×2 (09:17→17:27)
[2022-03-20] MEDS: ASPIRIN EC 81 MG TABLET PO SCH (09:17)
[2022-03-20] MEDS: GLIMEPIRIDE 4 MG TABLET PO SCH ×2 (09:17→17:25)
[2022-03-20] MEDS: DILTIAZEM CD 120 MG CAPSULE PO SCH (09:17)
[2022-03-20] MEDS: RANOLAZINE 500 MG TABLET PO SCH ×2 (09:17→20:23)
[2022-03-20] MEDS: PANTOPRAZOLE 40 MG TABLET PO SCH (09:17)
[2022-03-20] MEDS: PREGABALIN 25 MG CAPSULE PO SCH ×2 (09:17→20:22)
[2022-03-20] MEDS: ISOSORBIDE MONONITRATE 60 MG TABLET PO SCH (09:17)
[2022-03-20] MEDS: ENTACAPONE 200 MG TABLET PO SCH ×3 (09:18→20:22)
[2022-03-20] MEDS: SILVER SULFADIAZINE 1% CREAM 25 GM TUBE TOP SCH (09:18)
[2022-03-20] MEDS: DOCUSATE SODIUM 100 MG CAPSULE PO SCH ×2 (09:22→20:23)
[2022-03-20] MEDS: MECLIZINE 25 MG TABLET PO SCH (20:21)
[2022-03-20] MEDS: ROSUVASTATIN 20 MG TABLET PO SCH (20:21)
[2022-03-20] MEDS: TERAZOSIN 1 MG CAPSULE PO SCH (20:23)
[2022-03-20] MEDS: INSULIN GLARGINE 100 UNIT/ML SUBCUT SCH (20:33)
[2022-03-20] MEDS ORDERED: DILTIAZEM 60 MG TABLET PO ONE (22:25)
[2022-03-21] MEDS: INSULIN REGULAR 100 UNIT/ML SUBCUT SCH ×3 (00:23→14:50)
[2022-03-21] MEDS: SODIUM CHLORIDE 0.9% 1,000 ML IV SCH (04:01)
[2022-03-21] MEDS: LEVOTHYROXINE 50 MCG TABLET PO SCH (06:02)
[2022-03-21] MEDS ORDERED: DILTIAZEM CD 180 MG CAPSULE PO SCH (09:00)
[2022-03-21] MEDS: DOCUSATE SODIUM 100 MG CAPSULE PO SCH (09:26)
[2022-03-21] MEDS: CARBIDOPA/LEVODOPA 25-100 MG TABLET PO SCH ×2 (09:26→15:26)
[2022-03-21] MEDS: GLIMEPIRIDE 4 MG TABLET PO SCH (09:26)
[2022-03-21] MEDS: ISOSORBIDE MONONITRATE 60 MG TABLET PO SCH (09:26)
[2022-03-21] MEDS: lisinopriL 20 MG TABLET PO SCH (09:26)
[2022-03-21] MEDS: hydrALAZINE 25 MG TABLET PO SCH (09:27)
[2022-03-21] MEDS: DAPAGLIFLOZIN 10 MG TABLET PO SCH (09:27)
[2022-03-21] MEDS: ENTACAPONE 200 MG TABLET PO SCH ×2 (09:27→15:26)
[2022-03-21] MEDS: allopurinoL 100 MG TABLET PO SCH (09:27)
[2022-03-21] MEDS: carvediloL 25 MG TABLET PO SCH (09:27)
[2022-03-21] MEDS: PREGABALIN 25 MG CAPSULE PO SCH (09:27)
[2022-03-21] MEDS: PANTOPRAZOLE 40 MG TABLET PO SCH (09:27)
[2022-03-21] MEDS: RIVAROXABAN 20 MG TABLET PO SCH (09:27)
[2022-03-21] MEDS: traMADol 50 MG TABLET PO SCH ×2 (09:27→15:25)
[2022-03-21] MEDS: ASPIRIN EC 81 MG TABLET PO SCH (09:27)
[2022-03-21] MEDS: RANOLAZINE 500 MG TABLET PO SCH (09:27)
[2022-03-21] MEDS: PREGABALIN 100 MG CAPSULE PO SCH (09:27)
[2022-03-21] MEDS: TAMSULOSIN 0.4 MG CAPSULE PO SCH (09:28)
[2022-03-21] MEDS: FLUTICASONE 50 MCG NASAL SPRAY 16 GM BOTTLE BOTH NARES SCH (09:30)
[2022-03-21] MEDS: SILVER SULFADIAZINE 1% CREAM 25 GM TUBE TOP SCH (09:30)
[2022-03-21] MEDS: ALBUTEROL/IPRATROPIUM 3 ML NEB RESP TX SCH ×2 (09:44→14:31)
[2022-03-21 14:44] VITALS: BP 152/90
== END 2022-03-21 14:57 | disposition home health service (06) | DRG 309 ==
LOC: N.ED 21:23 → N.EDINP 21:23 → N.2W 03-14 08:33 → N.TELES 03-16 19:16
PROVIDERS: ADMIT Internal Medicine; ATTEND Internal Medicine